=== PATIENT | male | born 1960 | race Caucasian/White ===

== ENCOUNTER → 2017-07-09 07:10 | Outpatient (CLI) | payer BC, SELFPAY ==
[2017-07-09 08:18] LABS: AST(SGOT) 16 U/L (15-37); Alanine Aminotransfer ALT/SGPT 27 U/L (16-61); Albumin, Serum 3.3 g/dL (3.2-5.0); Alkaline Phosphatase 65 U/L (45-117); Bilirubin, Direct 0.14 mg/dL (0.00-0.30); Cholesterol 120 mg/dL (200); Globulin 3.7 g/dL (2.2-4.2); High Density Lipoprotein 49 mg/dL; Triglycerides 85 mg/dL; Very Low Density Lipoprotein 17 mg/dL (5-40)
== END ==
PROVIDERS: Family Provider Internal Medicine; PCP Internal Medicine; Visit Provider Internal Medicine Cardiovascular Disease
DX: E78.5 Hyperlipidemia, unspecified (principal); Z79.899 Other long term (current) drug therapy
CPT/HCPCS: 36415; 80061; 80076

== ENCOUNTER → 2018-07-10 08:50 | Outpatient (CLI) | payer BC, SELFPAY ==
[2018-07-10 09:51] LABS: AST(SGOT) 24 U/L (15-37); Alanine Aminotransfer ALT/SGPT 38 U/L (16-61); Albumin, Serum 3.3 g/dL (3.2-5.0); Alkaline Phosphatase 68 U/L (45-117); Bilirubin, Direct 0.11 mg/dL (0.00-0.30); Cholesterol 132 mg/dL (200); Globulin 3.6 g/dL (2.2-4.2); High Density Lipoprotein 52 mg/dL; Protein, Total 6.9 g/dL (6.4-8.2); Triglycerides 82 mg/dL; Very Low Density Lipoprotein 16 mg/dL (5-40)
== END ==
PROVIDERS: Family Provider Internal Medicine; PCP Internal Medicine; Referring Provider Internal Medicine Cardiovascular Disease; Visit Provider Internal Medicine Cardiovascular Disease
DX: E78.5 Hyperlipidemia, unspecified (principal); Z79.899 Other long term (current) drug therapy
CPT/HCPCS: 36415; 80061; 80076

== ENCOUNTER → 2018-11-03 11:44 | Outpatient (CLI) | payer SELFPAY, BC ==
[2018-07-24 15:57] VITALS: BMI 23.8
--- NOTE | 2018-11-03 17:33 | STRESSREP_ITS ---
Stress Test Report Exercise stress test. 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 Medications Plavix ramipril metoprolol aspirin atorvastatin. Stress protocol: Resting EKG demonstrates sinus bradycardia with a rate of 46 bpm. Resting blood pressures 118/70 mmHg. The patient exercised according to regular Dawit protoco l for total duration of 11 minutes and 18 seconds completing 2 minutes and 18 seconds to stage IV of the Dawit protocol the maximum heart rate attained was 142 bpm which was 86% of maximum predicted heart rate. The maximum workload was 13.4 metabolic equivalents. Patient maintained sinus rhythm throughout the recording. At rest there were no ST or T wave changes noted suggest ischemia peak exercise upsloping ST changes were noted with no meet the criteria for ischemia. The resting blood pressures 118/70 mmHg with a peak blood pressure of 162/80 mmHg. No clinical angina was noted. No arrhythmias were noted. Conclusion: Exercise stress test with no EKG criteria for ischemia at high workload. Excellent functional capacity. No arrhythmias noted.
== END ==
PROVIDERS: Family Provider Internal Medicine; PCP Internal Medicine; Referring Provider Internal Medicine Cardiovascular Disease; Visit Provider Internal Medicine Cardiovascular Disease
DX: I25.10 Atherosclerotic heart disease of native coronary artery without angina pectoris (principal); R00.2 Palpitations; I10 Essential (primary) hypertension; E78.5 Hyperlipidemia, unspecified; Z95.5 Presence of coronary angioplasty implant and graft; Z98.890 Other specified postprocedural states
CPT/HCPCS: 93017

== ENCOUNTER → 2019-05-07 07:38 | Outpatient (CLI) | payer BC, SELFPAY ==
[2018-07-24 15:57] VITALS: BMI 23.8
[2019-05-07 07:56] LABS: Absolute Lymphocyte Count 1.66 X10^3/uL (0.83-4.51); Absolute Neutrophil Count 5.6 X10^3/uL (2.0-7.7); Basophil# 0.04 X10^3/uL; Basophil% 0.5 % (0-1); Eosinophil# 0.21 X10^3/uL; Eosinophils% 2.6 % (0-5); Hematocrit 48.5 % (40-54); Hemoglobin 16.1 g/dL (13.0-16.5); Lymphocyte # 1.66 X10^3/ul (4.0); Lymphocyte % 20.2 % (19-41); Mean Corp Hgb Conc 33.2 g/dL (32-36); Mean Corpuscular Hgb 31.9 pg (27.0-32.0); Mean Corpuscular Volume 96.2 fL (80-94); Mean Platelet Vol. 9.8 fl (6.2-12.0); Monocyte# 0.65 X10^3/uL; Monocyte% 7.9 % (0-10); NRBC Flagged by Analyzer 0 % (0-5); Neutrophil # 5.63 X10^3/uL (2.7-7.7); Neutrophil % 68.3 % (47-70); Platelet Count 240 K/mm3 (150-450); RBC Distribution Width CV 13.1 % (11.6-14.6); RBC Distribution Width SD 46.3 fl (35.1-43.9); Red Blood Count 5.04 M/mm3 (4.6-6.2); White Blood Count 8.2 K/mm3 (4.4-11.0)
[2019-05-07 08:19] LABS: Microalbumin,Random Urine 6.8 mg/L (NO RANGE EST.); Microalbumin:Creatinine Ratio 4.7 mg/g CRE (<30 mg/g CRE)
[2019-05-07 08:31] LABS: ALB/GLOB Ratio 0.9 RATIO (0.9-2.4); AST(SGOT) 29 U/L (15-37); Alanine Aminotransfer ALT/SGPT 54 U/L (16-61); Albumin, Serum 3.3 g/dL (3.2-5.0); Alkaline Phosphatase 73 U/L (45-117); Anion Gap 4 (5-15); BUN 14 mg/dL (7-18); Bilirubin, Direct 0.11 mg/dL (0.00-0.30); Calcium,Total 8.1 mg/dL (8.5-10.1); Chloride 106 mmol/L (98-107); Cholesterol 152 mg/dL (200); Creatinine, Serum 0.88 mg/dL (0.70-1.30); EST Glomerular Filtration Rate 95 mL/min (>60); Est Glom Filt Rate - Afr Amer 115 mL/min (>60); Globulin 3.7 g/dL (2.2-4.2); Glucose 97 mg/dL (74-106); High Density Lipoprotein 50 mg/dL; PSA,Total - Annual Screen 9.36 ng/mL (0.00-4.00); Potassium 4.2 mmol/L (3.5-5.1); Sodium Level 140 mmol/L (136-145); Thyroid Stim Hormone (TSH) 2.86 uIU/mL (0.358-3.74); Triglycerides 140 mg/dL; Very Low Density Lipoprotein 28 mg/dL (5-40)
[2019-05-08 12:07] LABS: CHOLESTEROL TOTAL 156 mg/dL (100-199); HDL-C 45 mg/dL (>39); HDL-P TOTAL 33.7 umol/L (>=30.5); SMALL LDL-P 637 nmol/L (<=527); TRIGLYCERIDES 132 mg/dL (0-149)
[2019-05-08 13:33] LABS: INSULIN RESISTANCE SCORE 64 (<=45); LDL SIZE 20.3 nm (>20.5); LDL-C 85 mg/dL (0-99); LDL-P 966 nmol/L (<1000)
== END ==
PROVIDERS: Internal Medicine Cardiovascular Disease; Family Provider Internal Medicine; PCP Internal Medicine; Referring Provider Internal Medicine; Visit Provider Internal Medicine
DX: I25.10 Atherosclerotic heart disease of native coronary artery without angina pectoris (principal); Z12.5 Encounter for screening for malignant neoplasm of prostate; E78.5 Hyperlipidemia, unspecified
CPT/HCPCS: 36415; 80053; 80061; 82043; 82248; 82570; 83704; 84153; 84443; 85025; G0103

== ENCOUNTER → 2020-07-07 07:48 | Outpatient (CLI) | payer BC, SELFPAY ==
[2019-07-30 08:59] VITALS: BMI 24.0
[2020-07-07 09:01] LABS: AST(SGOT) 23 U/L (15-37); Alanine Aminotransfer ALT/SGPT 36 U/L (16-61); Albumin, Serum 3.3 g/dL (3.2-5.0); Alkaline Phosphatase 79 U/L (45-117); Bilirubin, Direct 0.19 mg/dL (0.00-0.30); Cholesterol 136 mg/dL (200); Globulin 3.8 g/dL (2.2-4.2); High Density Lipoprotein 56 mg/dL; Protein, Total 7.1 g/dL (6.4-8.2); Triglycerides 104 mg/dL; Very Low Density Lipoprotein 21 mg/dL (5-40)
== END ==
PROVIDERS: PCP Internal Medicine; Referring Provider Internal Medicine Cardiovascular Disease; Visit Provider Internal Medicine Cardiovascular Disease
DX: E78.5 Hyperlipidemia, unspecified (principal); I25.10 Atherosclerotic heart disease of native coronary artery without angina pectoris
CPT/HCPCS: 36415; 80061; 80076

== ENCOUNTER 2020-07-29 20:15 | Outpatient (RCR) | payer BC, SELFPAY ==
[2019-07-30 08:59] VITALS: BMI 24.0
[2020-07-28 16:04] VITALS: BMI 23.8
[2020-07-29] MEDS: COVID-19 VACC, MRNA(PFIZER)/PF 30 MCG/0.3 ML SYRINGE IM (09:48)
[2020-08-19] MEDS: COVID-19 VACC, MRNA(PFIZER)/PF 30 MCG/0.3 ML SYRINGE IM (09:25)
== END 2020-07-29 23:59 ==
LOC: IMMUN 20:15
PROVIDERS: PCP Internal Medicine; Visit Provider Family Medicine
DX: Z23 Encounter for immunization (principal)
CPT/HCPCS: 0001A; 0002A; 91300

== ENCOUNTER → 2021-04-27 | Outpatient (CLI) | payer BC, SELFPAY ==
--- NOTE | 2021-04-27 | IMM_PTH ---
PATIENT: DIMPLE BAIG LOC: [facility] U#:[id number] AGE/SX: 60/M ROOM: RE04/27/[address]: Dr. Sushil Monroy MD : 1960 BED: DIS: 04/27/2021 SPEC #: [id number] RECD: 05/01/21 14:35 STATUS: [facility] REShant #: [id number] NIDHI: 04/27/21 00:[address]: Sushil Monroy DEPT: IMMUNOHISTOCHEMISTRY RECD BY: Amelia Suero ENTERED: 05/01/21 14:36 SP TYPE: IMMUNO OTHR DR: Dr. Shelby Arce DO Tissues: C - PROSTATE RIGHT F - PROSTATE LEFT Procedures: 34BE12 (add) P40 (add) 34BE12 (initial) PHYSICIAN & INSTITUTION [place] [id number] SPECIMEN INFORMATION: Tissue Source: C - Right prostate, base, core biopsy, F - Left prostate, base, core biopsy Clinical Info: Elevated PSA Specimen Number: [id number] C & F CPT code: 01856, 95381 x3 METHODOLOGY: Deparaffinized sections of prefer/formalin-fixed tissue or PAP/DQ stained slides are incubated with monoclonal/polyclonal antibodies/oligonucleotide probes. Localization is made via biotin free immunoperoxidase method. Appropriate controls are performed and reacted as expected. Results on target cell population are indicated in the following table: RESULTS: ANTIBODY / CLONE RESULT Block C 34BE12 (34BE12) negative P40 (BC28) negative Block F 34BE12 (34BE12) negative P40 (BC28) negative These tests were developed and their performance characteristics determined by [facility]. They may not have been cleared or approved by the U.S. Food and Drug Administration. The FDA has determined that such clearance or approval is not necessary. The above immunohistochemical/dualISH markers are ordered and reviewed by the Pathologist. INTERPRETATION: C. Right prostate, base, core biopsy: Adenocarcinoma. F. Left prostate, base, core biopsy: Adenocarcinoma. AM:aroldo 05/02/2021
--- NOTE | 2021-04-27 | PROSBIL_PTH ---
PATIENT: DIMPLE BAIG LOC: [facility] U#:[id number] AGE/SX: 60/M ROOM: RE04/27/[address]: Dr. Sushil Monroy MD : 1960 BED: DIS: 04/27/2021 SPEC #: [id number] RECD: 04/27/21 16:36 STATUS: [facility]TER #: [id number] NIDHI: 04/27/21 00:[address]: Sushil Monroy DEPT: SURGICAL PATHOLOGY RECD BY: Noe Motley ENTERED: 04/28/21 09:49 SP TYPE: PROST BX CHANDRA DR: Dr. Shelby Arce DO Tissues: A - PROSTATE RIGHT B - PROSTATE RIGHT C - PROSTATE RIGHT D - PROSTATE LEFT E - PROSTATE LEFT F - PROSTATE LEFT Procedures: PROSTATE BX HEADER OPERATION: Prostate biopsy PRE-OP DIAGNOSIS: Elevated PSA TISSUE SUBMITTED: A - Right apex, B - Right mid, C - Right base, D - Left apex, E - Left mid, F - Left base MICROSCOPIC DIAGNOSIS A. Right prostate, apex, core biopsy: Benign prostatic tissue. B. Right prostate, mid, core biopsy: Minimal chronic inflammation. C. Right prostate, base, core biopsy: Adenocarcinoma. New [place] grade: 6 (3+3) Cores involved: 1 out of 2 cores Tissue involved: 5% Greatest tumor length: 1 millimeters See comment. D. Left prostate, apex, core biopsy: Adenocarcinoma. New [place] grade: 7 (3+4) Cores involved: 1 out of 1 core Tissue involved: 90% Greatest tumor length: 10 millimeters E. Left prostate, mid, core biopsy: Adenocarcinoma. New [place] grade: 7 (3+4) Cores involved: 1 out of 1 core Tissue involved: 100% Greatest tumor length: 8 millimeters F. Left prostate, base, core biopsy: Adenocarcinoma. Evan grade: 7 (3+4) Cores involved: 2 out of 2 cores Tissue involved: 50% Greatest tumor length: 9 millimeters Focal perineural invasion. See comment. AM:aroldo 05/01/2021 COMMENT C & F. Immunohistochemistry ([id number]) supports the above diagnosis. MICROSCOPIC DESCRIPTION Slides are reviewed. GROSS DESCRIPTION A - Received is one container designated prostate, right apex. The specimen consists of one elongated fragment of light abreu-white soft tissue measuring 1.5 cm in length and 0.1 cm in diameter. The specimen is totally submitted in one cassette. B - Received is one container designated prostate, right mid. The specimen consists of one elongated fragment of light abreu-white soft tissue measuring 1 cm in length and 0.1 cm in diameter. The specimen is totally submitted in one cassette. C - Received is one container designated prostate, right base. The specimen consists of two elongated fragments of light abreu-white soft tissue each measuring 1 cm in length and 0.1 cm in diameter. The specimen is totally submitted in one cassette. D - Received is one container designated prostate, left apex. The specimen consists of one elongated fragment of light abreu-white soft tissue measuring 1 cm in length and 0.1 cm in diameter. The specimen is totally submitted in one cassette. E - Received is one container designated prostate, left mid. The specimen consists of one elongated fragment of light abreu-white soft tissue measuring 1 cm in length and 0.1 cm in diameter. The specimen is totally submitted in one cassette. F - Received is one container designated prostate, left base. The specimen consists of two elongated fragments of light abreu-white soft tissue each measuring 1.5 cm in length and 0.1 cm in diameter. The specimen is totally submitted in one cassette. / AM:aroldo 04/28/21 TC:0 [facility]: [id number] x6
== END | disposition home or self-care (01) ==
LOC: LABSPEC 16:57
PROVIDERS: PCP Internal Medicine; Visit Provider Urology
DX: R97.20 Elevated prostate specific antigen [PSA] (principal)
CPT/HCPCS: 88305; 88341; 88342; G0416

== ENCOUNTER 2021-05-30 16:08 | Outpatient (CLI) | payer BC, SELFPAY ==
--- NOTE | 2021-05-30 16:46 | MRI_ITS ---
STUDY: MR PELVIS WITH AND WITHOUT CONTRAST (PROSTATE) REASON FOR EXAM: Male, 60 years old. Elevated PSA TECHNIQUE: Standardized multiparametric prostate MRI with T1, T2, DWI/ADC sequences were obtained in 3 orthogonal planes, and dynamic contrast enhancement sequences. 15 ml of dOTAREM contrast material was administered intravenously for the contrast portion of the examination. COMPARISON: None. FINDINGS: The prostate volume measures 20 mm3. The contours of the prostate gland are smooth. There is not mass effect on the bladder base. The transition zone is heterogenous. PI-RADS DWI score 3 - Focal mildly hypointense on ADC and isointense/mildly hyperintense on high b-value DWI. PI-RADS T2W score 2 - A mostly encapsulated nodule OR a homogeneous circumscribed nodule without encapsulation (atypical nodule) or a homogeneous mildly hypointense area between nodules.. Contrast enhancement no early or contemporaneous enhancement; or diffuse multifocal enhancement NOT corresponding to a focal finding on T2W and/or DWI or focal ehancement responding to a lesion demonstrating features of BPH onT2WI (including features of extruded BPH in the PZ). The peripheral zone is heterogenous. PI-RADS DWI score 2 - Linear/wedge shaped hypointense on ADC and/or linear/wedge shaped hyperintense on high b-value DWI. PI-RADS T2W score 2 - Linear, wedge-shaped, or diffuse mild hypointensity, usually with indistinct margin. Contrast enhancement no early or contemporaneous enhancement; or diffuse multifocal enhancement NOT corresponding to a focal finding on T2W and/or DWI or focal enhancement responding to a lesion demonstrating features of BPH onT2WI (including features of extruded BPH in the PZ). The seminal vesicles demonstrate multiple simple appearing cysts.. No mass lesion or invasion depicted. The rectoprostatic angles are normal. Urinary bladder is normal without wall thickening. The vascular structures of the are normal. The visualized hollow viscus structures are normal. Mildly enlarged lymph nodes in the bilateral inguinal regions measuring up to 1.0 x 1.5 cm on the right and 1.0 x 2.0 cm on the left. Heterogeneous signal intensity of the pelvic bone marrow likely represents fatty marrow conversion without nato edema or destructive osseous process. MRI/Pelvis W/WO Contrast IMPRESSION: 1. PIRADS v2.1 2019 -- 2 - Low (clinically significant cancer is unlikely). 2. Mild bilateral inguinal adenopathy. Electronically Signed: Capo Henderson MD (Brooks) at 8:59 EST , Service support ,
[2021-05-30 16:55] LABS: CREATININE FINGERSTICK 0.9 mg/dL (0.70-1.30); EGFR FINGERSTICK > 60.0000 mL/min (>60)
== END 2021-05-30 23:59 | disposition short-term general hospital (02) ==
PROVIDERS: PCP Internal Medicine; Visit Provider Urology
DX: C61 Malignant neoplasm of prostate (principal)
CPT/HCPCS: 72197; A9575

== ENCOUNTER 2021-06-02 08:58 | Outpatient (CLI) | payer BC, SELFPAY ==
--- NOTE | 2021-06-02 09:01 | NM_ITS ---
CLINICAL: 60-year-old male with history of carcinoma of the prostate. WHOLE BODY 99m Tc MDP RADIONUCLIDE BONE SCINTIGRAPHY COMPARISON: MRI of the pelvis report 05/30/2021 FINDINGS: Following the intravenous administration of 26.0 mCi of 99m Tc MDP, whole body bone images reveal: 1. Increased radiopharmaceutical concentration is defined in the mid cervical spine posteriorly on the right, lower cervical spine posteriorly on the left, fifth lumbar vertebra posteriorly on the left, acromioclavicular and sternoclavicular compartments of both shoulders, the left wrist, right forefoot. 2. The remaining skeletal structures are scintigraphically unremarkable with normal-appearing renal images and urinary bladder activity identified. Calcification is encountered in the bilateral costochondral junctions. Asymmetric increased tracer uptake is noted in the right proximal tibial metaphysis-lateral tibial plateau most consistent with periostitis. NM/Bone Scan Whole Body IMPRESSION: 1. The increase in radiopharmaceutical concentration defined in the cervical and lumbar spine, bilateral shoulders, left wrist and right forefoot is most consistent with degenerative arthritis. 2. There is no definitive typical scintigraphic evidence of diffuse axial skeletal metastatic disease on the current examination. Electronically Signed: Dc Fleming DO at 10:35 EST Tel , Service support ,
== END 2021-06-02 23:59 | disposition short-term general hospital (02) ==
LOC: NM 09:00
PROVIDERS: PCP Internal Medicine; Referring Provider Urology; Visit Provider Urology
DX: C61 Malignant neoplasm of prostate (principal)
CPT/HCPCS: 78306; A9503

== ENCOUNTER 2021-06-23 05:24 | Day surgery (SDC) | payer BC, SELFPAY ==
[2021-06-20 08:00] LABS: Hematocrit 43.7 % (40-54); Hemoglobin 14.9 g/dL (13.0-16.5); Mean Corp Hgb Conc 34.1 g/dL (32-36); Mean Corpuscular Hgb 32.2 pg (27.0-32.0); Mean Corpuscular Volume 94.4 fL (80-94); Mean Platelet Vol. 9.8 fl (6.2-12.0); Platelet Count 253 K/mm3 (150-450); RBC Distribution Width CV 12.7 % (11.6-14.6); RBC Distribution Width SD 43.8 fl (35.1-43.9); Red Blood Count 4.63 M/mm3 (4.6-6.2); White Blood Count 5.8 K/mm3 (4.4-11.0)
--- NOTE | 2021-06-20 08:10 | EKG12_ITS ---
Test Reason : PREOP Blood Pressure : / mmHG Vent. Rate : 051 BPM Atrial Rate : 051 BPM P-R Int : 190 ms QRS Dur : 074 ms QT Int : 408 ms P-R-T Axes : 039 035 034 degrees QTc Int : 376 ms Sinus bradycardia Otherwise normal ECG Confirmed by SATINDER JIMENEZ, MIRNA ([id number]), business editor PRANAY ESCOBAR ([id number]) on 06/21/2021 9:38:46 AM Referred By: Sushil Monroy Confirmed By:MIRNA RAJAN MD
[2021-06-20 08:29] LABS: Anion Gap 5 (5-15); BUN 14 mg/dL (7-18); BUN/Creat Ratio 16.2 RATIO (10-20); Calcium,Total 8.5 mg/dL (8.5-10.1); Chloride 106 mmol/L (98-107); Creatinine, Serum 0.86 mg/dL (0.70-1.30); EST Glomerular Filtration Rate 96 mL/min (>60); Est Glom Filt Rate - Afr Amer 117 mL/min (>60); Glucose 108 mg/dL (74-106); Potassium 4.5 mmol/L (3.5-5.1); Sodium Level 140 mmol/L (136-145)
[2021-06-20 08:37] LABS: AST(SGOT) 21 U/L (15-37); Alanine Aminotransfer ALT/SGPT 47 U/L (16-61); Albumin, Serum 3.1 g/dL (3.2-5.0); Alkaline Phosphatase 76 U/L (45-117); Bilirubin, Direct 0.16 mg/dL (0.00-0.30); Cholesterol 130 mg/dL (200); High Density Lipoprotein 49 mg/dL; Protein, Total 7.1 g/dL (6.4-8.2); Triglycerides 116 mg/dL; Very Low Density Lipoprotein 23 mg/dL (5-40)
[2021-06-23] VITALS (11 sets, daily range): BP systolic 116–159; BP diastolic 58–84; PULSE 57–76; RESP 16–18; TEMP 36.1–36.9; O2SAT 95–100; BMI 24.0
--- NOTE | 2021-06-23 07:30 | PROST_PTH ---
PATIENT: DIMPLE BAIG LOC: [facility] [place] U#:[id number] AGE/SX: 60/M ROOM: RE06/23/[address]: Dr. Sushil Monroy MD : 1960 BED: DIS: 06/24/2021 SPEC #: [id number] RECD: 06/23/21 13:09 STATUS: [facility] #: [id number] NIDHI: 06/23/21 07:[address]: Sushil Monroy DEPT: SURGICAL PATHOLOGY RECD BY: Sridevi Ordonez ENTERED: 06/23/21 13:28 SP TYPE: PROSTATE OTHR DR: MD Dr. Randolph Huang MD Dr. Kathleen Fearon, DO Tissues: A - Adipose tissue B - Lymph node of pelvis, NOS C - Lymph node of pelvis, NOS D - Prostate, NOS Procedures: Surgery Specimen Level IV Surgery Specimen Level V Surgery Specimen Level HEADER OPERATION: Lap robotic prostatectomy with nerve sparing, nerve monitoring PRE-OP DIAGNOSIS: History of intermediate risk prostate cancer TISSUE SUBMITTED: A ? Fat over prostate, B ? Left pelvic lymph node, C ? Right pelvic lymph node, D - Prostate MICROSCOPIC DIAGNOSIS A. Fat over prostate, biopsy: Mature adipose tissue. No evidence of malignancy. B. Left pelvic lymph nodes, regional lymphadenectomy: Four out of four lymph nodes negative for carcinoma. C. Right pelvic lymph nodes, regional lymphadenectomy: One out of one lymph node negative for carcinoma. D. Prostate, radical prostatectomy: Adenocarcinoma. See synoptic report below. AM:aroldo 06/27/2021 COMMENT PROSTATE CANCER (RADICAL) SUMMARY: Procedure: Radical Prostatectomy Prostate Size: Weight: 34 gm Size: 4 x 3.5 x 3 cm Histologic Type: Adenocarcinoma Histologic Grade: 7 Percent of Pattern 4: 20% Percent of Pattern 5: 0 Intraductal Carcinoma: Not identified Tumor Quantitation: 2.2 x 2 x 1 cm (from glass slides) Extraprostatic Extension: Not identified Urinary Bladder Neck Invasion: Not identified Seminal Vesicle Invasion: Not identified Lymphvascular Invasion: Not identified Perineural Invasion: Present, frequent Margins: Free of carcinoma Regional Lymph Nodes: Number of lymph nodes involved by carcinoma: 0 Total number of lymph nodes examined: 5 See specimens A & B Treatment Effect: Unknown Additional Pathologic Findings: High-grade prostatic intraepithelial neoplasia and chronic inflammation. PATHOLOGIC STAGE: T2 N0 Mx The above summary is in compliance with [employer] (CAP) Cancer Protocols Checklist and [place] Joint Committee on Cancer (AJCC), Staging Manual, 8th Ed. Reference is made to the patient's previous prostate biopsies ([id number]) in which prostatic adenocarcinoma 7 (3+4) was identified. Case has been reviewed in consultation with Dr. Rich who concurs with the above diagnosis. IDC:[id number] MICROSCOPIC DESCRIPTION Slides are reviewed. GROSS DESCRIPTION A - Received in fixative is one container labeled with the patient's name and designated fat over prostate. The specimen consists of a piece of adipose tissue measuring 2 x 1.5 x 0.2 cm. The entire specimen is submitted in one cassette. / : 06/23/2021 B - Received in fixative is one container labeled with the patient's name and designated left pelvic lymph node. The specimen consists of a piece of adipose tissue containing nodules measuring 4 x 2 x 1 cm. Four nodules consistent with lymph nodes are identified measuring 0.5 to 2 cm in greatest dimension. The entire specimen is submitted in three cassettes as follows: 1 - three lymph nodes, 2 - one bisected lymph node, 3 - rest of the specimen. / : 06/23/2021 C - Received in fixative is one container labeled with the patient's name and designated right pelvic lymph node. The specimen consists of a piece of adipose tissue containing nodules consistent with lymph nodes measuring 6 x 1.5 x 0.8 cm. One nodule consistent with lymph node is identified measuring 3 cm in greatest dimension. The entire specimen is submitted in three cassettes as follows: 1 & 2 - one bisected lymph node, 3 - rest of the specimen. / : 06/23/2021 D - Received in fixative is one container labeled with the patient's name and designated prostate. The specimen consists of a radical prostatectomy specimen consisting of prostate with bilateral seminal vesicles weighing 34 gm. The prostate measures 4 cm transversely, 3 cm anterior-posteriorly and 3.5 cm craniocaudally. The right seminal vesicle measures 2.5 x 1.5 x 0.5 cm and right vas deferens measures 3 cm in length and up to 0.5 cm in diameter. The left seminal vesicle measures 2.5 x 1 x 0.5 cm and the left vas deferens measures 2.5 cm in length and 0.5 cm in diameter. The prostate is inked as follows: posterior surface prostate - black, anterior surface prostate - yellow, right lateral surface - blue, left lateral surface - green. The bilateral seminal vesicles and vas deferens are inked as follows: posterior surface bilateral seminal vesicle and vas deferens - black, anterior surface right seminal vesicle and vas deferens - blue and anterior left seminal vesicle and vas deferens - green. Sections do not reveal any obvious mass lesion. [employer] sections are submitted in 20 cassettes as follows: 1 - right seminal vesicle and vas deferens, 2 - left seminal vesicle and vas deferens, 3 - apical margin, enface, 4 & 5 ? basal mucosal/bladder margin prostate, enface, 6-10 - apical portion of prostate, 11-14 - middle portion of prostate, 15-20 - basal portion of prostate. / NO:aroldo 06/26/2021 TC:0 CPT: 14790, 18557 x2, 48529
[2021-06-23] MEDS: Cefazolin 2 GM in 0.9% Normal Saline 100 ML IV (07:34)
[2021-06-23] MEDS: Lactated Ringers 1,000 ML 150 ML IV ×3 (07:40→21:57)
--- NOTE | 2021-06-23 07:43 | HP.PCM_ITS ---
HPI - General HPI Narrative DIMPLE BAIG, is a 60 M who presents for radical prostatectomy history of intermediate risk prostate cancer plan to proceed with nerve sparing and bilateral pelvic lymph node dissection we will do monitoring of the EMG sphincter and pelvic nerves. [facility] Medical History (Updated 06/23/21 @ 07:[address] Sushil Monroy MD) Atherosclerotic heart disease of [place] coronary artery without angina pectoris Cancer Chest pain Essential (primary) hypertension History of heart attack History of stress test Hyperlipidemia Hypertension Palpitations Prostate disease Wears glasses Home Medications atorvastatin 80 mg tablet 80 mg PO QDAY #90 tab 10/11/20 [Rx Last Taken 06/22/21] metoprolol tartrate 25 mg tablet 25 mg PO BID #180 tab 10/11/20 [Rx Last Taken 06/22/21] ramipril 1.25 mg capsule 1.25 mg PO QDAY #90 cap 10/11/20 [Rx Last Taken 06/22/21] ciprofloxacin HCl [Cipro] 500 mg PO BID #20 tab 06/23/21 [Rx Last Taken Unknown] docusate sodium [Colace] 100 mg PO BID #20 cap 06/23/21 [Rx Last Taken Unknown] oxycodone-acetaminophen 1 tab PO Q6H PRN 7 Days #14 tab 06/23/21 [Rx Last Taken Unknown] Allergy/AdvReac Type Severity Reaction Status Date / Time No Known Allergies Allergy Verified 06/23/21 06:05 Family History Father Mitral valve regurgitation Congestive heart failure Surgical History (Updated 06/14/21 @ 09:00 by Cathi Wheeler) History of coronary artery stent placement (10/2006) History of dental surgery History of left heart catheterization (05/21/07) History of right inguinal hernia repair History of vasectomy Social History (Updated 07/28/20 @ 16:[address] Tyrone Hi MD) Smoking Status: Former smoker pack-years: 20 Vital Signs Vital Signs Vital Signs: 06/23/21 06:09 Temperature 98.3 F Temperature Source Temporal Pulse Rate 57 L Respiratory Rate 18 Blood Pressure 116/75 Blood Pressure Mean 88 Blood Pressure Source Monitor Blood Pressure Position Semi-Fowlers Blood Pressure Location Right Arm Pulse Ox 96 Oxygen Delivery Method Room Air Weight Weight: 78 kg Body Mass Index (BMI) 24.0 Results Lab / Micro Data Result Diagrams: 06/20/21 07:46 06/20/21 07:46
--- NOTE | 2021-06-23 07:44 | PCM.DC ---
Discharge Instructions Diet Discharge Diet: Light diet - advance as tolerated and Soft diet Activity Discharge Activity: May Not Drive (while taking narcotic pain medications.) May shower in (days): 1 Lifting Restrictions: No lifting >10 lbs for 6 weeks Dressing / Incision Call your doctor if you observe: Fever of 101 or Higher Cleanse incision/area with: Soap & Water Catheter: Jordan to leg bag and Jordan to large bag Drain: Freedom Follow Up Care Please Follow Up With: Sushil Monroy MD When: Call [phone] for an appointment Test Results: Test results from this visit will be discussed in further detail at your follow-up appointment, if applicable. Discharge Plan Admission Primary Reason for Your Visit: Radical Prostatectomy Attending Provider: Sushil Monroy Primary Care Provider: Shelby Arce Consulting Providers: Tyrone Hi ; Randolph Gonzalez Instructions Patient Instructions: Radical Prostatectomy Dc Discharge Orders/Prescriptions Prescriptions: New ciprofloxacin HCl [Cipro] 500 mg tablet 500 mg PO BID Qty: 20 RF: 0 oxycodone-acetaminophen 5-325 mg tablet 1 tab PO Q6H PRN (Reason: pain) 7 Days Qty: 14 RF: 0 docusate sodium [Colace] 100 mg capsule 100 mg PO BID Qty: 20 RF: 0 Continued metoprolol tartrate 25 mg tablet 25 mg PO BID Qty: 180 RF: 3 ramipril [Altace] 1.25 mg capsule 1.25 mg PO QDAY Qty: 90 RF: 3 atorvastatin 80 mg tablet 80 mg PO QDAY Qty: 90 RF: 3 Discontinued aspirin [Adult Low Dose Aspirin] 81 mg tablet,delayed release (DR/EC) 81 mg PO .q day RF: 0 clopidogrel [Plavix] 75 mg tablet 75 mg PO QDAY Qty: 90 RF: 3 Other Ambulatory Orders: 12 Lead EKG (Routine) Timeframe: [id number] Location: None Selected Ordered By: Dr. Randolph Gonzalez Referrals / Follow Up: Sushil Monroy MD [STAFF PHYSICIAN] - Shelby Arce DO [Primary Care Provider] - Disposition Disposition (needs filled in before D/C Order can be placed): Home, Self Care
[2021-06-23] MEDS: Bupivacaine 0.25% 30 ML Vial (11:48)
--- NOTE | 2021-06-23 11:51 | PCM.OPRPT ---
Report of Operation Date of Procedure: 06/23/21 Pre-Operative Diagnosis: Prostate cancer, BPH with urinary frequency Surgery/Procedure Performed:: Laparoscopic robotic assisted radical prostatectomy, bilateral pelvic lymph node dissection, EMG monitoring of the sphincter and pelvic nerves. Description of Surgical Findings:: Patient presented to the hospital for treatment of his prostate cancer with radical prostatectomy. In the preoperative setting we discussed the options of management for his prostate cancer including active surveillance, radiation treatments, radioactive seeds, and radical robotic prostatectomy. We discussed the side effects of surgery including the potential to lose erections. We discussed the potential to have bladder control problems with stress incontinence which can be temporary or permanent. We discussed the risk of the surgery including the risk of general anesthetic, risk of bleeding, risk of infection, and risk of formation of hernia either incisional hernia or inguinal hernia. After long discussion with the patient the preoperative setting and also reviewed this in the preop area patient signed the consent form and we proceeded with a radical prostatectomy. Patient was taken back to the operating room he was identified, time out procedure was performed and he was placed supine on the table he underwent general anesthesia with intubation. The abdomen was shaved prepped and draped in usual sterile fashion as well as the penis and testicles. A 16 Icelandic catheter was placed into the bladder with clear return of urine. I then made an incision in the umbilicus and dissected down to the fascia advance a Veress needle into the peritoneal cavity and insufflated the peritoneal cavity with CO2 gas. I then placed a 12 mm trocar above the umbilicus. I then visualized the placement of the rest of the trochars, I placed a right arm robotic trocar, and air seal trocar, a suction port 5 mm trocar. And on the left side I placed 2 robotic arms. Once all the trochars were in placed the patient was put in steep Trendelenburg. And the robot was docked the arms were docked and then I placed the 0 degree camera through the robotic arm and also used a 30 degree camera during certain parts of the case. I used scissors in the right arm, prograsp in the third arm, and a bipolar in the second arm. Initial dissection was to free the sigmoid colon off the lateral wall this was done by meticulously dissecting off the peritoneum and the sigmoid colon off the left lateral wall. This then allowed the prograsp to retract the sigmoid colon out of the pelvis. I then went below the bladder and identified the vas deferens incised the peritoneum over the vas deferens and traced the vas deferens below the bladder to the prostate and identified the right and left vasa deferens. Below behind the vas deferens then the seminal vesicles were identified. I then dissected the seminal vesicle free using pinpoint electrocautery and then we identified the other seminal vesicle and then dissected this using pinpoint electrocautery I then elevated the vas deferens and several vesicles off the prostate and was able to sweep the Denonvilliers' fascia off the prostate posteriorly all the way up to the apex of the prostate. Working laterally I made sure I went as lateral as possible to sweep the Denonilliers' fascia off the posterior aspect of the prostate and worked my way back, I then transected the vas deferens and the left and right side the seminal vesicles were then dissected free. And then I pulled out of the pelvis. At this point the bladder was dropped creating the space of Retzius with the bladder on traction with the fourth arm. Using electrocautery I dissected in the anterior peritoneal fascia and then created the space of Retzius dissecting towards the prostate. The pelvic lymph node dissection was then performed both on the left and the right pelvic lymph nodes the nodes that were taken on the right side extended from the right iliac artery lateral pelvic sidewall up to the junction of the artery and the lymph nodes and down to the obturator nerve and then also below the roller die cutting machine operator nerve all the lymph nodes were removed during to remove those lymph nodes we used clips and electrocautery to control small blood vessels and also the control lymphatic. I then went to the left side and again did an extensive lymph node dissection starting of the left iliac artery extending the left iliac vein on the lateral sidewall down to the obturator nerve and the left side beyond the roller die cutting machine operator nerve down further behind it cleaning out all the lymphatic tissue all this tissue was sent off as a specimen we use clips and electrocautery during the dissection. At the end we cleaned out all the lymphatic tissue on the right pelvic wall and no lymphatic tissue in the left pelvic wall. The prostate was then cleaned of the fat over the prostate and the fourth arm was used to retract the bladder and place traction. I then identified the endopelvic fascia that was overlying the prostate on the right side I incised endopelvic fascia and wwept the levator muscles off the prostate all the way to the apex on the right side, I then worked my way anterior to the prostate then transected to the puboprostatic ligament and the underlying dorsal vein complex was not injured. I then went to the other side and identified the endopelvic fascia in the left side incised in a fashion the left side and swept the levator muscles off the prostate on the left side all the way up to the apex the puboprostatic ligament on the left side was then dissected and transected I then freed up the fascia overlying the dorsal vein complex. I then used the prograsp to encircled the dorsal vein complex with the prograsp and then switched over to the right and left needle front loader residential driver and suture ligated the dorsal vein complex above the prograsp. The prograsp was then placed back in the bladder and put back on traction I then identified the junction between the bladder and the prostate and dissected down between the bladder and the prostate untilI came across the catheter we then dissected posteriorly to the bladder and prostate to free the prostate and the bladder off each other and the muscles between the bladder and the prostate was then cauterized to free up the bladder. I then placed the EMG electrodes into the abdomen where the kit provided from the pro-Pep intranerve monitoring team, after the electrodes were placed I placed the first electrode on the right side and the right levator muscles on the second electrode the left side the left levator muscles we then used the action potential to map out the nerves on the pelvic floor running laterally on both the left and right side after these were mapped out and I continued with the dissection. I then went on top of the prostate and identified the endopelvic fascia on top of the prostate this was incised all the way to the apex and then we swept the endopelvic fascia off the prostate laterally and then identified the plane between endopelvic fascia and the prosthetic pseudocapsule and swept the fascia laterally until reaching the course of the neurovascular bundles and then released the neurovascular bundles off the prostate laterally all the way back in a retrograde fashion back to the junction of the pedicles then the prostate was placed on traction with the fourth arm pulling the prostate laterally identified the pedicle to the prostate between the seminal vesicles and the and the neurovascular bundle and this was taken using sequential small hemolocks. After the pedicle was taken the I then dissected underneath the prostate sweeping the neurovascular bundle off the prostate we able to follow the nice smooth plane between the neurovascular bundle and the pseudocapsule all the way to the apex once this was identified we swept this up all the way up to the apex and there was perfect nerve sparing on the right side. Then went to the left side the prostate identified the endopelvic fascia over the left side of the prostate I incised the endopelvic fascia all the way to the apex and then swept this off laterally I then released the neurovascular bundles on the left side of the prostate sweeping him off the prostate laterally I then elevated the prostate up up with the prostate and traction identified the pedicle to the prostate on the left side and then the pedicles taken with sequential Hem-o-nighat clips I then was able to dissected the neurovascular bundle off the left posterior aspect the prostate this was a perfect dissection all the way up on the left side following the pseudocapsule all the way up the left side until we reached the apex of the prostate. After the both the neurovascular bundles has been swept off the posterior to the prostate I then went above and transected the dorsal vein complex there was minimal to no bleeding but then dissected down to the urethra and circumfencial dissected around the urethra I then switched the right and left arm with the needle drivers and I suture-ligated the dorsal vein complex again just to ensure that there was no bleeding from the dorsal vein complex. I then transected through the urethra with scissors and the prostate was then freed and released off the prostate bed and put an Endo Catch bag. At this point after the prostate had been removed I then went back the electrodes were still in place and we checked again the electrostimulation the right and left side and we confirmed that the EMG electrodes were still functioning the still action potential in both the left side confirming the sparing of the both pelvic nerves in the left and right side. Then at this point the bladder neck was reconstructed and then an anastomosis was performed between the prostate and the bladder with a 3 oh V-Loc stitch in a running fashion starting from the bladder neck at the 6 o'clock position working to the 12 o'clock position with continuous stitches to complete a perfect anastomosis between the bladder and the prostate. I then placed a new catheter into the bladder, an 18 Icelandic walker river tip catheter flushed the bladder and there was no leakage from the anastomosis I put 10 cc in the balloon and pulled it up pulled back gently. I then ensured that there was no bleeding from the dorsal vein complex no bleeding from the neurovascular bundles FloSeal was placed as necessary once hemostasis was ensured and adequate then I placed the bladder back in position in the pelvis the prostate was exchanged to the camera port I closed the air seal port with a 10 12 Jaren Hoffmann stitch. And the extracted the prostate through the umbilicus. The robot was undocked all the ports were removed under direct visualization then closed the extraction site with 0 Vicryl with a CT1 needle once the extraction site was closed. I then closed all the incision with subcuticular stitches with 4-0 Monocryl and then bandages were placed on the incisions catheter was flushed to make sure it was draining well there was no clots and it was crystal clear patient's anesthetic was reversed he was extubated and taken back to the PACU in stable condition all the needles and sponges and instruments were accounted for. Blood loss was minimal and the drain was a 18 Icelandic Jordan catheter. No other surgical drain was left. I was present during the entire case. Surgeon: jose Type of Anesthesia: General Estimated Blood Loss (mL): 150cc Admit VTE Documentation VTE Present on Admission: No VTE Mechan Device Prophylaxis: SCD's VTE Pharm Prophylaxis ordered?: No
[2021-06-23] MEDS: Ketorolac 15 MG/ML Vial IV ×2 (12:51→17:46)
[2021-06-23] MEDS: Acetaminophen 500 MG Tablet PO (20:32)
[2021-06-23] MEDS: Atorvastatin Calcium 80 MG Tablet PO (21:57)
[2021-06-23] MEDS: Metoprolol Tartrate 25 MG Tablet PO (21:57)
[2021-06-24] MEDS: Ketorolac 15 MG/ML Vial IV ×2 (00:46→06:19)
[2021-06-24 03:17] VITALS: BP 100/51; PULSE 74; RESP 16; TEMP 37.2; O2SAT 94
[2021-06-24] MEDS: Lactated Ringers 1,000 ML 150 ML IV (04:44)
[2021-06-24] MEDS: 0.9% Saline Lock 10 ML Syringe IV (06:19)
--- NOTE | 2021-06-24 08:09 | PCM.PN.BLA ---
Progress Note Status post radical prostatectomy patient doing well Jordan catheter in place draining clear yellow urine no pain after tolerates breakfast he can go home with a Jordan catheter to leg bag.
[2021-06-24 08:27] VITALS: BP 132/72; PULSE 73; RESP 18; TEMP 37.2; O2SAT 93
== END 2021-06-24 10:20 | disposition home or self-care (01) ==
LOC: SDC 05:24 → AC 05:25 → MS3 08:35
PROVIDERS: Anesthesiology; Internal Medicine Cardiovascular Disease; PCP Internal Medicine; Referring Provider Urology; Visit Provider Urology
PROC: 0VT04ZZ Resection of Prostate, Percutaneous Endoscopic Approach (ICD-10-PCS; CPT 55866; principal; 2021-06-23 07:10)
DX: C61 Malignant neoplasm of prostate (principal); I10 Essential (primary) hypertension; Z87.891 Personal history of nicotine dependence; E78.5 Hyperlipidemia, unspecified; I25.10 Atherosclerotic heart disease of native coronary artery without angina pectoris; I25.2 Old myocardial infarction; Z79.899 Other long term (current) drug therapy; Z95.5 Presence of coronary angioplasty implant and graft; Z79.02 Long term (current) use of antithrombotics/antiplatelets; Z79.82 Long term (current) use of aspirin; N40.1 Benign prostatic hyperplasia with lower urinary tract symptoms; R35.0 Frequency of micturition
CPT/HCPCS: 55866; 51785; 38760; 00865; 36415; 80048; 80061; 80076; 85027; 88304; 88305; 88307; 88309; 93005; J7120; A4216; J2405

== ENCOUNTER 2021-07-04 19:42 | Emergency (ER) | payer BC, SELFPAY ==
[2021-07-04 19:43] VITALS: BP 145/98; PULSE 77; RESP 20; TEMP 36.8; O2SAT 97; BMI 24.0
--- NOTE | 2021-07-04 21:21 | CT_ITS ---
STUDY: CTA CHEST REASON FOR EXAM: Male, 60 years old. High pretest probability for pulmonary embolus. Pain in the right shoulder blade area. Recent prostatectomy for prostate cancer. RADIATION DOSAGE (If Supplied By Facility): CTDIvol = ( 13.90 ) mGy, DLP = ( 457.95 ) mGycm TECHNIQUE: The examination was performed with the intravenous administration of IV 100mL Isovue-370. Post-processing of the angiographic images was performed, with multiplanar reformation and 3D reconstruction. Individualized dose optimization techniques were used for this CT. COMPARISON: None. FINDINGS: Normal enhancement of the main pulmonary artery and right and left pulmonary arteries. Normal enhancement of the bilateral peripheral pulmonary arteries. There is no demonstrated pulmonary embolism. Normal thoracic aorta and visualized great vessels. There is no demonstrated aortic dissection. Normal heart and pericardium. There is the stent in the left coronary artery. Normal mediastinum. Normal hilar regions. Normal visualized trachea and bronchi. The lungs are well expanded. There is infiltrate versus atelectatic changes at the right lung base. Minimal atelectatic changes are seen at the left lung base. Normal pleura. Normal chest wall structures. Normal osseous structures. Normal visualized upper abdomen. CT/CTA Chest W/WO Contrast IMPRESSION: 1. No evidence of pulmonary embolus. 2. No aortic dissection or aneurysm. 3. Bibasilar atelectatic changes. The possibility of minimal right basilar infiltrate cannot be completely ruled out. Electronically Signed: Randolph Gray DO at 23:27 EST ,
--- NOTE | 2021-07-04 21:23 | EX.ED.UPPERE ---
HPI History of Present Illness Chief Complaint: Upper Extremity Injury Detail of Chief Complaint: Patient has right scapular and right flank pleuritic chest pain with dyspne Informant: patient and spouse/S.O. Onset/Context/Timing Onset: Today Context: Sudden Onset Timing: Continuous Quality of Pain: Sharp Location: Right scapula and flank Current Severity: Mild Maximum Severity: Moderate Worsened by: Breathing Relieved by: Nothing Associated Symptoms Associated Symptoms: Positive for - (Dyspnea and dyspnea on exertion); Negative for Parasthesia, Weakness and Loss of Funtion Narrative Narrative: Patient is a 60-year-old male who had a significant rise in his PSA and underwent biopsy and prostate surgery on June 23 and diagnosed with prostate cancer. He has an indwelling Jordan. Today he developed abrupt onset of right flank/scapular pain that is pleuritic with dyspnea and dyspnea on exertion. He complains of intermittent cramping pain right calf. He denies swelling or discoloration of his calf. He has no history of VTE. He denies fever, chills night sweats. He denies upper respiratory symptoms. He denies GI symptoms. He states his urine is not bloody. Prior similar symptoms: No Recent Illness/Hospitalization: Yes PFSH PFS Medical History Atherosclerotic heart disease of [place] coronary artery without angina pectoris Cancer Chest pain Essential (primary) hypertension History of heart attack History of stress test Hyperlipidemia Hypertension Palpitations Prostate disease Wears glasses Home Medications atorvastatin 80 mg tablet 80 mg PO QDAY #90 tab 10/11/20 [Rx Last Taken 06/22/21] metoprolol tartrate 25 mg tablet 25 mg PO BID #180 tab 10/11/20 [Rx Last Taken 06/22/21] ramipril 1.25 mg capsule 1.25 mg PO QDAY #90 cap 10/11/20 [Rx Last Taken 06/22/21] clopidogrel 75 mg PO DAILY 07/04/21 [History Last Taken Unknown] doxycycline monohydrate 100 mg PO BID #14 capsule 07/04/21 [Rx Last Taken Unknown] Allergy/AdvReac Type Severity Reaction Status Date / Time No Known Allergies Allergy Verified 06/23/21 06:05 Family History Father Mitral valve regurgitation Congestive heart failure Surgical History History of coronary artery stent placement (10/2006) History of dental surgery History of left heart catheterization (05/21/07) History of right inguinal hernia repair History of vasectomy Hx of prostatectomy Social History (Updated 07/04/21 @ 21:[address] Javon Franco MD) household members: spouse Smoking Status: Former smoker pack-years: 20 substance use type: does not use ROS ROS ED Constitutional Constitutional ED: Denies chills, fever(s), subjective, sweats or weight loss Eyes Eyes: Denies blurry vision, change in vision or diplopia ENT ENT ED: Denies ear pain, rhinorrhea or sore throat Cardiovascular Cardiovascular: Denies chest pain, orthopnea, palpitations, paroxysmal nocturnal dyspnea or racing heartbeat Respiratory/Chest Respiratory/Chest: Reports dyspnea and dyspnea on exertion; Denies cough, orthopnea, paroxysmal nocturnal dyspnea or sputum Gastrointestinal Gastrointestinal: Denies abdominal pain, constipation, diarrhea, nausea or vomiting Genitourinary Genitourinary ED: Reports other Details: Patient has indwelling Jordan since surgery ; Denies dysuria, hematuria or urinary frequency Musculoskeletal Musculoskeletal: Reports back pain; Denies myalgias or neck pain Integumentary Denies abscess, Abrasions or rash Neurologic Neurologic: Denies headache(s), paresthesias or weakness Endocrine Endocrinology: Denies polydipsia, polyphagia or polyuria Hematologic/Lymphatic Hematologic/Lymphatic: Denies easy bleeding or easy bruising EXAM Physical Exam Const Vital Signs: 07/04/21 19:43 Temperature 98.2 F Temperature Source Temporal Pulse Rate 77 Respiratory Rate 20 H Blood Pressure 145/98 H Blood Pressure Mean 113 Pulse Ox 97 Oxygen Delivery Method Room Air Positive well nourished and well developed General Appearance ED: well developed and NAD; Negative for cyanotic or diaphoretic HEENT Reports moist mucous membranes HEENT Narrative: Ears normal. Nares patent. Posterior pharynx out erythema or exudate. normocephalic and atraumatic Eyes PERRL and EOMs intact bilaterally Neck full ROM and supple General: Negative for tenderness Chest Wall inspection of chest normal and palpation of chest normal Resp normal respiratory effort and clear to auscultation bilaterally Effort and Inspection: Negative for pain with movement Cardio regular rate, regular rhythm, S1 normal heart sound, S2 normal heart sound and no murmurs GI non-distended and no masses Auscultation: normoactive bowel sounds Palpation: soft, tender and other Other Details: Expected operative tenderness over port sites Back/Spine no CVA tenderness Cervical Spine: Negative for cervical spine tenderness Thoracic Spine / Upper Back: Negative for thoracic spinal tenderness Extremity normal to inspection and full ROM Extremity Narrative: There is no asymmetry, swelling, discoloration, leg vein distention, palpable cords or tenderness along the distribution of the deep venous system. General Extremety ED: Yes edema General Extremity: edema Neuro oriented x3 and CN's II-XII intact bilaterally Sensorium / Orientation: alert Psych mental status grossly normal Skin Skin Narrative: Surgical/port sites intact without evidence of infection Lesions: no lesions Rashes: no rashes Trauma: no lacerations or abrasions MDM MDM MDM Narrative Medical decision making narrative: With history of recent surgery, diagnosis of cancer and abrupt onset of dyspnea with pleuritic chest pain need to rule out pulmonary embolus. Appropriate blood work was obtained and CTA of the chest was obtained to rule out pulmonary embolus. Per my interpretation of the CAT scan patient has an infiltrate right lower lobe. There is also atelectasis noted on the left. This is the area where he is complaining of pleuritic pain on the right. We will treat with doxycycline for respiratory pathogens. Lab Data Attestation: I reviewed the patient's lab results. Rhythm Strip Rhythm Strip: Sinus Rhythm Rate: 76 Ectopy: None Discharge Plan Triage Chief Complaint: Upper Extremity Injury ED Provider: Javon Franco Dx/Rx/DC Orders Clinical Impression: Community acquired pneumonia of right lower lobe of lung, Pleurisy Instructions: ED Pneumonia (Adult) Prescriptions: New doxycycline monohydrate 100 MG capsule 100 mg PO BID Qty: 14 RF: 0 No Action clopidogrel 75 mg tablet 75 mg PO DAILY RF: 0 metoprolol tartrate 25 mg tablet 25 mg PO BID Qty: 180 RF: 3 ramipril [Altace] 1.25 mg capsule 1.25 mg PO QDAY Qty: 90 RF: 3 atorvastatin 80 mg tablet 80 mg PO QDAY Qty: 90 RF: 3 Primary Care Provider: Shelby Arce Referrals: Shelby Arce DO [Primary Care Provider] - 3-5 Days if not improving Disposition Disposition: Home, Self Care
[2021-07-04 22:01] LABS: Absolute Lymphocyte Count 1.47 X10^3/uL (0.83-4.51); Absolute Neutrophil Count 3.7 X10^3/uL (2.0-7.7); Basophil# 0.03 X10^3/uL; Basophil% 0.5 % (0-1); Eosinophil# 0.15 X10^3/uL; Eosinophils% 2.6 % (0-5); Hematocrit 37.6 % (40-54); Hemoglobin 13.3 g/dL (13.0-16.5); Lymphocyte # 1.47 X10^3/ul (0.83-4.51); Lymphocyte % 25.2 % (19-41); Mean Corp Hgb Conc 35.4 g/dL (32-36); Mean Corpuscular Hgb 32.6 pg (27.0-32.0); Mean Corpuscular Volume 92.2 fL (80-94); Mean Platelet Vol. 9.9 fl (6.2-12.0); Monocyte# 0.42 X10^3/uL; Monocyte% 7.2 % (0-10); NRBC Flagged by Analyzer 0 % (0-5); Neutrophil # 3.73 X10^3/uL (2.7-7.7); Platelet Count 147 K/mm3 (150-450); RBC Distribution Width CV 12.3 % (11.6-14.6); RBC Distribution Width SD 41.7 fl (35.1-43.9); Red Blood Count 4.08 M/mm3 (4.6-6.2); White Blood Count 5.8 K/mm3 (4.4-11.0)
[2021-07-04 22:09] VITALS: BP 167/82; PULSE 63; RESP 17; O2SAT 98
[2021-07-04 22:20] LABS: BNP,B-Type NATRIURETIC PEPTIDE 40.4 pg/mL (0-100)
[2021-07-04 22:22] LABS: Anion Gap 6 (5-15); BUN 25 mg/dL (7-18); BUN/Creat Ratio 18.7 RATIO (10-20); Chloride 104 mmol/L (98-107); Creatinine, Serum 1.34 mg/dL (0.70-1.30); EST Glomerular Filtration Rate 58 mL/min (>60); Est Glom Filt Rate - Afr Amer 70 mL/min (>60); Glucose 105 mg/dL (74-106); Potassium 3.9 mmol/L (3.5-5.1); Sodium Level 138 mmol/L (136-145); Troponin-I HS 11 pg/mL (3.0-78.0)
[2021-07-04 23:47] VITALS: PULSE 66; RESP 16; O2SAT 99
[2021-07-04] MEDS: Doxycycline 100 MG CAPSULE PO (23:56)
== END 2021-07-05 00:48 | disposition home or self-care (01) ==
PROVIDERS: Emergency Provider Emergency Medicine; PCP Internal Medicine; Visit Provider Emergency Medicine
DX: J18.9 Pneumonia, unspecified organism (principal); R09.1 Pleurisy; Z87.891 Personal history of nicotine dependence; I10 Essential (primary) hypertension; E78.5 Hyperlipidemia, unspecified; J98.11 Atelectasis; I25.10 Atherosclerotic heart disease of native coronary artery without angina pectoris
CPT/HCPCS: 71275; 80048; 83880; 84484; 85025; 99284; Q9967; A4216

== ENCOUNTER 2021-07-21 14:48 | Outpatient (CLI) | payer BC, SELFPAY ==
--- NOTE | 2021-07-21 15:01 | VDLE_ITS ---
Reason For Study: RLE calf pain RIGHT LEFT GSV is normal. GSV is normal. CFV is partially compressible with CFV is compressible, spontaneous, phasic, hyperechoic echoes noted in lumen of vessel. competent, and demonstrates normal FV, T/P Trunk, Pop V, PTV & PERV are NON- augmentation. COMPRESSIBLE with hyperechoic echoes noted FV is compressible, spontaneous, phasic, in lumen of vessel. competent and demonstrates normal PFV is normal. augmentation. Procedure POP V is compressible, spontaneous, phasic, This is a venous duplex using B-mode, color competent and demonstrates normal flow and spectral Doppler. augmentation. Exam performed in department. T/P Trunk is compressible. A preliminary report was called and/or faxed PTV is compressible. to Dr. Arce @ 3:50 pm. Awaiting return LT PerV is compressible. call. Unable to reach Dr. Arce. Took PT to ED. VL/Venous Duplex US - Gordon Extrem Interpretation Summary There is no evidence of left lower extremity deep vein thrombosis. Deep venous thrombosis right common femoral, femoral, tibioperoneal trunk, popliteal, posterior tibial and p eroneal veins with hyperechoic thrombus suspicious for a degree of chronicity to some of this dise ase. Patent, compressible bilateral great saphenous veins Ordering Physician: Shelby Arce Referring Physician: Shelby Arce Performed By: Margareth Francis, DEEP, RVT
== END 2021-07-21 23:59 | disposition home or self-care (01) ==
LOC: CVS 14:49
PROVIDERS: PCP Internal Medicine; Visit Provider Internal Medicine
DX: M79.661 Pain in right lower leg (principal)
CPT/HCPCS: 93970

== ENCOUNTER 2021-07-21 16:32 | Emergency (ER) | payer BC, SELFPAY ==
[2021-07-21 16:33] VITALS: BP 129/74; PULSE 65; PULSE 67; RESP 16; TEMP 36.3; O2SAT 99; BMI 23.6
== END 2021-07-21 17:10 | disposition left against medical advice (07) ==
LOC: ED 17:14
PROVIDERS: PCP Internal Medicine
DX: S80.929A Unspecified superficial injury of unspecified lower leg, initial encounter (principal)

== ENCOUNTER → 2021-09-08 | Outpatient (CLI) | payer BC, SELFPAY ==
[2021-09-08 11:15] LABS: PSA,Total- Diagnostic < 0.01 ng/mL (0.0-4.0)
== END | disposition home or self-care (01) ==
LOC: LAB 09:29
PROVIDERS: PCP Internal Medicine; Referring Provider Registered Nurse; Visit Provider Registered Nurse
DX: C61 Malignant neoplasm of prostate (principal)
CPT/HCPCS: 36415; 84153

== ENCOUNTER → 2021-09-12 | Outpatient (CLI) | payer BC, SELFPAY ==
--- NOTE | 2021-09-12 08:00 | ECHOD_ITS ---
Reason For Study: CAD/ASHD Procedure This was a 2D Doppler, Color Flow transthoracic echocardiogram. Exam performed in department. Left Ventricle Normal LV size. Left ventricular systolic function is normal. The estimated ejection fraction is 60 %. Stage 2 diastolic dysfunction. No regional wall motion abnormalities noted. Right Ventricle Normal RV size. Normal systolic function. Atria The left atrium is mildly enlarged. Normal right atrium. Mitral Valve Normal mitral valve. Tricuspid Valve Normal tricuspid valve. Mild tricuspid valve insufficiency. Pulmonary artery systolic pressure is 25 mmHg. Aortic Valve Normal aortic valve. Trisinus/trileaflet aortic valve. Pulmonic Valve Normal pulmonic valve. Great Vessels Normal aortic root. The pulmonary artery is normal size. Normal inferior vena cava. Pericardium/Pleural No pericardial effusion. MMode/2D Measurements & Calculations LVIDd: 4.7 cm IVSd: 1.3 cm LA dimension: 4.0 cm LVIDs: 2.6 cm LVPWd: 1.0 cm FS: 45.5 % LAV(MOD-bp): 74.6 ml LA A4 area: 23.3 cm2 RA A4 area: 18.0 cm2 LAV(MOD-bp) Indexed: 38.0 ml/m2 LAV(MOD-sp2): 71.2 ml LAV(MOD-sp4): 77.9 ml Time Measurements MV dec time: 0.18 sec Doppler Measurements & Calculations MV E max foreign: 75.1 cm/sec Lat Peak E' Foreign: 8.1 cm/sec Med Peak E' Foreign: 7.3 cm/sec MV A max foreign: 58.9 cm/sec E/E' lat: 9.2 E/E' med: 10.3 MV E/A: 1.3 MV V2 max: 77.6 cm/sec MV P1/2t max foreign: 78.2 cm/sec Ao V2 max: 100.8 cm/sec MV max P.4 mmHg MV P1/2t: 59.0 msec Ao max P.1 mmHg MV V2 mean: 36.0 cm/sec MV dec slope: 388.2 cm/sec2 MV mean P.64 mmHg MVA(P1/2t): 3.7 cm2 MV V2 VTI: 24.9 cm LV V1 max: 101.9 cm/sec PA V2 max: 98.2 cm/sec TR max foreign: 231.2 cm/sec LV V1 max P.2 mmHg TR max P.4 mmHg ECHO/Echo Complete Interpretation Summary Normal LV size. Left ventricular systolic function is normal. The estimated ejection fraction is 60 %. Stage 2 diastolic dysfunction. The left atrium is mildly enlarged. Ordering Physician: Tyrone Hi Referring Physician: Shelby Arce M.D. Performed By: Donny Tee RCS
--- NOTE | 2021-09-12 18:33 | STRESSREP ---
Stress Test Report Exercise myocardial perfusion stress test. 61-year-old male with a history of coronary artery disease. Stress protocol: Resting KG demonstrates sinus bradycardia with a rate of 56 bpm. Resting blood pressure is 128/82 mmHg. The patient exercised according to the regular [facility] protocol for a total duration of 10 minutes. Patient completed 1 minute into stage IV of the [facility] protocol. The maximum heart rate attained was 157 bpm which was 97% of max impact at heart rate the maximum workload was 13.4 metabolic equivalents. At rest there were no ST or T wave changes noted to suggest ischemia and at peak exercise upsloping ST changes were noted with did not meet the criteria for ischemia. No clinical angina was noted. The test was terminated due to target heart rate being achieved. The maximum blood pressure was 166/72 mmHg. Myocardial perfusion protocol. 11.1 mCi of technetium 99m sestamibi was injected at rest. The patient exercised according to regular [facility] protocol for total duration of 10 minutes. At peak exercise 36.0 mCi of technetium 99m sestamibi was injected stress images were obtained stress and rest images were reconstructed and compared in the short axis vertical long and horizontal long axis. Gated images were also obtained to Perfusion SPECT analysis: Review of the stress images demonstrate normal uptake of tracer noted in all areas of the myocardium. The resting images similarly demonstrate normal uptake of tracer noted in all areas of the myocardium. No areas of reversibility are noted to suggest ischemia no previous infarct is noted. Gated SPECT analysis: The gated ejection fraction is 65%. Conclusion: Normal exercise myocardial perfusion stress test at a high workload. Preserved ejection fraction.
== END | disposition home or self-care (01) ==
LOC: CVS 07:59
PROVIDERS: PCP Internal Medicine; Referring Provider Internal Medicine Cardiovascular Disease; Visit Provider Internal Medicine Cardiovascular Disease
DX: I25.10 Atherosclerotic heart disease of native coronary artery without angina pectoris (principal); Z95.5 Presence of coronary angioplasty implant and graft
CPT/HCPCS: 78452; 93017; 93306; A9500; A4216

== ENCOUNTER → 2021-12-22 | Outpatient (CLI) | payer BC, SELFPAY ==
[2021-12-22 09:05] LABS: AST(SGOT) 26 U/L (15-37); Alanine Aminotransfer ALT/SGPT 49 U/L (16-61); Albumin, Serum 3.3 g/dL (3.2-5.0); Alkaline Phosphatase 74 U/L (45-117); Bilirubin, Direct 0.16 mg/dL (0.00-0.30); Cholesterol 144 mg/dL (200); Globulin 3.9 g/dL (2.2-4.2); High Density Lipoprotein 52 mg/dL; PSA,Total- Diagnostic < 0.01 ng/mL (0.0-4.0); Protein, Total 7.2 g/dL (6.4-8.2); Triglycerides 121 mg/dL; Very Low Density Lipoprotein 24 mg/dL (5-40)
--- NOTE | 2021-12-22 09:47 | VDLE_ITS ---
Reason For Study: DVT RIGHT LEFT GSV is normal. GSV is normal. CFV is compressible, spontaneous, phasic, CFV is compressible, spontaneous, phasic, competent and demonstrates normal competent, and demonstrates normal augmentation. augmentation. FV is noncompressible with very minimal FV is compressible, spontaneous, phasic, venous flow noted. competent and demonstrates normal POP V is compressible, spontaneous, phasic, augmentation. competent and demonstrates normal POP V is compressible, spontaneous, phasic, augmentation. competent and demonstrates normal T/P Trunk is compressible. augmentation. PTV is compressible. T/P Trunk is compressible. RT PerV is compressible. PTV is compressible. Procedure LT PerV is compressible. This is a venous duplex using B-mode, color flow and spectral Doppler. Exam performed in department. Compared to 07/21/2021. A preliminary report was called and/or faxed to [facility]. VL/Venous Duplex US - [facility] Extrem Interpretation Summary Deep vein thrombosis right femoral vein No evidence for acute deep vein thrombosis left lower extremity Patent and compressible bilateral great saphenous veins. Less disease present from the previous examination of July 21, 2021 Ordering Physician: Shelby Arce Referring Physician: Shelby Arce Performed By: Mary Durand RVT
== END | disposition home or self-care (01) ==
LOC: CVS 09:46
PROVIDERS: Internal Medicine Cardiovascular Disease; PCP Internal Medicine; Referring Provider Internal Medicine; Visit Provider Internal Medicine
DX: I82.411 Acute embolism and thrombosis of right femoral vein (principal); C61 Malignant neoplasm of prostate; E78.00 Pure hypercholesterolemia, unspecified
CPT/HCPCS: 36415; 80061; 80076; 84153; 93970

== ENCOUNTER → 2022-04-16 | Outpatient (CLI) | payer BC, SELFPAY ==
--- NOTE | 2022-04-16 09:39 | VDLE_ITS ---
Reason For Study: DVT RIGHT LEFT GSV is normal. GSV is normal. CFV is compressible, spontaneous, phasic, CFV is compressible, spontaneous, phasic, competent and demonstrates normal competent, and demonstrates normal augmentation. augmentation. FV is partially compressible and non dilated FV is compressible, spontaneous, phasic, with bright intraluminal echoes noted, competent and demonstrates normal minimal venous flow. augmentation. POP V is compressible, spontaneous, phasic, POP V is compressible, spontaneous, phasic, competent and demonstrates normal competent and demonstrates normal augmentation. augmentation. T/P Trunk is compressible. T/P Trunk is compressible. PTV is compressible. PTV is compressible. RT PerV is compressible. LT PerV is compressible. Procedure This is a venous duplex using B-mode, color flow and spectral Doppler. Exam performed in department. Compared to 12/22/2021. A preliminary report was called and/or faxed to [facility]. VL/Venous Duplex US - [facility] Extrem Interpretation Summary Deep venous thrombosis right femoral vein suggesting chronic disease. No evidence for acute deep vein thrombosis left lower extremity Patent and compressible bilateral great saphenous veins Minimal change from the previous examination of December 22, 2021 Ordering Physician: Shelby Arce Referring Physician: Shelby Arce Performed By: Mary Durand RVT
== END | disposition home or self-care (01) ==
LOC: CVS 09:32
PROVIDERS: PCP Internal Medicine; Referring Provider Internal Medicine; Visit Provider Internal Medicine
DX: I82.409 Acute embolism and thrombosis of unspecified deep veins of unspecified lower extremity (principal)
CPT/HCPCS: 93970

== ENCOUNTER → 2022-05-17 | Outpatient (CLI) | payer BC, SELFPAY ==
[2022-05-17 10:43] LABS: PSA,Total - Annual Screen < 0.01 ng/mL (0.00-4.00)
== END | disposition home or self-care (01) ==
LOC: LAB 09:20
PROVIDERS: PCP Internal Medicine; Referring Provider Urology; Visit Provider Urology
DX: C61 Malignant neoplasm of prostate (principal)
CPT/HCPCS: 36415; 84153; G0103

== ENCOUNTER → 2022-08-28 | Outpatient (CLI) | payer BC, SELFPAY ==
[2022-08-28 08:16] LABS: AST(SGOT) 25 U/L (15-37); Alanine Aminotransfer ALT/SGPT 44 U/L (16-61); Albumin, Serum 3.4 g/dL (3.2-5.0); Alkaline Phosphatase 69 U/L (45-117); Bilirubin, Direct 0.13 mg/dL (0.00-0.30); Cholesterol 138 mg/dL (200); Globulin 3.8 g/dL (2.2-4.2); High Density Lipoprotein 45 mg/dL; Protein, Total 7.2 g/dL (6.4-8.2); Triglycerides 95 mg/dL; Very Low Density Lipoprotein 19 mg/dL (5-40)
== END | disposition home or self-care (01) ==
LOC: LAB 07:08
PROVIDERS: PCP Internal Medicine; Referring Provider Internal Medicine Cardiovascular Disease; Visit Provider Internal Medicine Cardiovascular Disease
DX: I25.10 Atherosclerotic heart disease of native coronary artery without angina pectoris (principal); E78.00 Pure hypercholesterolemia, unspecified
CPT/HCPCS: 36415; 80061; 80076

== ENCOUNTER → 2022-11-19 | Outpatient (CLI) | payer BC, SELFPAY ==
[2022-11-19 11:11] LABS: PSA,Total- Diagnostic < 0.01 ng/mL (0.0-4.0)
== END | disposition home or self-care (01) ==
LOC: LAB 08:35
PROVIDERS: PCP Internal Medicine; Referring Provider Urology; Visit Provider Urology
DX: C61 Malignant neoplasm of prostate (principal)
CPT/HCPCS: 36415; 84153

== ENCOUNTER → 2023-05-23 | Outpatient (CLI) | payer BC, SELFPAY ==
--- OUTSIDE RECORDS SUMMARY | 2023-05-23 08:44 | XMS RPT_ITS | CCD ---
Author Name Unknown Address [address] [place] [address] Organization [facility] Care Team Providers Care Afternoon Nanny Name Role Phone Jessica Melendrez RN Unavailable Unavailable Jessica Melendrez RN Unavailable Unavailable Shelby Arce Unavailable Lencho Betancur Unavailable Omari Powell Unavailable Bishnu Maria Unavailable Unavailable Hilaria Guadarrama Unavailable Unavailable Unavailable Shelby Arce DO Unavailable Yaw Castaneda MD Unavailable Dr. Lencho Betancur Unavailable Omari Powell MD Unavailable Saray CONSUMER RELATIONS COMPLAINT CLERK, Juanis Unavailable Unavailable Inna Rider MA Unavailable Unavailable Unavailable Unavailable Slarb CONSUMER RELATIONS COMPLAINT CLERK, Steffany Unavailable Unavailable Shelby Arce DO Unavailable Wilbarger PATCH SANDER, Kayela Unavailable Unavailable Gravius PATCH SANDER, Aparna Unavailable Unavailable Unavailable Unavailable Juan Anthony Unavailable Manmarlo VERA, Maty Unavailable Unavailable Medications Completed/Discontinued Medications Medication Drug Class(es) Dates Sig (Normalized) Sig (Original) amoxicillin 500 mg / clavulanate 125 mg oral tablet (20 sources) Penicillin-class Antibacterial Start: 07-18-2020 End: 07-28-2020 take 1 tablet by mouth twice daily Augmentin 500-125 MG Oral Tablet 1 (one) Tablet bid for 10 days Quantity: 20 {Tablet} Refills: 0 Ordered: 18-Jul-2020 Hilaria Guadarrama Start : 18-Jul-2020 End : 28-Jul-2020 Inactive apixaban 5 mg oral tablet (14 sources) Factor Xa Inhibitor Start: 02-05-2022 take 1 tablet by mouth twice daily Eliquis 5 MG Oral Tablet 1 (one) Tablet bid for 90 days Quantity: 180 {Tablet} Refills: 4 Ordered: 05-Feb-2022 Yazmin DEWITT Shelbyeri Arce DO Shelby Start : 05-Feb-2022 Active Problems Active Problems Problem Classification Problem Date Documented Date Episodic/Chronic Cancer of prostate (20 sources) Malignant tumor of prostate; Translations: [Prostate cancer] 07-06-2021 Chronic Coronary atherosclerosis and other heart disease (20 sources) Atherosclerotic heart disease of [place] coronary artery without angina pectoris; Translations: [Acute ischemic heart disease] Onset: 09-12-2010 Resolved: 07-08-2015 07-08-2015 Chronic Past or Other Problems Problem Classification Problem Date Documented Da te Episodic/Chronic Cardiac dysrhythmias (2 sources) Palpitations; Translations: [Palpitations] Onset: 09-12-2010 09-12-2010 Episodic Coronary atherosclerosis and other heart disease (2 sources) Coronary angioplasty status; Translations: [Coronary angioplasty status] Onset: 09-12-2010 09-12-2010 Episodic Nonspecific chest pain (2 sources) Precordial pain; Translations: [Precordial pain] Onset: 09-12-2010 09-12-2010 Episodic Other aftercare (2 sources) Other terminal make up operator (current) drug therapy; Translations: [Other terminal make up operator (current) drug therapy] Onset: 09-12-2010 09-12-2010 Episodic Other circulatory disease (2 sources) History of myocardial infarction; Translations: [Old myocardial infarction] Onset: 09-12-2010 09-12-2010 Episodic Unclassified (15 sources) Patient encounter status; Translations: [Annual physical exam] 07-18-2020 Unclassified (13 sources) Synovial herniation pit of right femoral neck Unclassified (20 sources) Unclassified (20 sources) Encounter for screening for malignant neoplasm of colon (Renamed from Special screening for malignant neoplasms, colon); Translations: [Screening status] 07-18-2020 Results Test Name Value Interpretation Reference Range Facil ity Vital Signs Date Time Vital Sign Value Performing Clinician Faci lity 04-02-2022 09:02-0500 Body temperature 98.9 [degF] Shelby Yazmin DO Work Phone: [facility] Work Phone: Encounters Encounter Date Encounter Type Care Provider Facility Start: 04-16-2022 End: 04-16-2022 Phone Encounter Shelby Yamzin DO Work Phone: [facility] Start: 03-29-2022 End: 04-02-2022 Office outpatient visit 10 minutes Shelby Yazmin DO Work Phone: [facility] Start: 03-29-2022 Review Shelby Cortezo n DO Work Phone: [facility] Start: 03-29-2022 End: 03-29-2022 Lab Order Shelby Yazmin DO Work Phone: [facility] Start: 12-25-2021 End: 12-25-2021 Phone Encounter Shelby Yazmin DO Work Phone: [facility] Start: 11-15-2021 End: 11-15-2021 Annotation/Addendum Shelby Yazmin DO Work Phone: [facility] Start: 11-14-2021 End: 11-15-2021 Office outpatient visit 5 minutes Shelby Yazmin DO Work Phone: [facility] Start: 11-06-2021 End: 11-06-2021 Lab Order Shelby Yazmin DO Work Phone: [facility] Start: 07-24-2021 End: 07-24-2021 Annotation/Addendum Shelby Yazmin DO Work Phone: [facility] Start: 07-21-2021 End: 07-21-2021 Office outpatient visit 15 minutes Shelby Yazmin DO Work Phone: [facility] Start: 07-06-2021 End: 07-06-2021 Office outpatient visit 15 minutes Shelby Yazmin DO Work Phone: [facility] Start: 07-06-2021 Review Shelby Gasca n DO Work Phone: [facility] Start: 03-24-2021 End: 03-24-2021 Annotation/Addendum Shelby Arce DO Work Phone: [facility] Start: 03-22-2021 End: 03-22-2021 Patient encounter status Shelby Yazmin DO Work Phone: [facility] Work Phone: Start: 03-22-2021 End: 03-22-2021 Periodic preventive med est patient 40-64yrs Shelby Cortezon DO Work Phone: [facility] Start: 07-18-2020 End: 07-18-2020 Office outpatient visit 10 minutes Shelby Arce [facility] Start: 04-17-2019 End: 04-17-2019 Patient encounter status Shelby Yazmin DO Work Phone: [facility] Start: 04-17-2019 End: 04-17-2019 Periodic preventive med est patient 40-64yrs Shelby Arce [facility] Start: 01-12-2016 End: 01-12-2016 Patient encounter procedure Shelby Arce DO Work Phone: [facility] Start: 01-12-2016 End: 01-12-2016 Periodic preventive med est patient 40-64yrs Shelby Arce [facility] Start: 03-25-2015 End: 03-25-2015 Office outpatient visit 15 minutes Shelby Arce [facility] Patient encounter procedure Juanis So LPN [facility] Work Phone: Patient encounter status Shelby Yazmin DO Work Phone: [facility]; [facility] Work Phone: Patient encounter status Shelby Yazmin DO Work Phone: [facility]; [facility] Work Phone: Patient encounter status Shelby Yazmin DO Work Phone: [facility]; [facility] Work Phone: Procedures Date Procedure Procedure Detail Performing Clinician Start: 09-06-2022 End: 09-06-2022 Cardiology Visit Report Procedure Note: See Note; NOTES: [facility] [address] [place] [address] OFFICE VISIT Date of Service: 09/06/22 MR#: [id number] Acct: [id number] Name: DIMPLE LOPEZ Rep #: [id number] : 1960 Provider: Dr. Tyrone Hi MD Age/Sex: 62/M Location: [facility] Status: Signed HPI HPI History of Present Illness Details: DIMPLE LOPEZ, is a 62 M who presents to the office today for a follow-up visit. He is a gentleman with a history of coronary disease status post angioplasty and stenting of the circumflex artery remotely in 2006. He has been doing remarkably well. He was diagnosed with prostate carcinoma and underwent a prostatectomy in June 2021. Postoperatively unfortunately he did develop a right lower extremity deep vein thrombosis and has been started on Eliquis. This has since been discontinued. He denies any chest pain or shortness of breath or paroxysmal nocturnal dyspnea or pedal edema no neck arm or jaw discomfort suggest angina. He has been compliant with all his medications he tells me that his blood pressures have been in the good range it is however noted to be elevated today. His physical exam is unremarkable. Intake Vital Signs 08/01/21 16:10 04/24/22 15:03 09/06/22 08:41 09/06/22 09:23 Height 5 ft 11 in 5 ft 11 in 5 ft 11 in Weight: 188 lb BP 128/77 H Blood Pressure Location Lt brachial Position Sitting Respiration 16 Pulse 58 L Pulse Source Monitor Intake Visit Reasons: 1 Y FU Crochet Beader Required: No Accompanied by: None Is patient in pain?: No Allergies No Known Allergies Allergy (Verified 09/06/22 09:22) Medications apixaban 5 mg tablet 5 mg PO BID 08/01/21 [History Confirmed 09/06/22] aspirin 81 mg tablet,delayed release (Adult Aspirin Regimen) 81 mg PO DAILY 08/02/21 [History Confirmed 09/06/22] atorvastatin 80 mg tablet 80 mg PO QDAY #90 tabs 10/04/21 [Rx Confirmed 09/06/22] clopidogrel 75 mg tablet 75 mg PO DAILY #90 tabs 10/04/21 [Rx Confirmed 09/06/22] metoprolol tartrate 25 mg tablet 25 mg PO BID #180 tabs 10/04/21 [Rx Confirmed 09/06/22] PFSH Medical History Atherosclerotic heart disease of [place] coronary artery without angina pectoris Cancer Chest pain Deep vein thrombophlebitis of right leg (07/21/21) Essential (primary) hypertension History of heart attack History of stress test Hyperlipidemia Hypertension Palpitations Prostate disease Wears glasses Surgical History History of coronary artery stent placement (10/2006) History of dental surgery History of left heart catheterization (05/21/07) History of right inguinal hernia repair History of vasectomy Hx of prostatectomy (06/23/21) Family History Father Mitral valve regurgitation Congestive heart failure Social History household members: spouse Smoking Status: Former smoker pack-years: 20 substance use type: does not use ROS Const Const: Negative for fatigue, weakness, headache(s), frequent falls, difficulty sleeping or excessive sweating Eyes Eyes: Negative for loss of peripheral vision, transient loss of vision, blurry vision, double vision or tunnel vision ENT ENT: Negative for headache(s), dizziness, Nosebleed/epistaxis or balance problems Cardio Chest Pain: No Palpitations: No Edema: None Muscle aches with walking: None Resp Respiratory: Negative for SOB with activity, SOB at rest, SOB orthopnea SOB lying down, Cough or paroxysmal nocturnal dyspnea GI GI: Negative nausea, vomiting or heartburn : Negative for hematuria Musc Musc: Negative for muscle aches/ myalgia, muscle weakness, joint pain or balance problems Skin Skin: Negative non-healing lesions, rash or unusual bruising Neuro Neuro: Negative for dizziness, lightheadedness, near syncope, syncope, orthostatic symptoms, frequent falls, headache(s), weakness, confusion, memory loss, blurry vision, double vision, vertigo or lack of coordination Eusebio Hematologic/Lymphatic: Negative for easy bleeding or easy bruising Endo Endo: Negative for fatigue, excessive sweating, flushing or increased thirst/drinking Psych Psych: Negative for anxiety or depression Allergy Allergy/Immunology: Negative for hives and Negative for rash Cardiology Exam Const Appearance: cooperative, healthy appearing, no acute distress, well developed and well groomed Nutritional Appearance: average body habitus and well nourished Orientation: alert, awake and oriented x3 Head Head: normal to inspection, normocephalic and atraumatic Ears: hearing grossly normal bilaterally and external ears normal Nose: external nose normal, nares normal, nasal mucous membranes and turbinates normal, septum normal and no nasal discharge Face and Sinus: face symmetric Mouth: oral mucosae normal, tongue normal, oropharynx normal and moist mucous membranes Teeth and gingiva: dentition normal Throat: posterior oropharynx normal, tonsils normal and uvula midline Eyes General: appearance normal, both eyes and all related structures Eyelids: eyelids normal Conjunctivae: conjunctivae normal Pupils: PERRL, normal by confrontation and accommodation normal EOM: EOM intact bilaterally Neck Neck: normal visual inspection, trachea midline and no JVD JVD: +5 Carotids: normal carotid upstroke and bounding pulses Chest Chest inspection: normal inspection of the chest, symmetric chest movement and normal respiratory effort Auscultation: Bilateral: Clear to Auscultation Cardio Palpation: normal PMI Rate: regular rate Rhythm: regular rhythm Heart sounds: S1 normal, S2 normal and normal, physiologic split S2; Negative rub, gallop or murmur GI GI: normal to inspection, soft, no hepatosplenomegaly and bowel sounds present Neuro General: patient alert, patient awake, patient oriented x3, gait normal, moves all extremities and no focal sensory deficit Skin Skin: no rashes or lesions noted Extremities Pulses: Normal: Right Femoral Pulse, Left Femoral Pulse, Right Dorsalis Pedis Pulse, Left Dorsalis Pedis Pulse, Right Posterior Tibial Pulse, Left Posterior Tibial Pulse, Right Radial Pulse and Left Radial Pulse Lower Extremity Edema: None: Bilateral Musculoskel Musculoskeletal: No joint tenderness Psych Psychological: normal affect Supplemental Info Supplemental Information Echocardiogram 09/12/2021 Interpretation Summary Normal LV size. Left ventricular systolic function is normal. The estimated ejection fraction is 60 %. Stage 2 diastolic dysfunction. The left atrium is mildly enlarged. ??? Stress test 09/12/2021 Conclusion: Normal exercise myocardial perfusion stress test at a high workload. Preserved ejection fraction. Venous Doppler study 04/16/2022 Interpretation Summary Deep venous thrombosis right femoral vein suggesting chronic disease. No evidence for acute deep vein thrombosis left lower extremity Patent and compressible bilateral great saphenous veins Minimal change from the previous examination of December 22, 2021 Chest CTA 07/04/2021 IMPRESSION: 1.??? No evidence of pulmonary embolus. 2.??? No aortic dissection or aneurysm. 3.??? Bibasilar atelectatic changes.??? The possibility of minimal right basilar infiltrate cannot be completely ruled out. ? Labs: LDL Cholesterol 74 mg/dL (0-130) HDL Cholesterol 45 mg/dL (40-) Cholesterol 138 mg/dL (200) Triglycerides 95 mg/dL (-199) Diagnostics: Echocardiogram Stress Test Stress Test Nuclear Medicine Venous Doppler Study Pulmonary: No Data to Display Past Visits: No Data to Display Assessment and Plan Assessment and Plan (1) History of coronary artery stent placement: Status: Resolved Comment: PCI-ANSHU-LCx 10/2006 Plan: He does have a history of coronary artery disease status post previous angioplasty and stenting. The plan is for him to continue the current medical therapy with aspirin he did undergo a stress test in September 2021 with no evidence of ischemia at a high workload. He does not need to be on the clopidogrel any longer. (2) Essential (primary) hypertension: Status: Chronic Plan: His blood pressure is under excellent control at this time and I would not recommend that we make any changes. (3) Hyperlipidemia: Status: Chronic Qualifiers: Hyperlipidemia type: pure hypercholesterolemia Qualified Code(s): E78.00 - Pure hypercholesterolemia, unspecified; E78.0 - Pure hypercholesterolemia Plan: He does have a history of hyperlipidemia. His most recent lipid profile demonstrated total cholesterol 144, HDL of 52 LDL of 68 Thank you for allowing me to participate in the care of your patient. Please don't hesitate to call if any issues arise. Plan Details Follow Up: 1 Year (r) Coding Level of Care Code Off vis,est,level 3 Diagnoses History of coronary artery stent placement Z95.5 Essential (primary) hypertension I10 Hyperlipidemia E78.00; E78.0 Hyperlipidemia type: pure hypercholesterolemia Coding Level of Care Code Off vis,est,level 3 Diagnoses History of coronary artery stent placement Z95.5 Essential (primary) hypertension I10 Hyperlipidemia E78.00; E78.0 Hyperlipidemia type: pure hypercholesterolemia 09/06/22 0947 <Electronically signed by Tyrone Hi MD> Date Tyrone Hi MD Cosigner Signature: Date (if applicable) CC: Dr. Shelby Arce, DO Shelby Arce DO Work Phone: Start: 04-24-2022 End: 04-24-2022 Oncology Visit Report Procedure Note: See Note; NOTES: [facility] [address] [address] OFFICE VISIT Date of Service: 04/24/22 1455 MR#: [id number] Acct: [id number] Name: DIMPLE LOPEZ Rep #: [id number] : 1960 From: Juan Anthony MD Age/Sex: 61/M Location: [facility] [place] [facility] Status: Signed HPI Subjective Date of Service 04/24/22 Chief Complaint Referred for management of DVT. History of Present Illness 61-year-old man is referred for further management of DVT. He was diagnosed with right leg DVT in July 2021 after prostate surgery in June 2021. He was started on Eliquis and venous Doppler done on 04/16/2022 showed partially compressible femoral vein with minimal venous flow suggestive of chronic disease. He wants to know when he can stop Eliquis. [facility] Medical History Atherosclerotic heart disease of [place] coronary artery without angina pectoris Cancer Chest pain Deep vein thrombophlebitis of right leg (07/21/21) Essential (primary) hypertension History of heart attack History of stress test Hyperlipidemia Hypertension Palpitations Prostate disease Wears glasses Surgical History History of coronary artery stent placement (10/2006) History of dental surgery History of left heart catheterization (05/21/07) History of right inguinal hernia repair History of vasectomy Hx of prostatectomy (06/23/21) Family History Father Mitral valve regurgitation Congestive heart failure Social History household members: spouse Smoking Status: Former smoker pack-years: 20 substance use type: does not use ROS Constitutional Constitutional: Reports systems reviewed and no addt'l complaints, except as documented Eyes Eyes: Reports systems reviewed and no addt'l complaints, except as documented ENT HEENT: Reports systems reviewed and no addt'l complaints, except as documented Cardiovascular Cardiovascular: Reports systems reviewed and no addt'l complaints, except as documented Respiratory/Chest Respiratory/Chest: Reports systems reviewed and no addt'l complaints, except as documented Gastrointestinal Gastrointestinal: Reports systems reviewed and no addt'l complaints, except as documented Genitourinary Genitourinary: Reports systems reviewed and no addt'l complaints, except as documented Musculoskeletal Musculoskeletal: Reports systems reviewed and no addt'l complaints, except as documented Integumentary Integumentary: Reports systems reviewed and no addt'l complaints, except as documented Neurologic Neurologic: Reports systems reviewed and no addt'l complaints, except as documented Psychiatric Psychiatric: Reports systems reviewed and no addt'l complaints, except as documented Endocrine Endocrinology: Reports systems reviewed and no addt'l complaints, except as documented Hematologic/Lymphatic Hematologic/Lymphatic: Reports systems reviewed and no addt'l complaints, except as documented Allergic/Immunologic Allergic/Immunologic: Reports systems reviewed and no addt'l complaints, except as documented Intake Vital Signs 04/24/22 14:55 04/24/22 15:03 Height 5 ft 11 in 5 ft 11 in Weight: 84.595 kg BMI 25.9 BP 155/80 H Blood Pressure Location Rt brachial Position Sitting Respiration 16 Pulse 63 Pulse Source Monitor Temp 98.3 F Temperature Source Temporal Artery Pulse Oximetry (%) 98 Oxygen Delivery Method room air Intake Crochet Beader Required: No Accompanied by: Self Is patient in pain?: No Allergies No Known Allergies Allergy (Verified 12/13/22 14:59) Medications apixaban 5 mg tablet 5 mg PO BID 08/01/21 [History Confirmed 04/19/22] ramipril 2.5 mg capsule 2.5 mg PO QDAY #90 caps 08/01/21 [Rx Confirmed 04/19/22] aspirin 81 mg tablet,delayed release (Adult Aspirin Regimen) 81 mg PO DAILY 08/02/21 [History Confirmed 04/19/22] atorvastatin 80 mg tablet 80 mg PO QDAY #90 tabs 10/04/21 [Rx Confirmed 04/19/22] clopidogrel 75 mg tablet 75 mg PO DAILY #90 tabs 10/04/21 [Rx Confirmed 04/19/22] metoprolol tartrate 25 mg tablet 25 mg PO BID #180 tabs 10/04/21 [Rx Confirmed 04/19/22] Central Venous Access Central Venous Access: No Exam Physical Exam Const alert, oriented x3 and no apparent distress HEENT normocephalic and external nose normal Eyes PERRL and no scleral icterus Neck full ROM and supple Lymph Lymphatic: no lymphadenopathy noted Chest inspection of chest normal Resp normal respiratory effort, no use of accessory muscles and clear to auscultation bilaterally Cardio regular rate, regular rhythm, S1 normal heart sound, S2 normal heart sound and no murmurs GI normal to inspection, nondistended, normoactive bowel sounds no CVA tenderness Back/Spine no CVA tenderness and thoracic and lumbar spine normal to inspection Skin no rashes or lesions noted Neuro oriented x3, CN's II-XII intact bilaterally and moves all extremities Psych mental status grossly normal Coding Level of Care Code Off vis,new,level 3 Exam Problem Focused Diagnoses DVT of deep femoral vein I82.411 Laterality: right Assessment and Plan Assessment and Plan (1) 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 Doppler on 04/16/2022 showed partial compressibility of R FV suggestive of chronic DVT. He wants to know if he can stop the Eliquis. Plan: To check D-dimers, if it is normal he can stop Eliquis otherwise he will need to continue Eliquis till D-dimers are normal. RTC 3 months Orders: Orders Partial Thromboplast Time Today I80.201 - Phlebitis and thrombophlebitis of unspecified deep vessels of right lower extremity, Z79.01 - remote computer terminal operator (current) use of anticoagulants D-Dimer Quantitative (DVT/PE) Today I80.201 - Phlebitis and thrombophlebitis of unspecified deep vessels of right lower extremity, Z79.01 - remote computer terminal operator (current) use of anticoagulants Prothrombin Time w/INR Today I80.201 - Phlebitis and thrombophlebitis of unspecified deep vessels of right lower extremity, Z79.01 - remote computer terminal operator (current) use of anticoagulants CBC W/Diff, Automated Today I80.201 - Phlebitis and thrombophlebitis of unspecified deep vessels of right lower extremity, Z79.01 - prison (current) use of anticoagulants Plan Details Follow Up: 3 Months 04/24/22 6991 <Electronically signed by Juan Anthony MD> Date Juan Anthony MD Cosigner Signature: Date (if applicable) CC: DO Shelby Saez DO Work Phone: Start: 04-16-2022 End: 04-16-2022 Venous Duplex US - Gordon Extrem Procedure Note: See Note; NOTES: [facility] [address] [place] [address] Venous Duplex US - Gordon Extrem 04/16/22 0949 MR#: [id number] Acct: [id number] Name: DIMPLE LOPEZ Rep #: [id number] : 1960 61 From: Kris Leblanc MD Attending Dr: Dr. Shelby Arce DO Status: R EG CLI Ordering Dr: Shelby Arce DO Date: 04/16/22 Location: [facility] Sex: M C Admitted: Reason For Study: DVT RIGHT LEFT GSV is normal. GSV is normal. CFV is compressible, spontaneous, phasic, CFV is compressible, spontaneous, phasic, competent and demonstrates normal competent, and demonstrates normal augmentation. augmentation. FV is partially compressible and non dilated FV is compressible, spontaneous, phasic, with bright intraluminal echoes noted, competent and demonstrates normal minimal venous flow. augmentation. POP V is compressible, spontaneous, phasic, POP V is compressible, spontaneous, phasic, competent and demonstrates normal competent and demonstrates normal augmentation. augmentation. T/P Trunk is compressible. T/P Trunk is compressible. PTV is compressible. PTV is compressible. RT PerV is compressible. LT PerV is compressible. Procedure This is a venous duplex using B-mode, color flow and spectral Doppler. Exam performed in department. Compared to 12/22/2021. A preliminary report was called and/or faxed to [facility]. VL/Venous Duplex US - [facility] Extrem Interpretation Summary Deep venous thrombosis right femoral vein suggesting chronic disease. No evidence for acute deep vein thrombosis left lower extremity Patent and compressible bilateral great saphenous veins Minimal change from the previous examination of December 22, 2021 Ordering Physician: Shelby Arce Referring Physician: Shelby Arce Performed By: Mary Durand RVT 04/16/221131 Date Kris Leblanc MD CC: Dr. Shelby Arce DO Date Dictated: 04/16/22 0949 Date Transcribed: 04/16/221131 Link Fabric Machine Operator: Clarke Arce DO Work Phone: Start: 12-22-2021 End: 08-12-2022 Venous Duplex US - Gordon Extrem Comments: See Note; NOTES: [facility] [address] [place] [address] Venous Duplex US - Gordon Extrem 12/22/21 0956 MR#: [id number] Acct: [id number] Name: DIMPLE LOPEZ Rep #: [id number] : 1960 61 From: Kris Leblanc MD Attending Dr: Dr. Shelby Arce, Status: R EG I Ordering Dr: Shelby Arce DO Date: 12/22/21 Location: [facility] Sex: M C Admitted: Reason For Study: DVT RIGHT LEFT GSV is normal. GSV is normal. CFV is compressible, spontaneous, phasic, CFV is compressible, spontaneous, phasic, competent and demonstrates normal competent, and demonstrates normal augmentation. augmentation. FV is noncompressible with very minimal FV is compressible, spontaneous, phasic, venous flow noted. competent and demonstrates normal POP V is compressible, spontaneous, phasic, augmentation. competent and demonstrates normal POP V is compressible, spontaneous, phasic, augmentation. competent and demonstrates normal T/P Trunk is compressible. augmentation. PTV is compressible. T/P Trunk is compressible. RT PerV is compressible. PTV is compressible. Procedure LT PerV is compressible. This is a venous duplex using B-mode, color flow and spectral Doppler. Exam performed in department. Compared to 07/21/2021. A preliminary report was called and/or faxed to [facility]. VL/Venous Duplex US - Gordon Extrem Interpretation Summary Deep vein thrombosis right femoral vein No evidence for acute deep vein thrombosis left lower extremity Patent and compressible bilateral great saphenous veins. Less disease present from the previous examination of July 21, 2021 _ Ordering Physician: Shelby Arce Referring Physician: Shelby Arce Performed By: Mary Durand RVT 12/22/21 1320 Date Kris Leblanc MD CC: Dr. Shelby Arce, Date Dictated: 12/22/21955 Date Transcribed: 12/22/21 132 Link Fabric Machine Operator: Clarke Arce DO Work Phone: Start: 10-31-2021 End: 10-31-2021 Urgent Care Visit Report Comments: See Note; NOTES: [facility] [address] [place] [address] OFFICE VISIT Date of Service: 10/31/21 MR#: [id number] Acct: [id number] Name: DIMPLE LOPEZ Rep #: [id number] : 1960 Provider: APRIL Salmon Age/Sex: 61/M Location: [facility] Status: Signed Intake Vital Signs 10/31/21 14:54 10/31/21 15:18 Height 5 ft 11 in 5 ft 11 in Weight: 175 lb BMI 24.4 BP 128/66 H Blood Pressure Location Lt brachial Position Sitting Respiration 16 Pulse 83 Pulse Source Monitor Temp 99.1 F Temp Source Temporal Pulse Oximetry (%) 97 Oxygen Delivery Method room air Intake Visit Reasons: PCR COVID TEST/FEVER/BODY ACHES Allergies No Known Allergies Allergy (Verified 10/31/21 15:09) Medications apixaban 5 mg tablet 5 mg PO BID 08/01/21 [History Confirmed 10/31/21] ramipril 2.5 mg capsule 2.5 mg PO QDAY #90 caps 08/01/21 [Rx Confirmed 10/31/21] aspirin 81 mg tablet,delayed release (Adult Aspirin Regimen) 81 mg PO DAILY 08/02/21 [History Confirmed 10/31/21] atorvastatin 80 mg tablet 80 mg PO QDAY #90 tabs 10/04/21 [Rx Confirmed 10/31/21] clopidogrel 75 mg tablet 75 mg PO DAILY #90 tabs 10/04/21 [Rx Confirmed 10/31/21] metoprolol tartrate 25 mg tablet 25 mg PO BID #180 tabs 10/04/21 [Rx Confirmed 10/31/21] [facility] Medical History Atherosclerotic heart disease of [place] coronary artery without angina pectoris Cancer Chest pain Deep vein thrombophlebitis of right leg (07/21/21) Essential (primary) hypertension History of heart attack History of stress test Hyperlipidemia Hypertension Palpitations Prostate disease Wears glasses Surgical History History of coronary artery stent placement (10/2006) History of dental surgery History of left heart catheterization (05/21/07) History of right inguinal hernia repair History of vasectomy Hx of prostatectomy (06/23/21) Family History Father Mitral valve regurgitation Congestive heart failure Social History household members: spouse Smoking Status: Former smoker pack-years: 20 substance use type: does not use HPI HPI Details: DIMPLE LOPEZ, is a 61 M who presents to the office today for complaint of body aches and low- grade fever . Patient reports a T-max of 100???F which did come down with Tylenol. He states that he has had body aches and nasal congestion for the past 2 to 3 days. He states being concerned for COVID and is requesting a COVID test at this time. He does state that his body aches improved last night and this morning however have not completely resolved. No nausea, vomiting or diarrhea. No cough, shortness of breath or difficulty breathing. No loss of taste or smell. No other associated symptoms or alleviating/aggravating factors. ROS Const Constitutional: No other (6 system ROS completed with pertinent findings in the HPI otherwise normal.) Exam Const General: cooperative and well developed [facility] Head: normal to inspection and atraumatic Ears: hearing grossly normal bilaterally Nose: nasal discharge clear Face and sinus: normal facial exam Mouth: oral mucosae normal Throat: abnormal tonsil bilaterally hypertrophy 1+ Resp Effort Inspection: normal respiratory effort and no audible wheezes Auscultation: Bilateral: Clear to Auscultation Cardio Palpation: normal PMI Rate: regular rate Rhythm: regular rhythm Neuro General: patient alert and CN's II-XI intact bilaterally Psych Appearance: grossly normal Mental Status: mental status grossly normal Results POC YUMIKO Covid FluAB PCR POC Yumiko Covid PCR Not Detected Last Edit by Sally Gutiérrez RN on 10/31/21 15:36 POC YUMIKO FLU NOT DETECTED FLU A B Last Edit by Sally Gutiérrez RN on 10/31/21 15:36 Coding Level of Care Code Off vis,new,level 3 Diagnoses Acute upper respiratory infection J06.9 Encounter for screening for other viral diseases Z11.59 Assessment and Plan Assessment and Plan (1) Acute upper respiratory infection: Status: Acute (2) Encounter for screening for other viral diseases: Status: Acute Plan: Patient tested negative for COVID in the office today. Encouraged to get plenty of rest, drink lots of clear liquids, and use Tylenol or Ibuprofen (unless contraindicated) for fever and comfort. Patient also educated on other symptomatic management techniques. To be seen in 7-10 days if no improvement; sooner if worsening of symptoms. Patient verbalized understanding and agreement with all the above. Orders: Orders POC Yumiko Covid FLUAB PCR Today 10/31/21 1604 <Electronically signed by Tony CHEN> Date Tony CHEN Cosigner Signature: Date (if applicable) CC: Shelby Arce DO Work Phone: Start: 09-12-2021 End: 09-12-2021 Stress Report Comments: See Note; NOTES: [facility] [address] [place] [address] MR#: [id number] Acct: [id number] Name: DIMPLE LOPEZ Rep #: [id number] : 1960 61 From: Tyrone Hi MD Primary Care: Dr. Shelby Arce DO Status: REG CLI Referring Dr: Tyrone Hi MD Sex: M C Stress Test Report Exercise myocardial perfusion stress test. 61-year-old male with a history of coronary artery disease. Stress protocol: Resting KG demonstrates sinus bradycardia with a rate of 56 bpm. Resting blood pressure is 128/82 mmHg. The patient exercised according to the regular [facility] protocol for a total duration of 10 minutes. Patient completed 1 minute into stage IV of the [facility] protocol. The maximum heart rate attained was 157 bpm which was 97% of max impact at heart rate the maximum workload was 13.4 metabolic equivalents. At rest there were no ST or T wave changes noted to suggest ischemia and at peak exercise upsloping ST changes were noted with did not meet the criteria for ischemia. No clinical angina was noted. The test was terminated due to target heart rate being achieved. The maximum blood pressure was 166/72 mmHg. Myocardial perfusion protocol. 11.1 mCi of technetium 99m sestamibi was injected at rest. The patient exercised according to regular [facility] protocol for total duration of 10 minutes. At peak exercise 36.0 mCi of technetium 99m sestamibi was injected stress images were obtained stress and rest images were reconstructed and compared in the short axis vertical long and horizontal long axis. Gated images were also obtained to Perfusion SPECT analysis: Review of the stress images demonstrate normal uptake of tracer noted in all areas of the myocardium. The resting images similarly demonstrate normal uptake of tracer noted in all areas of the myocardium. No areas of reversibility are noted to suggest ischemia no previous infarct is noted. Gated SPECT analysis: The gated ejection fraction is 65%. Conclusion: Normal exercise myocardial perfusion stress test at a high workload. Preserved ejection fraction. 09/12/211838 <Electronically signed by Tyrone Hi MD> Date Tyrone Hi MD CC: Dr. Tyrone Hi MD; Dr. Shelby Arce DO Date Dictated: 09/12/211832 Date Transcribed: 09/12/211832 Link Fabric Machine Operator: [place] Signed Shelby Arce DO Work Phone: Start: 09-12-2021 End: 09-12-2021 Echo Complete Comments: See Note; NOTES: [facility] [address] [place] [address] Echo Complete 09/12/21811 MR#: [id number] Acct: [id number] Name: DIMPLE LOPEZ Rep #: [id number] : 1960 61 From: Tyrone Hi MD Attending Dr: Dr. Tyrone Hi MD Status: REG Reed DILLON Ordering Dr: Tyrone Hi MD Date: 09/12/21 Location: [facility] Sex: M C Admitted: Reason For Study: CAD/ASHD Procedure This was a 2D Doppler, Color Flow transthoracic echocardiogram. Exam performed in department. Left Ventricle Normal LV size. Left ventricular systolic function is normal. The estimated ejection fraction is 60 %. Stage 2 diastolic dysfunction. No regional wall motion abnormalities noted. Right Ventricle Normal RV size. Normal systolic function. Atria The left atrium is mildly enlarged. Normal right atrium. Mitral Valve Normal mitral valve. Tricuspid Valve Normal tricuspid valve. Mild tricuspid valve insufficiency. Pulmonary artery systolic pressure is 25 mmHg. Aortic Valve Normal aortic valve. Trisinus/trileaflet aortic valve. Pulmonic Valve Normal pulmonic valve. Great Vessels Normal aortic root. The pulmonary artery is normal size. Normal inferior vena cava. Pericardium/Pleural No pericardial effusion. MMode/2D Measurements Calculations LVIDd: 4.7 cm IVSd: 1.3 cm LA dimension: 4.0 cm LVIDs: 2.6 cm LVPWd: 1.0 cm FS: 45.5 % LAV(MOD-bp): 74.6 ml LA A4 area: 23.3 cm2 RA A4 area: 18.0 cm2 LAV(MOD-bp) Indexed: 38.0 ml/m2 LAV(MOD-sp2): 71.2 ml LAV(MOD-sp4): 77.9 ml Time Measurements MV dec time: 0.18 sec Doppler Measurements Calculations MV E max foreign: 75.1 cm/sec Lat Peak E' Foreign: 8.1 cm/sec Med Peak E' Foreign: 7.3 cm/sec MV A max foreign: 58.9 cm/sec E/E' lat: 9.2 E/E' med: 10.3 MV E/A: 1.3 MV V2 max: 77.6 cm/sec MV P1/2t max foreign: 78.2 cm/sec Ao V2 max: 100.8 cm/sec MV max P.4 mmHg MV P1/2t: 59.0 msec Ao max P.1 mmHg MV V2 mean: 36.0 cm/sec MV dec slope: 388.2 cm/sec2 MV mean P.64 mmHg MVA(P1/2t): 3.7 cm2 MV V2 VTI: 24.9 cm LV V1 max: 101.9 cm/sec PA V2 max: 98.2 cm/sec TR max foreign: 231.2 cm/sec LV V1 max P.2 mmHg TR max P.4 mmHg ECHO/Echo Complete Interpretation Summary Normal LV size. Left ventricular systolic function is normal. The estimated ejection fraction is 60 %. Stage 2 diastolic dysfunction. The left atrium is mildly enlarged. _ Ordering Physician: Tyrone Hi Referring Physician: Shelby Arce M.D. Performed By: Donny Tee RCS 09/12/21951 Date Tyrone Hi MD CC: Dr. Tyrone Hi MD; Dr. Shelby Arce DO Date Dictated: 09/12/21811 Date Transcribed: 09/12/21951 Link Fabric Machine Operator: Signed Shelby Arce DO Work Phone: Start: 08-01-2021 End: 09-01-2021 Cardiology Visit Report Comments: See Note; NOTES: [facility] [address] [place], [place] [address] OFFICE VISIT Date of Service: 08/01/21 MR#: [id number] Acct: [id number] Name: DIMPLE LOPEZ Rep #: [id number] : 1960 Provider: Dr. Tyrone Hi MD Age/Sex: 60/M Location: [facility] Status: Signed [facility] History of Present Illness Details: DIMPLE LOPEZ, is a 60 M who presents to the office today for a follow-up visit. He is a gentleman with a history of coronary disease status post angioplasty and stenting of the circumflex artery remotely in 2006. He has been doing remarkably well. He was diagnosed with prostate carcinoma and underwent a prostatectomy in June 2021. Postoperatively unfortunately he did develop a right lower extremity deep vein thrombosis and has been started on Eliquis. He denies any chest pain or shortness of breath or paroxysmal nocturnal dyspnea or pedal edema no neck arm or jaw discomfort suggest angina. He has been compliant with all his medications he tells me that his blood pressures have been in the good range it is however noted to be elevated today. His physical exam is unremarkable. Intake Vital Signs 08/01/21 16:10 08/01/21 16:21 Height 5 ft 11 in Weight: 168 lb BMI 23.4 BP 156/73 H 157/75 H Respiration 16 Pulse 52 L Pulse Oximetry (%) 100 Intake Visit Reasons: 1 Y FU Allergies No Known Allergies Allergy (Verified 06/23/21 06:05) Medications atorvastatin 80 mg tablet 80 mg PO QDAY #90 tab 10/11/20 [Rx Confirmed 08/01/21] metoprolol tartrate 25 mg tablet 25 mg PO BID #180 tab 10/11/20 [Rx Confirmed 08/01/21] clopidogrel 75 mg PO DAILY 07/04/21 [History Confirmed 08/01/21] apixaban 5 mg tablet 5 mg PO BID tab 08/01/21 [History Confirmed 08/01/21] ramipril 2.5 mg capsule 2.5 mg PO QDAY #90 cap 08/01/21 [Rx Confirmed 08/01/21] [facility] Medical History Atherosclerotic heart disease of [place] coronary artery without angina pectoris Cancer Chest pain Deep vein thrombophlebitis of right leg (07/21/21) Essential (primary) hypertension History of heart attack History of stress test Hyperlipidemia Hypertension Palpitations Prostate disease Wears glasses Surgical History History of coronary artery stent placement (10/2006) History of dental surgery History of left heart catheterization (05/21/07) History of right inguinal hernia repair History of vasectomy Hx of prostatectomy (06/23/21) Family History Father Mitral valve regurgitation Congestive heart failure Social History household members: spouse Smoking Status: Former smoker pack-years: 20 substance use type: does not use ROS Const Const: Negative for fatigue, weakness, headache(s), frequent falls, difficulty sleeping or excessive sweating Eyes Eyes: Negative for loss of peripheral vision, transient loss of vision, blurry vision, double vision or tunnel vision ENT ENT: Negative for headache(s), dizziness, Nosebleed/epistaxis or balance problems Cardio Chest Pain: No Palpitations: No Edema: None Muscle aches with walking: None Resp Respiratory: Negative for SOB with activity, SOB at rest, SOB orthopnea SOB lying down, Cough or paroxysmal nocturnal dyspnea GI GI: Negative nausea, vomiting, heartburn or black,tarry stools : Negative for hematuria Musc Musc: Negative for muscle aches/ myalgia, muscle weakness, joint pain or balance problems Skin Skin: Negative non-healing lesions, rash or unusual bruising Neuro Neuro: Negative for dizziness, lightheadedness, near syncope, syncope, orthostatic symptoms, frequent falls, headache(s), weakness, blurry vision, double vision or lack of coordination Eusebio Hematologic/Lymphatic: Negative for easy bleeding or easy bruising Endo Endo: Negative for fatigue, excessive sweating or increased thirst/drinking Psych Psych: Negative for anxiety or depression Allergy Allergy/Immunology: Negative for hives and Negative for rash Cardiology Exam Const Appearance: cooperative, healthy appearing, no acute distress, well developed and well groomed Nutritional Appearance: average body habitus and well nourished Orientation: alert, awake and oriented x3 Head Head: normal to inspection, normocephalic and atraumatic Ears: hearing grossly normal bilaterally and external ears normal Nose: external nose normal, nares normal, nasal mucous membranes and turbinates normal, septum normal and no nasal discharge Face and Sinus: face symmetric Mouth: oral mucosae normal, tongue normal, oropharynx normal and moist mucous membranes Teeth and gingiva: dentition normal Throat: posterior oropharynx normal, tonsils normal and uvula midline Eyes General: appearance normal, both eyes and all related structures Eyelids: eyelids normal Conjunctivae: conjunctivae normal Pupils: PERRL, normal by confrontation and accommodation normal EOM: EOM intact bilaterally Neck Neck: normal visual inspection, trachea midline and no JVD JVD: +5 Carotids: normal carotid upstroke and bounding pulses Chest Chest inspection: normal inspection of the chest, symmetric chest movement and normal respiratory effort Auscultation: Bilateral: Clear to Auscultation Cardio Palpation: normal PMI Rate: regular rate Rhythm: regular rhythm Heart sounds: S1 normal, S2 normal and normal, physiologic split S2; Negative rub, gallop or murmur GI GI: normal to inspection, soft, no hepatosplenomegaly and bowel sounds present Neuro General: patient alert, patient awake, patient oriented x3, gait normal, moves all extremities and no focal sensory deficit Skin Skin: no rashes or lesions noted Extremities Pulses: Normal: Right Femoral Pulse, Left Femoral Pulse, Right Dorsalis Pedis Pulse, Left Dorsalis Pedis Pulse, Right Posterior Tibial Pulse, Left Posterior Tibial Pulse, Right Radial Pulse and Left Radial Pulse Lower Extremity Edema: None: Bilateral Musculoskel Musculoskeletal: No joint tenderness Psych Psychological: normal affect Supplemental Info Supplemental Information Labs: LDL Cholesterol 58 mg/dL (0-130) HDL Cholesterol 49 mg/dL (40-) Triglycerides 116 mg/dL (-199) VLDL Cholesterol 23 mg/dL (5-40) Diagnostics: Electrocardiogram Venous Doppler Study Pulmonary: No Data to Display Assessment and Plan Assessment and Plan (1) History of coronary artery stent placement: Status: Resolved Comment: PCI-ANSHU-LCx 10/2006 Orders: Orders: Echo Complete Today Nuclear Stress Test - Treadmil Today Plan - Dr. Tyrone Hi MD: He does have a history of coronary artery disease status post angioplasty and stenting. He continues to do well however it has been over 3 years since his last stress test and may be prudent to reevaluate the above with myocardial perfusion stress test depending on the findings further recommendations will be made. In the meantime he will continue with his current medical therapy. 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 (2) Essential (primary) hypertension: Status: Chronic Plan - Dr. Tyrone Hi MD: His blood pressure appears to be fair and I would recommend that we increase his ramipril to 2.5 mg once a day. He will continue to monitor this. (3) Hyperlipidemia: Status: Chronic Qualifiers: Hyperlipidemia type: pure hypercholesterolemia Qualified Code(s): E78.00 - Pure hypercholesterolemia, unspecified; E78.0 - Pure hypercholesterolemia Plan - Dr. Tyrone Hi MD: He does have a history of hyperlipidemia with his most recent lipid profile demonstrating a total cholesterol 130, LDL 58 and HDL of 49. No other changes will be made. Plan Details Other Medications: Changed: From: ramipril (Altace) 1.25 mg PO QDAY 90 caps 3RF To: ramipril 2.5 mg PO QDAY 90 caps 3RF Additional Comments: Portions of this documentation were copied and pasted from previous office visit notes to provide a cohesive continuity of the history. The note has been reviewed, edited, and updated, as necessary. 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) Coding Level of Care Code Off vis,est,level 3 Diagnoses History of coronary artery stent placement Z95.5 Essential (primary) hypertension I10 Hyperlipidemia E78.00; E78.0 Hyperlipidemia type: pure hypercholesterolemia Coding Level of Care Code Off vis,est,level 3 Diagnoses History of coronary artery stent placement Z95.5 Essential (primary) hypertension I10 Hyperlipidemia E78.00; E78.0 Hyperlipidemia type: pure hypercholesterolemia 08/01/21 1636 <Electronically signed by Tyrone Hi MD> Date Tyrone Hi MD Cosigner Signature: Date (if applicable) CC: DO Shelby Saez DO Work Phone: Start: 07-21-2021 End: 07-21-2021 Venous Duplex US - Gordon Extrem Comments: See Note; NOTES: [facility] [address] [place] [address] Venous Duplex US - Gordon Extrem 07/21/21 1512 MR#: [id number] Acct: [id number] Name: DIMPLE LOPEZ Rep #: [id number] : 1960 60 From: Kris Leblanc MD Attending Dr: Dr. Shelby Arce DO Status: R EG CLI Ordering Dr: Shelby Arce DO Date: 07/21/21 Location: [facility] Sex: M C Admitted: Reason For Study: RLE calf pain RIGHT LEFT GSV is normal. GSV is normal. CFV is partially compressible with CFV is compressible, spontaneous, phasic, hyperechoic echoes noted in lumen of vessel. competent, and demonstrates normal FV, T/P Trunk, Pop V, PTV PERV are NON- augmentation. COMPRESSIBLE with hyperechoic echoes noted FV is compressible, spontaneous, phasic, in lumen of vessel. competent and demonstrates normal PFV is normal. augmentation. Procedure POP V is compressible, spontaneous, phasic, This is a venous duplex using B-mode, color competent and demonstrates normal flow and spectral Doppler. augmentation. Exam performed in department. T/P Trunk is compressible. A preliminary report was called and/or faxed PTV is compressible. to Dr. Arce @ 3:50 pm. Awaiting return LT PerV is compressible. call. Unable to reach Dr. Arce. Took PT to ED. VL/Venous Duplex US - Gordon Extrem Interpretation Summary There is no evidence of left lower extremity deep vein thrombosis. Deep venous thrombosis right common femoral, femoral, tibioperoneal trunk, popliteal, posterior tibial and peroneal veins with hyperechoic thrombus suspicious for a degree of chronicity to some of this disease. Patent, compressible bilateral great saphenous veins _ Ordering Physician: Shelby Arce Referring Physician: Shelby Arce Performed By: Margareth Francis, RDCS, RVT 07/21/21 7199 Date Kris Leblanc MD CC: Dr. Shelby Arce DO Date Dictated: 07/21/21 1512 Date Transcribed: 07/21/21 4666 Link Fabric Machine Operator: Signed Shelby Arce DO Work Phone: Start: 07-04-2021 End: 07-04-2021 Emergency Department Summary Comments: See Note; NOTES: [facility] [address] [place] [address] Emergency Department Summary 07/04/21 MR#: [id number] Acct: [id number] Name: DIMPLE LOPEZ Rep #: [id number] : 1960 60 From: Javon Franco MD PCP: Dr. Shelby Arce, DO Status:REG ER Location: ED HPI History of Present Illness Chief Complaint: Upper Extremity Injury Detail of Chief Complaint: Patient has right scapular and right flank pleuritic chest pain with dyspne Informant: patient and spouse/S.O. Onset/Context/Timing Onset: Today Context: Sudden Onset Timing: Continuous Quality of Pain: Sharp Location: Right scapula and flank Current Severity: Mild Maximum Severity: Moderate Worsened by: Breathing Relieved by: Nothing Associated Symptoms Associated Symptoms: Positive for - (Dyspnea and dyspnea on exertion); Negative for Parasthesia, Weakness and Loss of Funtion Narrative Narrative: Patient is a 60-year-old male who had a significant rise in his PSA and underwent biopsy and prostate surgery on June 23 and diagnosed with prostate cancer. He has an indwelling Jordan. Today he developed abrupt onset of right flank/scapular pain that is pleuritic with dyspnea and dyspnea on exertion. He complains of intermittent cramping pain right calf. He denies swelling or discoloration of his calf. He has no history of VTE. He denies fever, chills night sweats. He denies upper respiratory symptoms. He denies GI symptoms. He states his urine is not bloody. Prior similar symptoms: No Recent Illness/Hospitalization: Yes [facility] Medical History Atherosclerotic heart disease of cap[place] grande coronary artery without angina pectoris Cancer Chest pain Essential (primary) hypertension History of heart attack History of stress test Hyperlipidemia Hypertension Palpitations Prostate disease Wears glasses Home Medications atorvastatin 80 mg tablet 80 mg PO QDAY #90 tab 10/11/20 [Rx Last Taken 06/22/21] metoprolol tartrate 25 mg tablet 25 mg PO BID #180 tab 10/11/20 [Rx Last Taken 06/22/21] ramipril 1.25 mg capsule 1.25 mg PO QDAY #90 cap 10/11/20 [Rx Last Taken 06/22/21] clopidogrel 75 mg PO DAILY 07/04/21 [History Last Taken Unknown] doxycycline monohydrate 100 mg PO BID #14 capsule 07/04/21 [Rx Last Taken Unknown] Allergy/AdvReac Type Severity Reaction Status Date / Time No Known Allergies Allergy Verified 06/23/21 06:05 Family History Father Mitral valve regurgitation Congestive heart failure Surgical History History of coronary artery stent placement (10/2006) History of dental surgery History of left heart catheterization (05/21/07) History of right inguinal hernia repair History of vasectomy Hx of prostatectomy Social History (Updated 07/04/21 @ 21:[address] Javon Franco MD) household members: spouse Smoking Status: Former smoker pack-years: 20 substance use type: does not use ROS ROS ED Constitutional Constitutional ED: Denies chills, fever(s), subjective, sweats or weight loss Eyes Eyes: Denies blurry vision, change in vision or diplopia ENT ENT ED: Denies ear pain, rhinorrhea or sore throat Cardiovascular Cardiovascular: Denies chest pain, orthopnea, palpitations, paroxysmal nocturnal dyspnea or racing heartbeat Respiratory/Chest Respiratory/Chest: Reports dyspnea and dyspnea on exertion; Denies cough, orthopnea, paroxysmal nocturnal dyspnea or sputum Gastrointestinal Gastrointestinal: Denies abdominal pain, constipation, diarrhea, nausea or vomiting Genitourinary Genitourinary ED: Reports other Details: Patient has indwelling Jordan since surgery ; Denies dysuria, hematuria or urinary frequency Musculoskeletal Musculoskeletal: Reports back pain; Denies myalgias or neck pain Integumentary Denies abscess, Abrasions or rash Neurologic Neurologic: Denies headache(s), paresthesias or weakness Endocrine Endocrinology: Denies polydipsia, polyphagia or polyuria Hematologic/Lymphatic Hematologic/Lymphatic: Denies easy bleeding or easy bruising EXAM Physical Exam Const Vital Signs: 07/04/21 19:43 Temperature 98.2 F Temperature Source Temporal Pulse Rate 77 Respiratory Rate 20 H Blood Pressure 145/98 H Blood Pressure Mean 113 Pulse Ox 97 Oxygen Delivery Method Room Air Positive well nourished and well developed General Appearance ED: well developed and NAD; Negative for cyanotic or diaphoretic HEENT Reports moist mucous membranes HEENT Narrative: Ears normal. Nares patent. Posterior pharynx out erythema or exudate. normocephalic and atraumatic Eyes PERRL and EOMs intact bilaterally Neck full ROM and supple General: Negative for tenderness Chest Wall inspection of chest normal and palpation of chest normal Resp normal respiratory effort and clear to auscultation bilaterally Effort and Inspection: Negative for pain with movement Cardio regular rate, regular rhythm, S1 normal heart sound, S2 normal heart sound and no murmurs GI non-distended and no masses Auscultation: normoactive bowel sounds Palpation: soft, tender and other Other Details: Expected operative tenderness over port sites Back/Spine no CVA tenderness Cervical Spine: Negative for cervical spine tenderness Thoracic Spine / Upper Back: Negative for thoracic spinal tenderness Extremity normal to inspection and full ROM Extremity Narrative: There is no asymmetry, swelling, discoloration, leg vein distention, palpable cords or tenderness along the distribution of the deep venous system. General Extremety ED: Yes edema General Extremity: edema Neuro oriented x3 and CN's II-XII intact bilaterally Sensorium / Orientation: alert Psych mental status grossly normal Skin Skin Narrative: Surgical/port sites intact without evidence of infection Lesions: no lesions Rashes: no rashes Trauma: no lacerations or abrasions MDM MDM MDM Narrative Medical decision making narrative: With history of recent surgery, diagnosis of cancer and abrupt onset of dyspnea with pleuritic chest pain need to rule out pulmonary embolus. Appropriate blood work was obtained and CTA of the chest was obtained to rule out pulmonary embolus. Per my interpretation of the CAT scan patient has an infiltrate right lower lobe. There is also atelectasis noted on the left. This is the area where he is complaining of pleuritic pain on the right. We will treat with doxycycline for respiratory pathogens. Lab Data Attestation: I reviewed the patient's lab results. Rhythm Strip Rhythm Strip: Sinus Rhythm Rate: 76 Ectopy: None Discharge Plan Triage Chief Complaint: Upper Extremity Injury ED Provider: Javon Franco Dx/Rx/DC Orders Clinical Impression: Community acquired pneumonia of right lower lobe of lung, Pleurisy Instructions: ED Pneumonia (Adult) Prescriptions: New doxycycline monohydrate 100 MG capsule 100 mg PO BID Qty: 14 RF: 0 No Action clopidogrel 75 mg tablet 75 mg PO DAILY RF: 0 metoprolol tartrate 25 mg tablet 25 mg PO BID Qty: 180 RF: 3 ramipril [Altace] 1.25 mg capsule 1.25 mg PO QDAY Qty: 90 RF: 3 atorvastatin 80 mg tablet 80 mg PO QDAY Qty: 90 RF: 3 Primary Care Provider: Shelby Arce Referrals: Shelby Arce DO [Primary Care Provider] - 3-5 Days if not improving Disposition Disposition: Home, Self Care What to do if you have Problems For any increased pain, shortness of breath, bleeding, nausea or vomiting, chest pain, or any unexpected problems, contact your Primary Care Provider. Call [facility] ([phone]) or report to the closest Emergency Room. Call 911 if necessary. 07/04/21 2340 <Electronically signed by Javon Franco MD> Cosigner Signature (if applicable): CC: Dr. Shelby Arce DO Signed Shelby Arce DO Work Phone: Start: 07-04-2021 End: 07-04-2021 CTA Chest W/WO Contrast Comments: See Note; NOTES: [facility] Imaging Services [address] [place] [id number] CTA Chest W/WO Contrast MR#: [id number] Acct: [id number] Name: DIMPLE LOPEZ Rep #: [id number] : 1960 M 60 From: Randolph Gray DO PCP: Dr. Shelby Arce DO Status: REG ER Study: CTA Chest W/WO Contrast Date of Exam: 07/04/21 Exam# [id number] Ordering Dr: Javon Franco MD STUDY: CTA CHEST REASON FOR EXAM: Male, 60 years old. High pretest probability for pulmonary embolus. Pain in the right shoulder blade area. Recent prostatectomy for prostate cancer. RADIATION DOSAGE (If Supplied By Facility): CTDIvol = ( 13.90 ) mGy, DLP = ( 457.95 ) mGycm TECHNIQUE: The examination was performed with the intravenous administration of IV 100mL Isovue-370. Post-processing of the angiographic images was performed, with multiplanar reformation and 3D reconstruction. Individualized dose optimization techniques were used for this CT. COMPARISON: None. FINDINGS: Normal enhancement of the main pulmonary artery and right and left pulmonary arteries. Normal enhancement of the bilateral peripheral pulmonary arteries. There is no demonstrated pulmonary embolism. Normal thoracic aorta and visualized great vessels. There is no demonstrated aortic dissection. Normal heart and pericardium. There is the stent in the left coronary artery. Normal mediastinum. Normal hilar regions. Normal visualized trachea and bronchi. The lungs are well expanded. There is infiltrate versus atelectatic changes at the right lung base. Minimal atelectatic changes are seen at the left lung base. Normal pleura. Normal chest wall structures. Normal osseous structures. Normal visualized upper abdomen. CT/CTA Chest W/WO Contrast IMPRESSION: 1. No evidence of pulmonary embolus. 2. No aortic dissection or aneurysm. 3. Bibasilar atelectatic changes. The possibility of minimal right basilar infiltrate cannot be completely ruled out. Electronically Signed: Randolph Gray DO at 23:27 EST Reading Location ID and State: [address] [place] [address] Tel [phone], Service support , CC: Dr. Shelby Arce DO; Dr. Javon Franco MD Link Fabric Machine Operator: Signed Shelby Arce DO Work Phone: Start: 06-23-2021 End: 06-23-2021 Operative Report Comments: See Note; NOTES: [facility] Medical Records Department [address] [place] [address] Operative Report 06/23/21 1151 MR#: [id number] Acct: [id number] Name: DIMPLE LOPEZ Rep #: [id number] : 1960 60 From: Sushil Monroy MD PCP: Dr. Shelby Arce, DO [place]: [place] [id number] Report of Operation Date of Procedure: 06/23/21 Pre-Operative Diagnosis: Prostate cancer, BPH with urinary frequency Surgery/Procedure Performed:: Laparoscopic robotic assisted radical prostatectomy, bilateral pelvic lymph node dissection, EMG monitoring of the sphincter and pelvic nerves. Description of Surgical Findings:: Patient presented to the hospital for treatment of his prostate cancer with radical prostatectomy. In the preoperative setting we discussed the options of management for his prostate cancer including active surveillance, radiation treatments, radioactive seeds, and radical robotic prostatectomy. We discussed the side effects of surgery including the potential to lose erections. We discussed the potential to have bladder control problems with stress incontinence which can be temporary or permanent. We discussed the risk of the surgery including the risk of general anesthetic, risk of bleeding, risk of infection, and risk of formation of hernia either incisional hernia or inguinal hernia. After long discussion with the patient the preoperative setting and also reviewed this in the preop area patient signed the consent form and we proceeded with a radical prostatectomy. Patient was taken back to the operating room he was identified, time out procedure was performed and he was placed supine on the table he underwent general anesthesia with intubation. The abdomen was shaved prepped and draped in usual sterile fashion as well as the penis and testicles. A 16 Hong Konger catheter was placed into the bladder with clear return of urine. I then made an incision in the umbilicus and dissected down to the fascia advance a Veress needle into the peritoneal cavity and insufflated the peritoneal cavity with CO2 gas. I then placed a 12 mm trocar above the umbilicus. I then visualized the placement of the rest of the trochars, I placed a right arm robotic trocar, and air seal trocar, a suction port 5 mm trocar. And on the left side I placed 2 robotic arms. Once all the trochars were in placed the patient was put in steep Trendelenburg. And the robot was docked the arms were docked and then I placed the 0 degree camera through the robotic arm and also used a 30 degree camera during certain parts of the case. I used scissors in the right arm, prograsp in the third arm, and a bipolar in the second arm. Initial dissection was to free the sigmoid colon off the lateral wall this was done by meticulously dissecting off the peritoneum and the sigmoid colon off the left lateral wall. This then allowed the prograsp to retract the sigmoid colon out of the pelvis. I then went below the bladder and identified the vas deferens incised the peritoneum over the vas deferens and traced the vas deferens below the bladder to the prostate and identified the right and left vasa deferens. Below behind the vas deferens then the seminal vesicles were identified. I then dissected the seminal vesicle free using pinpoint electrocautery and then we identified the other seminal vesicle and then dissected this using pinpoint electrocautery I then elevated the vas deferens and several vesicles off the prostate and was able to sweep the Denonvilliers' fascia off the prostate posteriorly all the way up to the apex of the prostate. Working laterally I made sure I went as lateral as possible to sweep the Denonilliers' fascia off the posterior aspect of the prostate and worked my way back, I then transected the vas deferens and the left and right side the seminal vesicles were then dissected free. And then I pulled out of the pelvis. At this point the bladder was dropped creating the space of Retzius with the bladder on traction with the fourth arm. Using electrocautery I dissected in the anterior peritoneal fascia and then created the space of Retzius dissecting towards the prostate. The pelvic lymph node dissection was then performed both on the left and the right pelvic lymph nodes the nodes that were taken on the right side extended from the right iliac artery lateral pelvic sidewall up to the junction of the artery and the lymph nodes and down to the obturator nerve and then also below the keyboard operator nerve all the lymph nodes were removed during to remove those lymph nodes we used clips and electrocautery to control small blood vessels and also the control lymphatic. I then went to the left side and again did an extensive lymph node dissection starting of the left iliac artery extending the left iliac vein on the lateral sidewall down to the obturator nerve and the left side beyond the keyboard operator nerve down further behind it cleaning out all the lymphatic tissue all this tissue was sent off as a specimen we use clips and electrocautery during the dissection. At the end we cleaned out all the lymphatic tissue on the right pelvic wall and no lymphatic tissue in the left pelvic wall. The prostate was then cleaned of the fat over the prostate and the fourth arm was used to retract the bladder and place traction. I then identified the endopelvic fascia that was overlying the prostate on the right side I incised endopelvic fascia and wwept the levator muscles off the prostate all the way to the apex on the right side, I then worked my way anterior to the prostate then transected to the puboprostatic ligament and the underlying dorsal vein complex was not injured. I then went to the other side and identified the endopelvic fascia in the left side incised in a fashion the left side and swept the levator muscles off the prostate on the left side all the way up to the apex the puboprostatic ligament on the left side was then dissected and transected I then freed up the fascia overlying the dorsal vein complex. I then used the prograsp to encircled the dorsal vein complex with the prograsp and then switched over to the right and left needle cdl flatbed truck driver and suture ligated the dorsal vein complex above the prograsp. The prograsp was then placed back in the bladder and put back on traction I then identified the junction between the bladder and the prostate and dissected down between the bladder and the prostate untilI came across the catheter we then dissected posteriorly to the bladder and prostate to free the prostate and the bladder off each other and the muscles between the bladder and the prostate was then cauterized to free up the bladder. I then placed the EMG electrodes into the abdomen where the kit provided from the pro-Pep intranerve monitoring team, after the electrodes were placed I placed the first electrode on the right side and the right levator muscles on the second electrode the left side the left levator muscles we then used the action potential to map out the nerves on the pelvic floor running laterally on both the left and right side after these were mapped out and I continued with the dissection. I then went on top of the prostate and identified the endopelvic fascia on top of the prostate this was incised all the way to the apex and then we swept the endopelvic fascia off the prostate laterally and then identified the plane between endopelvic fascia and the prosthetic pseudocapsule and swept the fascia laterally until reaching the course of the neurovascular bundles and then released the neurovascular bundles off the prostate laterally all the way back in a retrograde fashion back to the junction of the pedicles then the prostate was placed on traction with the fourth arm pulling the prostate laterally identified the pedicle to the prostate between the seminal vesicles and the and the neurovascular bundle and this was taken using sequential small hemolocks. After the pedicle was taken the I then dissected underneath the prostate sweeping the neurovascular bundle off the prostate we able to follow the nice smooth plane between the neurovascular bundle and the pseudocapsule all the way to the apex once this was identified we swept this up all the way up to the apex and there was perfect nerve sparing on the right side. Then went to the left side the prostate identified the endopelvic fascia over the left side of the prostate I incised the endopelvic fascia all the way to the apex and then swept this off laterally I then released the neurovascular bundles on the left side of the prostate sweeping him off the prostate laterally I then elevated the prostate up up with the prostate and traction identified the pedicle to the prostate on the left side and then the pedicles taken with sequential Hem-o-nighat clips I then was able to dissected the neurovascular bundle off the left posterior aspect the prostate this was a perfect dissection all the way up on the left side following the pseudocapsule all the way up the left side until we reached the apex of the prostate. After the both the neurovascular bundles has been swept off the posterior to the prostate I then went above and transected the dorsal vein complex there was minimal to no bleeding but then dissected down to the urethra and circumfencial dissected around the urethra I then switched the right and left arm with the needle drivers and I suture-ligated the dorsal vein complex again just to ensure that there was no bleeding from the dorsal vein complex. I then transected through the urethra with scissors and the prostate was then freed and released off the prostate bed and put an Endo Catch bag. At this point after the prostate had been removed I then went back the electrodes were still in place and we checked again the electrostimulation the right and left side and we confirmed that the EMG electrodes were still functioning the still action potential in both the left side confirming the sparing of the both pelvic nerves in the left and right side. Then at this point the bladder neck was reconstructed and then an anastomosis was performed between the prostate and the bladder with a 3 oh V-Loc stitch in a running fashion starting from the bladder neck at the 6 o'clock position working to the 12 o'clock position with continuous stitches to complete a perfect anastomosis between the bladder and the prostate. I then placed a new catheter into the bladder, an 18 Hong Konger pilot station tip catheter flushed the bladder and there was no leakage from the anastomosis I put 10 cc in the balloon and pulled it up pulled back gently. I then ensured that there was no bleeding from the dorsal vein complex no bleeding from the neurovascular bundles FloSeal was placed as necessary once hemostasis was ensured and adequate then I placed the bladder back in position in the pelvis the prostate was exchanged to the camera port I closed the air seal port with a 10 12 Jaren Hoffmann stitch. And the extracted the prostate through the umbilicus. The robot was undocked all the ports were removed under direct visualization then closed the extraction site with 0 Vicryl with a CT1 needle once the extraction site was closed. I then closed all the incision with subcuticular stitches with 4-0 Monocryl and then bandages were placed on the incisions catheter was flushed to make sure it was draining well there was no clots and it was crystal clear patient's anesthetic was reversed he was extubated and taken back to the PACU in stable condition all the needles and sponges and instruments were accounted for. Blood loss was minimal and the drain was a 18 Hong Konger Jordan catheter. No other surgical drain was left. I was present during the entire case. Surgeon: jose Type of Anesthesia: General Estimated Blood Loss (mL): 150cc Admit VTE Documentation VTE Present on Admission: No VTE Mechan Device Prophylaxis: SCD's VTE Pharm Prophylaxis ordered?: No 06/23/21 1156 <Electronically signed by Sushil Monroy MD> Cosigner Signature (if applicable): CC: Dr. Tyrone Hi MD; Dr. Randolph Gonzalez MD; Dr. Sushil Monroy MD; Dr. Shelby Arce, DO Signed Shelby Arce DO Work Phone: Start: 06-23-2021 End: 06-23-2021 Discharge Instruction Comments: See Note; NOTES: [facility] Medical Records Department [address] [place] [address] Instructions for Home/Discharge Instructions 06/23/21 0744 MR#: [id number] Acct: [id number] Name: DIMPLE LOPEZ Rep #: [id number] : 1960 60 From: Sushil Monroy MD PCP: Dr. Shelby Arce, DO [place] [facility] [place] Instructions Diet Discharge Diet: Light diet - advance as tolerated and Soft diet Activity Discharge Activity: May Not Drive (while taking narcotic pain medications.) May shower in (days): 1 Lifting Restrictions: No lifting >10 lbs for 6 weeks Dressing / Incision Call your doctor if you observe: Fever of 101 or Higher Cleanse incision/area with: Soap Water Catheter: Jordan to leg bag and Jordan to large bag Drain: [place] Follow Up Care Please Follow Up With: Sushil Monroy MD When: Call [phone] for an appointment Test Results: Test results from this visit will be discussed in further detail at your follow-up appointment, if applicable. Discharge Plan Admission Primary Reason for Your Visit: Radical Prostatectomy Attending Provider: Sushil Monroy Primary Care Provider: Shelby Arce Consulting Providers: Tyrone Hi ; Randolph Gonzalez Instructions Patient Instructions: Radical Prostatectomy Dc Discharge Orders/Prescriptions Prescriptions: New ciprofloxacin HCl [Cipro] 500 mg tablet 500 mg PO BID Qty: 20 RF: 0 oxycodone-acetaminophen 5-325 mg tablet 1 tab PO Q6H PRN (Reason: pain) 7 Days Qty: 14 RF: 0 docusate sodium [Colace] 100 mg capsule 100 mg PO BID Qty: 20 RF: 0 Continued metoprolol tartrate 25 mg tablet 25 mg PO BID Qty: 180 RF: 3 ramipril [Altace] 1.25 mg capsule 1.25 mg PO QDAY Qty: 90 RF: 3 atorvastatin 80 mg tablet 80 mg PO QDAY Qty: 90 RF: 3 Discontinued aspirin [Adult Low Dose Aspirin] 81 mg tablet,delayed release (DR/EC) 81 mg PO .q day RF: 0 clopidogrel [Plavix] 75 mg tablet 75 mg PO QDAY Qty: 90 RF: 3 Other Ambulatory Orders: 12 Lead EKG (Routine) Timeframe: [id number] Location: None Selected Ordered By: Dr. Randolph Gonzalez Referrals / Follow Up: Sushil Monroy MD [STAFF PHYSICIAN] - Shelby Arce DO [Primary Care Provider] - Disposition Disposition (needs filled in before D/C Order can be placed): Home, Self Care 06/23/21 0745<Electronically signed by Sushil Monroy MD>Sushil Monroy MD CC: Dr. Tyrone Hi MD; Dr. Randolph Gonzalez MD; Dr. Shelby Arce, DO Signed Shelby Arce DO Work Phone: Start: 06-23-2021 End: 06-23-2021 History and Physical Exam Comments: See Note; NOTES: [facility] Medical Records Department [address] [place] [address] History Physical Exam 06/23/21 0743 MR#: [id number] Acct: [id number] Name: DIMPLE LOPEZ Rep #: [id number] : 1960 60 From: Sushil Monroy MD PCP: Dr. Shelby Arce, Status:[facility] Location: [place] [address] HPI - General HPI Narrative DIMPLE LOPEZ, is a 60 M who presents for radical prostatectomy history of intermediate risk prostate cancer plan to proceed with nerve sparing and bilateral pelvic lymph node dissection we will do monitoring of the EMG sphincter and pelvic nerves. [facility] Medical History (Updated 06/23/21 @ 07:[address] 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 Cancer Chest pain Essential (primary) hypertension History of heart attack History of stress test Hyperlipidemia Hypertension Palpitations Prostate disease Wears glasses Home Medications atorvastatin 80 mg tablet 80 mg PO QDAY #90 tab 10/11/20 [Rx Last Taken 06/22/21] metoprolol tartrate 25 mg tablet 25 mg PO BID #180 tab 10/11/20 [Rx Last Taken 06/22/21] ramipril 1.25 mg capsule 1.25 mg PO QDAY #90 cap 10/11/20 [Rx Last Taken 06/22/21] ciprofloxacin HCl [Cipro] 500 mg PO BID #20 tab 06/23/21 [Rx Last Taken Unknown] docusate sodium [Colace] 100 mg PO BID #20 cap 06/23/21 [Rx Last Taken Unknown] oxycodone-acetaminophen 1 tab PO Q6H PRN 7 Days #14 tab 06/23/21 [Rx Last Taken Unknown] Allergy/AdvReac Type Severity Reaction Status Date / Time No Known Allergies Allergy Verified 06/23/21 06:05 Family History Father Mitral valve regurgitation Congestive heart failure Surgical History (Updated 06/14/21 @ 09:00 by Cathi Wheeler) History of coronary artery stent placement (10/2006) History of dental surgery History of left heart catheterization (05/21/07) History of right inguinal hernia repair History of vasectomy Social History (Updated 07/28/20 @ 16:[address] Tyrone Hi MD) Smoking Status: Former smoker pack-years: 20 Vital Signs Vital Signs Vital Signs: 06/23/21 06:09 Temperature 98.3 F Temperature Source Temporal Pulse Rate 57 L Respiratory Rate 18 Blood Pressure 116/75 Blood Pressure Mean 88 Blood Pressure Source Monitor Blood Pressure Position Semi-Fowlers Blood Pressure Location Right Arm Pulse Ox 96 Oxygen Delivery Method Room Air Weight Weight: 78 kg Body Mass Index (BMI) 24.0 Results Lab / Micro Data Result Diagrams: 06/20/21 07:46 06/20/21 07:46 06/23/21 0744 <Electronically signed by Sushil Monroy MD> Cosigner Signature (if applicable): CC: Dr. Sushil Monroy MD; Dr. Shelby Arce DO Signed Shelby Arce DO Work Phone: Start: 06-20-2021 End: 06-21-2021 12 Lead EKG Comments: See Note; NOTES: [facility] [address] [place] [address] 12 Lead EKG 06/20/21 0815 MR#: [id number] Acct: [id number] Name: DIMPLE LOPEZ Rep #: [id number] : 1960 60 From: Christopher Rajan MD Attending Dr: Dr. Sushil Monroy MD Status: [place] [facility] [place]: Sushil Monroy MD Date: 06/20/21 [place]: [facility] [place] Sex: M C Admitted: Test Reason : PREOP Blood Pressure : / mmHG Vent. Rate : 051 BPM Atrial Rate : 051 BPM P-R Int : 190 ms QRS Dur : 074 ms QT Int : 408 ms P-R-T Axes : 039 035 034 degrees QTc Int : 376 ms Sinus bradycardia Otherwise normal ECG Confirmed by SATINDER JIMENEZ, CHRISTOPHER ([id number]), electronic news gathering editor PRANAY ESCOBAR ([id number]) on 06/21/2021 9:38:46 AM Referred By: Sushil Monroy Confirmed By:CHRISTOPHER RAJAN MD 06/21/21 0938 Date Christopher Rajan MD CC: Dr. Sushil Monroy MD; Dr. Shelby Arce, DO Signed Shelby Arce DO Work Phone: Start: 06-02-2021 End: 06-03-2021 Bone Scan Whole Body Comments: See Note; NOTES: [facility] Imaging Services [address] [place] [address] Bone Scan Whole Body MR#: [id number] Acct: [id number] Name: DIMPLE LOPEZ Rep #: [id number] : 1960 M 60 From: Dc Camacho PCP: Dr. Shelby Arce DO Status: REG CLI Study: Bone Scan Whole Body Date of Exam: 06/02/21 Exam# [id number] Ordering Dr: Sushil Monroy MD CLINICAL: 60-year-old male with history of carcinoma of the prostate. WHOLE BODY 99m Tc MDP RADIONUCLIDE BONE SCINTIGRAPHY COMPARISON: MRI of the pelvis report 05/30/2021 FINDINGS: Following the intravenous administration of 26.0 mCi of 99m Tc MDP, whole body bone images reveal: 1. Increased radiopharmaceutical concentration is defined in the mid cervical spine posteriorly on the right, lower cervical spine posteriorly on the left, fifth lumbar vertebra posteriorly on the left, acromioclavicular and sternoclavicular compartments of both shoulders, the left wrist, right forefoot. 2. The remaining skeletal structures are scintigraphically unremarkable with normal-appearing renal images and urinary bladder activity identified. Calcification is encountered in the bilateral costochondral junctions. Asymmetric increased tracer uptake is noted in the right proximal tibial metaphysis-lateral tibial plateau most consistent with periostitis. NM/Bone Scan Whole Body IMPRESSION: 1. The increase in radiopharmaceutical concentration defined in the cervical and lumbar spine, bilateral shoulders, left wrist and right forefoot is most consistent with degenerative arthritis. 2. There is no definitive typical scintigraphic evidence of diffuse axial skeletal metastatic disease on the current examination. Electronically Signed: Dc Fleming DO at 10:35 EST Tel , Service support , CC: Dr. Sushil Monroy MD; Dr. Shelby Arce DO Link Fabric Machine Operator: Signed Shelby Arce DO Work Phone: Start: 05-30-2021 End: 05-31-2021 Pelvis W/WO Contrast Comments: See Note; NOTES: [facility] Imaging Services [address] [place] [address] Pelvis W/WO Contrast MR#: [id number] Acct: [id number] Name: DIMPLE LOPEZ Rep #: [id number] : 1960 M 60 From: Capo Henderson MD PCP: Dr. Shelby Arce DO Status: REG CLI Study: Pelvis W/WO Contrast Date of Exam: 05/30/21 Exam# [id number] Ordering Dr: Sushil Monroy MD STUDY: MR PELVIS WITH AND WITHOUT CONTRAST (PROSTATE) REASON FOR EXAM: Male, 60 years old. Elevated PSA TECHNIQUE: Standardized multiparametric prostate MRI with T1, T2, DWI/ADC sequences were obtained in 3 orthogonal planes, and dynamic contrast enhancement sequences. 15 ml of dOTAREM contrast material was administered intravenously for the contrast portion of the examination. COMPARISON: None. FINDINGS: The prostate volume measures 20 mm3. The contours of the prostate gland are smooth. There is not mass effect on the bladder base. The transition zone is heterogenous. PI-RADS DWI score 3 - Focal mildly hypointense on ADC and isointense/mildly hyperintense on high b-value DWI. PI-RADS T2W score 2 - A mostly encapsulated nodule OR a homogeneous circumscribed nodule without encapsulation ( atypical nodule) or a homogeneous mildly hypointense area between nodules.. Contrast enhancement no early or contemporaneous enhancement; or diffuse multifocal enhancement NOT corresponding to a focal finding on T2W and/or DWI or focal ehancement responding to a lesion demonstrating features of BPH onT2WI (including features of extruded BPH in the PZ). The peripheral zone is heterogenous. PI-RADS DWI score 2 - Linear/wedge shaped hypointense on ADC and/or linear/wedge shaped hyperintense on high b-value DWI. PI-RADS T2W score 2 - Linear, wedge-shaped, or diffuse mild hypointensity, usually with indistinct margin. Contrast enhancement no early or contemporaneous enhancement; or diffuse multifocal enhancement NOT corresponding to a focal finding on T2W and/or DWI or focal enhancement responding to a lesion demonstrating features of BPH onT2WI (including features of extruded BPH in the PZ). The seminal vesicles demonstrate multiple simple appearing cysts.. No mass lesion or invasion depicted. The rectoprostatic angles are normal. Urinary bladder is normal without wall thickening. The vascular structures of the are normal. The visualized hollow viscus structures are normal. Mildly enlarged lymph nodes in the bilateral inguinal regions measuring up to 1.0 x 1.5 cm on the right and 1.0 x 2.0 cm on the left. Heterogeneous signal intensity of the pelvic bone marrow likely represents fatty marrow conversion without nato edema or destructive osseous process. MRI/Pelvis W/WO Contrast IMPRESSION: 1. PIRADS v2.1 2019 -- 2 - Low (clinically significant cancer is unlikely). 2. Mild bilateral inguinal adenopathy. Electronically Signed: Capo Henderson MD (Brooks) at 8:59 EST , Service support , CC: Dr. Sushil Monroy MD; Dr. Shelby Arce DO Link Fabric Machine Operator: Signed Shelby Arce DO Work Phone: Start: 07-28-2020 End: 07-28-2020 Cardiology Visit Report Comments: See Note; NOTES: [facility] [address] [place], [place] [address] OFFICE VISIT Date of Service: 07/28/20 MR#: [id number] Acct: [id number] Name: DIMPLE LOPEZ Rep #: [id number] : 1960 Provider: Dr. Tyrone Hi MD Age/Sex: 59/M Location: [facility] Status: Signed HPI HPI History of Present Illness Details: DIMPLE LOPEZ, is a 59 M who presents to the office today for a follow-up visit. He is a gentleman with a history of coronary disease status post angioplasty and stenting of the circumflex artery remotely in 2006. He is done well since then he denies any chest pain or shortness of breath or paroxysmal nocturnal dyspnea pedal edema he has had no neck arm or jaw discomfort suggest angina. 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 He did have a lot of stress testing 2015 where he exercised to 13.4 met equivalents without any chest pain. He had a repeat stress test in October 2018 where he exercised to a high metabolic workload without any chest pain. He continues to participate in most activities of daily living without any problems whatsoever. His physical exam today demonstrates clear lung camejo regular rate and rhythm and no pedal edema. Intake Vital Signs 07/28/20 Height 5 ft 11 in 07/28/20 Weight: 171 lb 07/28/20 BMI 23.8 07/28/20 BP 141/78 H 07/28/20 Respiration 16 07/28/20 Pulse 64 07/28/20 Pulse Oximetry (%) 98 Intake Visit Reasons: 1 Y FU Allergies No Known Allergies Allergy (Verified 07/30/19 08:59) Medications aspirin 81 mg tablet,delayed release 81 mg PO .q day tab 07/22/17 [History Confirmed 07/28/20] nitroglycerin 0.4 mg sublingual tablet 0.4 mg SUBLINGUAL Q5-15M PRN 07/22/17 [History Confirmed 07/28/20] atorvastatin 80 mg tablet 80 mg PO QDAY #90 tab 10/15/19 [Rx Confirmed 07/28/20] clopidogrel 75 mg tablet 75 mg PO QDAY #90 tab 10/15/19 [Rx Confirmed 07/28/20] metoprolol tartrate 25 mg tablet 25 mg PO BID #180 tab 10/15/19 [Rx Confirmed 07/28/20] ramipril 1.25 mg capsule 1.25 mg PO QDAY #90 cap 10/15/19 [Rx Confirmed 07/28/20] PFSH Medical History Palpitations (Chronic) Atherosclerotic heart disease of [place] coronary artery without angina pectoris (Chronic) Essential (primary) hypertension (Chronic) Hyperlipidemia (Chronic) Surgical History History of coronary artery stent placement (Resolved 10/2006) History of arthroplasty (Resolved) History of dental surgery (Resolved) History of left heart catheterization (Resolved 05/21/07) History of right inguinal hernia repair (Resolved) History of vasectomy (Resolved) Family History Father Mitral valve regurgitation Congestive heart failure Social History (Updated 07/28/20 @ 16:[address] Tyrone Hi MD) Smoking Status: Former smoker pack-years: 20 ROS Const Const: Negative for fatigue, weakness, headache(s), frequent falls, difficulty sleeping or excessive sweating Eyes Eyes: Negative for loss of peripheral vision, transient loss of vision, blurry vision, double vision or tunnel vision ENT ENT: Negative for headache(s), dizziness, Nosebleed/epistaxis or balance problems Cardio Chest Pain: No Palpitations: No Edema: None Muscle aches with walking: None Resp Respiratory: Negative for SOB with activity, SOB at rest, SOB orthopnea SOB lying down, Cough or paroxysmal nocturnal dyspnea GI GI: Negative nausea, vomiting, heartburn or black,tarry stools : Negative for hematuria Musc Musc: Negative for muscle aches/ myalgia, muscle weakness, joint pain or balance problems Skin Skin: Negative non-healing lesions, rash or unusual bruising Neuro Neuro: Negative for dizziness, lightheadedness, near syncope, syncope, orthostatic symptoms, frequent falls, headache(s), weakness, blurry vision, double vision or lack of coordination Eusebio Hematologic/Lymphatic: Negative for easy bleeding or easy bruising Endo Endo: Negative for fatigue, excessive sweating or increased thirst/drinking Psych Psych: Negative for anxiety or depression Allergy Allergy/Immunology: Negative for hives, Negative for rash Cardiology Exam Const Appearance: cooperative, healthy appearing, no acute distress, well developed and well groomed Nutritional Appearance: average body habitus and well nourished Orientation: alert, awake and oriented x3 Head Head: normal to inspection, normocephalic and atraumatic Ears: hearing grossly normal bilaterally and external ears normal Nose: external nose normal, nares normal, nasal mucous membranes and turbinates normal, septum normal, no nasal discharge Face and Sinus: face symmetric Mouth: oral mucosae normal, tongue normal, oropharynx normal and moist mucous membranes Teeth and gingiva: dentition normal Throat: posterior oropharynx normal, tonsils normal and uvula midline Eyes General: appearance normal, both eyes and all related structures Eyelids: eyelids normal Conjunctivae: conjunctivae normal Pupils: PERRL, normal by confrontation and accommodation normal EOM: EOM intact bilaterally Neck Neck: normal visual inspection, trachea midline and no JVD JVD: +5 Carotids: normal carotid upstroke and bounding pulses Chest Chest inspection: normal inspection of the chest, symmetric chest movement and normal respiratory effort Auscultation: Bilateral: Clear to Auscultation Cardio Palpation: normal PMI Rate: regular rate Rhythm: regular rhythm Heart sounds: S1 normal, S2 normal and normal, physiologic split S2; negative rub, gallop or murmur GI GI: normal to inspection, soft, no hepatosplenomegaly and bowel sounds present Neuro General: alert, awake, oriented x3, gait normal, moves all extremities and no focal sensory deficit Skin Skin: no rashes or lesions noted Extremities Pulses: Normal: Right Femoral Pulse, Left Femoral Pulse, Right Dorsalis Pedis Pulse, Left Dorsalis Pedis Pulse, Right Posterior Tibial Pulse, Left Posterior Tibial Pulse, Right Radial Pulse, Left Radial Pulse Lower Extremity Edema: None: Bilateral Musculoskel Musculoskeletal: No joint tenderness Psych Psychological: normal affect Assessment Plan 1. History of coronary artery stent placement Z95.5 PCI-ANSHU-LCx 10/2006 Plan He is status post previous angioplasty and stenting of the circumflex artery. He continues to do well his last stress test less than 2 years ago was excellent and at this time I do not think that he needs a repeat. He should be able to participate in any activities that he wants to. No restrictions are noted. 2. Essential (primary) hypertension I10 Plan His blood pressure is excellent at this particular time and I would not recommend that we make any changes. 3. Pure hypercholesterolemia E78.00 Plan He does have a history of hyperlipidemia. His most recent lipid profile demonstrating a total cholesterol 136, LDL of 59 and HDL of 6. No changes will be made with respect to the above. Thank you once again for allowing me to participate in his care. 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) Coding Level of Care Code Off vis,est,level 3 Diagnoses History of coronary artery stent placement Z95.5 Essential (primary) hypertension I10 Pure hypercholesterolemia E78.00 ?Hyperlipidemia type: pure hypercholesterolemia Coding Level of Care Code Off vis,est,level 3 Diagnoses History of coronary artery stent placement Z95.5 Essential (primary) hypertension I10 Pure hypercholesterolemia E78.00 ?Hyperlipidemia type: pure hypercholesterolemia Supplemental Info Supplemental Information Labs LDL Cholesterol 59 mg/dL (0-130) 07/07/20 HDL Cholesterol 56 mg/dL (40-) 07/07/20 Triglycerides 104 mg/dL (-199) 07/07/20 VLDL Cholesterol 21 mg/dL (5-40) 07/07/20 Diagnostics Stress Test Nuclear Medicine 01/20/16 Stress Test 11/03/18 07/28/20 1621 <Electronically signed by Tyrone Hi MD> Date Tyrone Hi MD Cosigner Signature: Date (if applicable) CC: Dr. Shelby Arce, DO Shelby Arce DO Work Phone: Start: 07-30-2019 End: 07-30-2019 Cardiology Visit Report Comments: See Note; NOTES: [facility] [address] [place] [address] OFFICE VISIT Date of Service: 07/30/19 MR#: [id number] Acct: [id number] Name: DIMPLE LOPEZ Rep #: [id number] : 1960 Provider: Tyrone Hi MD Age/Sex: 58/M Location: [facility] [place] Status: Signed HPI HPI History of Present Illness Details: DIMPLE LOPEZ, is a 58 M who presents to the office today for a follow-up visit. He is a gentleman with a history of coronary disease status post angioplasty and stenting of the circumflex artery remotely in 2006. He is done well since then he denies any chest pain or shortness of breath or paroxysmal nocturnal dyspnea pedal edema he has had no neck arm or jaw discomfort suggest angina. 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 He did have a lot of stress testing 2015 where he exercised to 13.4 met equivalents without any chest pain. He had a repeat stress test in October 2018 where he exercised to a high metabolic workload without any chest pain. His physical exam today demonstrates clear lung camejo regular rate and rhythm and no pedal edema. Intake Vital Signs07/30/19 Height 5 ft 11 in 07/30/19 Weight: 172 lb 07/30/19 BMI 24.0 07/30/19 BP 148/75 H 07/30/19 Blood Pressure Location Lt brachial 07/30/19 Position Sitting 07/30/19 Respiration 18 07/30/19 Pulse 63 07/30/19 Pulse Source Monitor Intake Visit Reasons: 1 Y FU Crochet Beader Required: No Accompanied by: None Is patient in pain?: No Allergies No Known Allergies Allergy (Verified 07/30/19 08:59) Medications aspirin 81 mg tablet,delayed release 81 mg PO .q day tab 07/22/17 [History Confirmed 07/30/19] nitroglycerin 0.4 mg sublingual tablet 0.4 mg SUBLINGUAL Q5-15M PRN 07/22/17 [History Confirmed 07/30/19] atorvastatin 80 mg tablet 80 mg PO QDAY #90 tab 10/20/18 [Rx Confirmed 07/30/19] clopidogrel 75 mg tablet 75 mg PO QDAY #90 tab 10/20/18 [Rx Confirmed 07/30/19] metoprolol tartrate 25 mg tablet 25 mg PO BID #180 tab 10/20/18 [Rx Confirmed 07/30/19] ramipril 1.25 mg capsule 1.25 mg PO QDAY #90 cap 10/20/18 [Rx Confirmed 07/30/19] PFS Social History (Updated 07/30/19 @ 09:[address] Tyrone Hi MD) Smoking Status: Former smoker pack-years: 20 ROS Const Const: Negative for fatigue, weakness, headache(s), frequent falls, night sweats, daytime sleepiness or excessive sweating Eyes Eyes: Negative for blind spots, loss of peripheral vision, transient loss of vision, blurry vision or double vision ENT ENT: Negative for headache(s), dizziness, Nosebleed/epistaxis, balance problems, lip swelling or tongue swelling Cardio Chest Pain: No Palpitations: No Edema: None Muscle aches with walking: None Resp Respiratory: Negative for SOB with activity, SOB at rest, SOB orthopnea\SOB lying down, Cough or paroxysmal nocturnal dyspnea GI GI: Negative nausea, vomiting, heartburn, bright, red blood in stools or black,tarry stools : Negative for hematuria Musc Musc: Negative for muscle aches/ myalgia, muscle weakness, joint pain or balance problems Skin Skin: Negative non-healing lesions, rash or unusual bruising Neuro Neuro: Negative for dizziness, lightheadedness, orthostatic symptoms, frequent falls, headache(s), weakness, blurry vision, double vision or lack of coordination Eusebio Hematologic/Lymphatic: Negative for easy bleeding or easy bruising Endo Endo: Negative for fatigue, cold intolerance, heat intolerance, excessive sweating, increased thirst/drinking or hair loss Psych Psych: Negative for anxiety or depression Allergy Allergy/Immunology: Negative for throat swelling, Negative for tongue swelling, Negative for hives, Negative for rash, Negative for lip swelling Cardiology Exam Const Appearance: cooperative, healthy appearing, no acute distress, well developed and well groomed Nutritional Appearance: average body habitus and well nourished Orientation: alert, awake and oriented x3 Head Head: normal to inspection, normocephalic and atraumatic Ears: hearing grossly normal bilaterally and external ears normal Nose: external nose normal, nares normal, nasal mucous membranes and turbinates normal, septum normal, no nasal discharge Face and Sinus: face symmetric Mouth: oral mucosae normal, tongue normal, oropharynx normal and moist mucous membranes Teeth and gingiva: dentition normal Throat: posterior oropharynx normal, tonsils normal and uvula midline Eyes General: appearance normal, both eyes and all related structures Eyelids: eyelids normal Conjunctivae: conjunctivae normal Pupils: PERRL, normal by confrontation and accommodation normal EOM: EOM intact bilaterally Neck Neck: normal visual inspection, trachea midline and no JVD JVD: +5 Carotids: normal carotid upstroke and bounding pulses Chest Chest inspection: normal inspection of the chest, symmetric chest movement and normal respiratory effort Auscultation: Bilateral: Clear to Auscultation Cardio Palpation: normal PMI Rate: regular rate Rhythm: regular rhythm Heart sounds: S1 normal, S2 normal and normal, physiologic split S2; negative rub, gallop or murmur GI GI: normal to inspection, soft, no hepatosplenomegaly and bowel sounds present Neuro General: alert, awake, oriented x3, gait normal, moves all extremities and no focal sensory deficit Skin Skin: no rashes or lesions noted Extremities Pulses: Normal: Right Femoral Pulse, Left Femoral Pulse, Right Dorsalis Pedis Pulse, Left Dorsalis Pedis Pulse, Right Posterior Tibial Pulse, Left Posterior Tibial Pulse, Right Radial Pulse, Left Radial Pulse Lower Extremity Edema: None: Bilateral Musculoskel Musculoskeletal: No joint tenderness Psych Psychological: normal affect Assessment AND Plan 1. Atherosclerotic heart disease of [place] coronary artery without angina pectoris I25.10 PTCA with ANSHU to mid CFX and AV groove of CFX 10/2006 Plan He does have a history of atherosclerotic cardiovascular disease status post previous remote stenting of the circumflex artery. He continues to do remarkably well at this time I do not think there is a reason to repeat any testing. He should continue with his current therapy. 2. Pure hypercholesterolemia E78.00 Plan His most recent lipid profile from April 2019 demonstrates a total cholesterol 152, LDL of 85 and HDL of 45. No other changes will be made. 3. Essential hypertension I10 Plan His blood pressure is under good control on the current medical therapy and I would not recommend we make any changes. Thank you for allowing me to participate in his care. 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) Coding Level of Care Code Off vis,est,level 3 Diagnoses Atherosclerotic heart disease of [place] coronary artery without angina pectoris I25.10 Pure hypercholesterolemia E78.00 Hyperlipidemia type: pure hypercholesterolemia Essential hypertension I10 Hypertension type: essential hypertension Coding Level of Care Code Off vis,est,level 3 Diagnoses Atherosclerotic heart disease of [place] coronary artery without angina pectoris I25.10 Pure hypercholesterolemia E78.00 Hyperlipidemia type: pure hypercholesterolemia Essential hypertension I10 Hypertension type: essential hypertension Supplemental Info Supplemental Information Labs LDL Cholesterol 85 mg/dL (0-99) 05/07/19 HDL Cholesterol 45 mg/dL (>39) 05/07/19 Triglycerides 140 mg/dL (-199) 05/07/19 VLDL Cholesterol 28 mg/dL (5-40) 05/07/19 Diagnostics Stress Test Nuclear Medicine 01/20/16 Stress Test 11/03/18 07/30/19 0914 <Electronically signed by Tyrone Hi MD> Date Tyrone Hi MD Cosigner Signature: Date (if applicable) CC: Shelby Andrew Start: 11-03-2018 End: 11-03-2018 Stress Report Comments: See Note; NOTES: [facility] [address] [place] [address] MR#: [id number] Acct: [id number] Name: DIMPLE LOPEZ Rep #: [id number] : 1960 58 From: Tyrone Hi MD Primary Care: Shelby Arce DO Status: REG I Referring Dr: Tyrone Hi MD Sex: M C Stress Test Report Exercise stress test. 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 Medications Plavix ramipril metoprolol aspirin atorvastatin. Stress protocol: Resting EKG demonstrates sinus bradycardia with a rate of 46 bpm. Resting blood pressures 118/70 mmHg. The patient exercised according to regular Dawit protocol for total duration of 11 minutes and 18 seconds completing 2 minutes and 18 seconds to stage IV of the Dawit protocol the maximum heart rate attained was 142 bpm which was 86% of maximum predicted heart rate. The maximum workload was 13.4 metabolic equivalents. Patient maintained sinus rhythm throughout the recording. At rest there were no ST or T wave changes noted suggest ischemia peak exercise upsloping ST changes were noted with no meet the criteria for ischemia. The resting blood pressures 118/70 mmHg with a peak blood pressure of 162/80 mmHg. No clinical angina was noted. No arrhythmias were noted. Conclusion: Exercise stress test with no EKG criteria for ischemia at high workload. Excellent functional capacity. No arrhythmias noted. 11/03/185 <Electronically signed by Tyrone Hi MD> Date Tyrone Hi MD CC: Tyrone Hi MD; Shelby Yazmin DO Date Dictated: 11/03/181732 Date Transcribed: 11/03/181732 Link Fabric Machine Operator: [place] Signed Shelby Arce Start: 07-24-2018 End: 07-24-2018 Cardiology Visit Report Comments: See Note; NOTES: [facility] [address] [place] [address] OFFICE VISIT Date of Service: 07/24/18 MR#: [id number] Acct: [id number] Name: DIMPLE LOPEZ Rep #: [id number] : 1960 Provider: Tyrone Hi MD Age/Sex: 57/M Location: [facility] Status: Signed HPI HPI Chief Complaint: Follow up Details: DIMPLE LOPEZ, is a 57 M who presents to the office today for a follow-up visit. He is a gentleman with a history of coronary disease status post angioplasty and stenting of the circumflex artery remotely in 2006. He is done well since then he denies any chest pain or shortness of breath or paroxysmal nocturnal dyspnea pedal edema he has had no neck arm or jaw discomfort suggest angina. 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 He did have a lot of stress testing 2015 where he exercised to 13.4 met equivalents without any chest pain. His physical exam today demonstrates clear lung camejo regular rate and rhythm and no pedal edema. Intake Vital Signs03/14/19 Height 5 ft 11 in 07/24/18 Weight: 171 lb 07/24/18 Body Mass Index (BMI) 23.8 07/24/18 Blood Pressure 123/77 H 07/24/18 Blood Pressure Location Lt brachial Intake Visit Reasons: 1 Y FU Crochet Beader Required: No Accompanied by: none Is patient in pain?: No Allergies No Known Allergies Allergy (Verified 07/24/18 15:57) Medications aspirin 81 mg tablet,delayed release 81 mg PO .q day tab 07/22/17 [History Confirmed 07/24/18] nitroglycerin 0.4 mg sublingual tablet 0.4 mg SUBLINGUAL Q5-15M PRN 07/22/17 [History Confirmed 07/24/18] atorvastatin 80 mg tablet 80 mg PO QDAY #90 tab 10/25/17 [Rx Confirmed 07/24/18] clopidogrel 75 mg tablet 75 mg PO QDAY #90 tab 10/25/17 [Rx Confirmed 07/24/18] metoprolol tartrate 25 mg tablet 25 mg PO BID #180 tab 10/25/17 [Rx Confirmed 07/24/18] ramipril 1.25 mg capsule 1.25 mg PO QDAY #90 cap 10/25/17 [Rx Confirmed 07/24/18] PFSH Medical History Palpitations (Chronic) Hypertension (Chronic) Hyperlipidemia (Chronic) Atherosclerotic heart disease of [place] coronary artery without angina pectoris (Chronic) Surgical History Stented coronary artery (Chronic) History of left heart catheterization (Chronic) History of arthroplasty (Chronic) History of dental surgery (Chronic) History of right inguinal hernia repair (Chronic) History of vasectomy (Chronic) Family History Father Mitral valve regurgitation Congestive heart failure Social History Smoking Status: Former smoker pack-years: 20 ROS Const Const: Negative for fatigue, weakness, headache(s), frequent falls, night sweats, daytime sleepiness or excessive sweating Eyes Eyes: Negative for blind spots, loss of peripheral vision, transient loss of vision, blurry vision or double vision ENT ENT: Negative for headache(s), dizziness, Nosebleed/epistaxis, balance problems, lip swelling or tongue swelling Cardio Chest Pain: No Palpitations: No Edema: None Muscle aches with walking: None Resp Respiratory: Negative for SOB with activity, SOB at rest, SOB orthopnea\SOB lying down, Cough or paroxysmal nocturnal dyspnea GI GI: Negative nausea, vomiting, heartburn, bright, red blood in stools or black,tarry stools : Negative for hematuria Musc Musc: Negative for muscle aches/ myalgia, muscle weakness, joint pain or balance problems Skin Skin: Negative non-healing lesions, rash or unusual bruising Neuro Neuro: Negative for dizziness, lightheadedness, orthostatic symptoms, frequent falls, headache(s), weakness, blurry vision, double vision or lack of coordination Eusebio Hematologic/Lymphatic: Negative for easy bleeding or easy bruising Endo Endo: Negative for fatigue, cold intolerance, heat intolerance, excessive sweating, increased thirst/drinking or hair loss Psych Psych: Negative for anxiety or depression Allergy Allergy/Immunology: Negative for throat swelling, Negative for tongue swelling, Negative for hives, Negative for rash, Negative for lip swelling Cardiology Exam Const Appearance: cooperative, healthy appearing, no acute distress, well developed and well groomed Nutritional Appearance: average body habitus and well nourished Orientation: alert, awake and oriented x3 Head Head: normal to inspection, normocephalic and atraumatic Ears: hearing grossly normal bilaterally and external ears normal Nose: external nose normal, nares normal, nasal mucous membranes and turbinates normal, septum normal, no nasal discharge Face and Sinus: face symmetric Mouth: oral mucosae normal, tongue normal, oropharynx normal and moist mucous membranes Teeth and gingiva: dentition normal Throat: posterior oropharynx normal, tonsils normal and uvula midline Eyes General: appearance normal, both eyes and all related structures Eyelids: eyelids normal Conjunctivae: conjunctivae normal Pupils: PERRL, normal by confrontation and accommodation normal EOM: EOM intact bilaterally Neck Neck: normal visual inspection, trachea midline and no JVD JVD: +5 Carotids: normal carotid upstroke and bounding pulses Chest Chest inspection: normal inspection of the chest, symmetric chest movement and normal respiratory effort Auscultation: Bilateral: Clear to Auscultation Cardio Palpation: normal PMI Rate: regular rate Rhythm: regular rhythm Heart sounds: S1 normal, S2 normal and normal, physiologic split S2; negative rub, gallop or murmur GI GI: normal to inspection, soft, no hepatosplenomegaly and bowel sounds present Neuro General: alert, awake, oriented x3, gait normal, moves all extremities and no focal sensory deficit Skin Skin: no rashes or lesions noted Extremities Pulses: Normal: Right Femoral Pulse, Left Femoral Pulse, Right Dorsalis Pedis Pulse, Left Dorsalis Pedis Pulse, Right Posterior Tibial Pulse, Left Posterior Tibial Pulse, Right Radial Pulse, Left Radial Pulse Lower Extremity Edema: None: Bilateral Musculoskel Musculoskeletal: No joint tenderness Psych Psychological: normal affect Assessment AND Plan 1. 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 Routine signs stress test can then be performed. He will call us to let us know when this is due. In the meantime should continue on his current medical therapy. 2. Essential hypertension I10 Plan He does have a history of essential hypertension which is well controlled on the current medications. I would not recommend we make any changes. 3. Pure hypercholesterolemia E78.00 Plan He does have a history of hyperlipidemia his most recent lipid profile was excellent with a total cholesterol 132, LDL 64 HDL 52. He will remain on his high intensity statin. No other changes will be made. Overall he is remarkably well. Thank you for allowing me to participate in the care of your patient. 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) Coding Level of Care Code Off vis,est,level 3 Diagnoses Stented coronary artery Z95.5 Essential hypertension I10 Hypertension type: essential hypertension Pure hypercholesterolemia E78.00 Hyperlipidemia type: pure hypercholesterolemia Coding Level of Care Code Off vis,est,level 3 Diagnoses Stented coronary artery Z95.5 Essential hypertension I10 Hypertension type: essential hypertension Pure hypercholesterolemia E78.00 Hyperlipidemia type: pure hypercholesterolemia Supplemental Info Supplemental Information Labs LDL Cholesterol 64 mg/dL (0-130) 07/10/18 HDL Cholesterol 52 mg/dL (40-) 07/10/18 Triglycerides 82 mg/dL (-199) 07/10/18 VLDL Cholesterol 16 mg/dL (5-40) 07/10/18 Diagnostics Stress Test Nuclear Medicine 01/20/16 07/24/18 1610 <Electronically signed by Tyorne Hi MD> Date Tyrone Hi MD Cosigner Signature: Date (if applicable) CC: Shelby Andrew Start: 07-23-2017 End: 07-23-2017 Cardiology Visit Report Comments: See Note; NOTES: [facility] [address] [place] [address]. [address] [place] [address] OFFICE VISIT Date of Service: 07/23/17 MR#: [id number] Acct: [id number] Name: DIMPLE LOPEZ Rep #: [id number] : 1960 Provider: Tyrone Hi MD Age/Sex: 56/M Location: [facility] Status: Signed HPI HPI Chief Complaint: Follow-up visit. Details: DIMPLE LOPEZ, is a 56 M who presents to the office today for a follow-up visit. He is a gentleman with a history of coronary disease status post Josefina a one-step history o plasty and stenting of the circumflex artery remotely in 2006. He is done well since then he denies any chest pain or shortness of breath or paroxysmal nocturnal dyspnea pedal edema he has had no neck arm or jaw discomfort suggest angina. 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 He did have a lot of stress testing 2015 where he exercised to 13.4 met equivalents without any chest pain. His physical exam today demonstrates clear lung camejo regular rate and rhythm and no pedal edema. Intake Vital Signs07/23/17 Height 5 ft 11 in 07/23/17 Weight: 170 lb 07/23/17 Body Mass Index (BMI) 23.7 07/23/17 Blood Pressure 110/60 Intake Visit Reasons: 1 Y FU Allergies No Known Allergies Allergy (Unverified 07/22/17 19:12) Medications aspirin 81 mg tablet,delayed release 81 mg PO .q day tab 07/22/17 [History Confirmed 07/23/17] atorvastatin 80 mg tablet 80 mg PO QDAY 07/22/17 [History Confirmed 07/23/17] clopidogrel 75 mg tablet 150 mg PO QDAY 07/22/17 [History Confirmed 07/23/17] metoprolol tartrate 25 mg tablet 25 mg PO BID 07/22/17 [History Confirmed 07/23/17] nitroglycerin 0.4 mg sublingual tablet 0.4 mg SUBLINGUAL Q5-15M PRN 07/22/17 [History Confirmed 07/23/17] ramipril 1.25 mg capsule 1.25 mg PO QDAY 07/22/17 [History Confirmed 07/23/17] Ejection fraction %: 65 to 70 PFSH Medical History Palpitations (Chronic) Hypertension (Chronic) Hyperlipidemia (Chronic) Atherosclerotic heart disease of [place] coronary artery without angina pectoris (Chronic) Surgical History Stented coronary artery (Chronic) History of left heart catheterization (Chronic) History of arthroplasty (Chronic) History of dental surgery (Chronic) History of right inguinal hernia repair (Chronic) History of vasectomy (Chronic) Family History Father Mitral valve regurgitation Congestive heart failure Social History Smoking Status: Former smoker pack-years: 20 ROS Const Const: Negative for fatigue, weakness, body ache, fever(s), headache(s), chills, frequent falls, night sweats, daytime sleepiness, difficulty sleeping, excessive sweating, weight gain, weight loss, increased appetite, poor appetite, anorexia or other Eyes Eyes: Negative for blind spots, loss of peripheral vision, transient loss of vision, blurry vision, change in vision, double vision, floaters, tunnel vision or other ENT ENT: Negative for headache(s), balance problems, tongue swelling or lip swelling Cardio Chest Pain: No Resp Respiratory: Positive for other (Has had a cough and congestion, fever 2 days ago.); negative for SOB with activity, SOB at rest, SOB orthopnea\SOB lying down, Coughing up blood/hemoptysis, chest congestion, pain on inspiration, snoring, stridor, wheezing, crackles or paroxysmal nocturnal dyspnea GI GI: Negative nausea, vomiting, heartburn, constipation, belching, bloating, cramping, vomiting blood/hematemesis, bright, red blood in stools, black,tarry stools, loose stools, Difficulty Swallowing or other : Negative for hematuria, frequent nighttime urination/ nocturia, erectile dysfunction or abnormal vaginal bleeding Musc Musc: Negative for muscle aches/ myalgia, muscle weakness, joint pain or balance problems Skin Skin: Negative redness, non-healing lesions, rash, unusual bruising, skin ulcer, wounds, jaundice or other Neuro Neuro: Negative for weakness, headache(s), frequent falls, blurry vision or double vision Eusebio Hematologic/Lymphatic: Negative for easy bleeding, easy bruising, enlarged lymph nodes or other Endo Endo: Negative for fatigue or excessive sweating Psych Psych: Negative for anxiety, depression, thoughts of harming anyone, thoughts of harming yourself, visual hallucinations, panic attacks or audible hallucinations Allergy Allergy/Immunology: Negative for rash, Negative for throat swelling, Negative for tongue swelling, Negative for hives, Negative for lip swelling Cardiology Exam Const Appearance: cooperative, healthy appearing, well developed, well groomed and no acute distress Nutritional Appearance: well nourished and average body habitus Orientation: alert, awake and oriented x3 Head Head: normal to inspection, normocephalic and atraumatic Ears: hearing grossly normal bilaterally and external ears normal Nose: external nose normal, nasal mucous membranes and turbinates normal, nares normal, septum normal, no nasal discharge Face and Sinus: face symmetric Mouth: oral mucosae normal, tongue normal, oropharynx normal and moist mucous membranes Teeth and gingiva: dentition normal Throat: posterior oropharynx normal, tonsils normal and uvula midline Eyes General: appearance normal, both eyes and all related structures Eyelids: eyelids normal Conjunctivae: conjunctivae normal Pupils: PERRL, normal by confrontation and accommodation normal EOM: EOM intact bilaterally Neck Neck: normal visual inspection, trachea midline and no JVD JVD: +5 Carotids: normal carotid upstroke and bounding pulses Chest Chest inspection: normal inspection of the chest, symmetric chest movement and normal respiratory effort Auscultation: Bilateral: Clear to Auscultation Cardio Palpation: normal PMI Rate: regular rate Rhythm: regular rhythm Heart sounds: S1 normal, S2 normal and normal, physiologic split S2; negative rub, gallop or murmur GI GI: normal to inspection, soft, no hepatosplenomegaly and bowel sounds present Neuro General: alert, awake, oriented x3, no focal sensory deficit, gait normal and moves all extremities Skin Skin: no rashes or lesions noted Extremities Pulses: Normal: Right Femoral Pulse, Left Femoral Pulse, Right Dorsalis Pedis Pulse, Left Dorsalis Pedis Pulse, Right Posterior Tibial Pulse, Left Posterior Tibial Pulse, Right Radial Pulse, Left Radial Pulse Lower Extremity Edema: None: Bilateral Musculoskel Musculoskeletal: No joint tenderness Psych Psychological: normal affect Assessment AND Plan 1. Stented coronary artery Z95.5 PTCA with ANSHU to mid CFX and AV groove of CFX 10/2006 Plan He continues to do remarkably well on the current medical therapy and my recommendation is for him to remain on his aspirin beta christen as well as Plavix. I would not suggest that we make any changes. 2. Essential hypertension I10 Plan He remains on the beta-christen as well as a low-dose JEET inhibitor. His blood pressure has been under excellent control and once again I would not recommend that we make any changes. His gated ejection fraction by gated SPECT was noted to be 67%. 3. Pure hypercholesterolemia E78.00; E78.0 Plan His most recent lipid profile was excellent on his current high intensity statin his total cholesterol 120 HDL 49 and LDL 54. Triglycerides were normal. No changes were made I will like to see him again in approximately a year. Thank you for allowing me to participate in his care. 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 He will give us a call to notify us. 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) Coding Level of Care Code Off vis,est,level 3 Diagnoses Stented coronary artery Z95.5 Essential hypertension I10 Hypertension type: essential hypertension Pure hypercholesterolemia E78.00; E78.0 Hyperlipidemia type: pure hypercholesterolemia Coding Level of Care Code Off vis,est,level 3 Diagnoses Stented coronary artery Z95.5 Essential hypertension I10 Hypertension type: essential hypertension Pure hypercholesterolemia E78.00; E78.0 Hyperlipidemia type: pure hypercholesterolemia 07/23/17 1624 <Electronically signed by Tyrone Hi MD> Date Tyrone Hi MD Cosigner Signature: Date (if applicable) CC: Shelby Arce DO Shelby Arce Start: 12-31-2016 End: 07-12-2017 *Hepatic Function Panel Tyrone Hi MD Start: 12-31-2016 End: 07-15-2017 Lipid panel [AGGREGATE] Tyrone Hi MD Start: 07-20-2016 End: 07-20-2016 COLOR LABORATORY TECHNICIAN Tyrone Hi MD Start: 07-20-2016 End: 07-20-2016 Follow Up Appt 1 year Tyrone Hi MD Start: 06-29-2016 End: 07-03-2016 *Hepatic Function Panel Tyrone Hi MD Start: 06-29-2016 End: 07-03-2016 Lipid panel [AGGREGATE] Tyrone Hi MD Start: 01-20-2016 End: 01-21-2016 Nuclear Stress Test - Treadmil Comments: See Note; NOTES: [facility] [address] [place] [address] Verdana 4d Nuclear Stress Test - Treadmil MR#: [id number] Acct: [id number] Name: DIMPLE LOPEZ Yaw Rep #: [id number] : 1960 55 From: Tyrone Hi MD Primary Care: Yazmin DEWITTShelby Status: REG CLI Ordering Dr: Aziza Armijo Sex: M C DATE OF SERVICE: PREEMPLOYMENT STRESS TEST: A 55-year-old man with a history of coronary artery disease. MEDICATIONS: Atorvastatin, Plavix, ramipril, metoprolol and aspirin. Resting EKG demonstrates sinus bradycardia with a rate of 51 beats per minute. Normal intervals are noted. Resting blood pressure was 102/60. STRESS TEST: The patient exercised according to a regular Dawit protocol for a total duration of 11 minutes, completing 2 minutes into stage 4 of the Dawit protocol. The maximum heart rate attained was 150 beats per minute, which was 89% of maximum predicted heart rate and maximum workload attained was 13.4 METS. At rest, there were no ST or T-wave changes noted to suggest ischemia. At peak exercise, upsloping ST changes were noted, which did not meet the criteria for ischemia. No clinical angina was noted. The test was terminated due to completion of exercise. Resting blood pressure was 102/060. Peak blood pressure was 156/72. Rate pressure product was 23,400. MYOCARDIAL PERFUSION PROTOCOL: 10.0 mCi of sestamibi was injected at rest. The patient exercised according to a regular Dawit protocol for 11 minutes, attaining 89% of maximum predicted heart rate and workload of 13.4 METS. At peak exercise, 35.0 mCi of sestamibi was injected. Stress images were obtained. Stress and rest images were reconstructed and compared in the short axis, vertical long and horizontal long axes. Gated images were also obtained. PERFUSION SPECT ANALYSIS: Review of the images demonstrate normal uptake of tracer noted in all areas of the myocardium. The resting images similarly demonstrated normal uptake of tracer noted in all areas of the myocardium. No areas of reversibility are noted to suggest ischemia. GATED SPECT ANALYSIS: The gated ejection fraction is noted to be 67%. CONCLUSION: 1. Normal exercise myocardial perfusion stress test at a high workload. 2. Preserved ejection fraction. 3. Excellent functional work capacity. Tyrone Hi MD T: NTS JOB: [id number] 01/21/16 0932 <Electronically signed by Tyrone Hi MD> Date Tyrone Hi MD CC: Shelby Armijo Date Dictated: 01/20/169 Date Transcribed: 01/20/161118 Link Fabric Machine Operator: Signed Shelby Arce Start: 01-10-2016 End: 01-20-2016 Nuclear stress test -exercise Aziza Armijo PA-C Work Phone: Start: 12-23-2015 End: 12-28-2015 *Hepatic Function Panel Tyrone Hi MD Start: 12-23-2015 End: 12-28-2015 Lipid panel [AGGREGATE] Tyrone Hi MD Start: 07-08-2015 End: 07-08-2015 SVEN Hi MD Start: 07-08-2015 End: 07-08-2015 Follow Up Appt 1 year Tyrone Hi MD Start: 06-13-2015 End: 06-24-2015 *Hepatic Function Panel Tyrone Hi MD Start: 06-13-2015 End: 06-24-2015 Lipid panel [AGGREGATE] Tyrone Hi MD Start: 06-29-2014 End: 06-29-2014 SVEN Hi MD Start: 06-29-2014 End: 06-30-2014 Documentation of current medications Tyrone Hi MD Start: 06-29-2014 End: 06-29-2014 Follow Up Appt 1 year Tyrone Hi MD Start: 11-10-2013 End: 06-23-2014 *Hepatic Function Panel Tyrone Hi MD Start: 11-10-2013 End: 06-23-2014 Lipid panel [AGGREGATE] Tyrone Hi MD Start: 07-03-2013 End: 07-15-2013 Nuclear stress test -exercise Tyrone Hi MD Start: 10-11-2012 End: 05-26-2013 *Hepatic Function Panel Tal Dixon MD Start: 10-11-2012 End: 05-26-2013 Lipid panel [AGGREGATE] Tal Dixon MD Start: 03-13-2012 End: 04-30-2012 *Hepatic Function Panel Tal Dixon MD Start: 03-13-2012 End: 04-30-2012 Lipid panel [AGGREGATE] Tal Dixon MD Start: 09-10-2011 End: 09-24-2011 *Hepatic Function Panel Tal Dixon MD Start: 09-10-2011 End: 09-24-2011 Lipid panel [AGGREGATE] Tal Dixon MD Start: 06-27-2011 End: 06-27-2011 Follow Up Appt 6 months Tal Dixon MD Cardiac sx Bishnu Maria Cardiac sx Juanisprudence Goncalves PN Vasectomy Bishnu Maria Vasectomy Juanis Goncalves PN Plan of Treatment Date Care Activity Detail Author Start: 11-14-2021 Culture bct isol&prsmptv id isolate ea urine URINE DENISE CULTURE-IDENTIFICATN (46609) [facility]; [facility] Work Phone: Start: 11-06-2021 Urnls dip stick/tablet rgnt non-auto w/o micrscp Urinalysis, Office (45553) [facility]; [facility] Work Phone: Start: 07-06-2021 Provider Instructions for Treatment [facility]; [facility] Work Phone: Start: 03-22-2021 Procedure Education Eprescribed prescriptions (G8553) [facility]; [facility] Work Phone: Start: 03-22-2021 Provider Instructions for Treatment [facility]; [facility] Work Phone: Start: 07-18-2020 Procedure Education Eprescribed prescriptions (G8553) [facility]; [facility] Work Phone: Start: 07-18-2020 Provider Instructions for Treatment Follow up if no improvement or if symptoms worsen [facility]; [facility] Work Phone: Start: 04-17-2019 Procedure Education Eprescribed prescriptions (G8553) [facility]; [facility] Work Phone: Start: 04-17-2019 Provider Instructions for Treatment [facility]; [facility] Work Phone: Start: 04-17-2019 Lipoprotein blood roxie numbers & subclasses NMR Profile (30995) [facility]; [facility] Work Phone: Start: 04-17-2019 Assay of thyroid stimulating hormone tsh TSH (51921) [facility]; [facility] Work Phone: Start: 04-17-2019 TSH Qn TSH (04174) [facility]; [facility] Work Phone: Start: 04-17-2019 Urine albumin quantitative MICROALBUMIN: CREATININE RATIO (82059) AND (66885) [facility]; [facility] Work Phone: Start: 04-17-2019 Comprehensive metabolic panel METABOLIC PANEL, COMPREHENSIVE (15517) [facility]; [facility] Work Phone: Start: 04-17-2019 Blood count complete auto&auto difrntl wbc CBC W/AUTO DIFF WBC (87212) [facility]; [facility] Work Phone: Start: 04-17-2019 Assay of prostate specific antigen total PSA (PROSTATE SPECIFIC ANTIGEN) (V76.44) [facility]; [facility] Work Phone: Start: 07-23-2017 End: 07-23-2017 Appointment Appointment [facility] Work Phone: Start: 12-31-2016 End: 07-12-2017 *Hepatic Function Panel *Hepatic Function Panel Harman Hear t [facility] Work Phone: Start: 12-31-2016 End: 07-15-2017 Lipid panel [AGGREGATE] *Lipid Profile CC PCP [facility] Work Phone: Start: 07-20-2016 End: 07-20-2016 COLOR LABORATORY TECHNICIAN COLOR LABORATORY TECHNICIAN [facility] Work Phone: Start: 07-20-2016 End: 07-20-2016 Follow Up Appt 1 year Follow Up Appt 1 year [facility] Work Phone: Start: 06-29-2016 End: 07-03-2016 *Hepatic Function Panel *Hepatic Function Panel [facility] Work Phone: Start: 06-29-2016 End: 07-03-2016 Lipid panel [AGGREGATE] *Lipid Profile CC PCP [facility] Work Phone: Start: 01-12-2016 Provider Instructions for Treatment [facility] Work Phone: Start: 01-10-2016 End: 01-11-2016 Nuclear stress test -exercise Nuclear stress test -exercise [facility] Work Phone: Start: 12-23-2015 End: 12-28-2015 *Hepatic Function Panel *Hepatic Function Panel [facility] Work Phone: Start: 12-23-2015 End: 12-28-2015 Lipid panel [AGGREGATE] *Lipid Profile CC PCP [facility] Work Phone: Start: 07-08-2015 End: 07-08-2015 COLOR LABORATORY TECHNICIAN COLOR LABORATORY TECHNICIAN [facility] Work Phone: Start: 07-08-2015 End: 07-08-2015 Follow Up Appt 1 year Follow Up Appt 1 year [facility] Work Phone: Start: 06-13-2015 End: 06-24-2015 *Hepatic Function Panel *Hepatic Function Panel [facility] Work Phone: Start: 06-13-2015 End: 06-24-2015 Lipid panel [AGGREGATE] *Lipid Profile CC PCP [facility] Work Phone: Start: 06-29-2014 End: 06-29-2014 COLOR LABORATORY TECHNICIAN COLOR LABORATORY TECHNICIAN [facility] Work Phone: Start: 06-29-2014 End: 06-29-2014 Follow Up Appt 1 year Follow Up Appt 1 year [facility] Work Phone: Start: 11-10-2013 End: 06-23-2014 *Hepatic Function Panel *Hepatic Function Panel [facility] Work Phone: Start: 11-10-2013 End: 06-23-2014 Lipid panel [AGGREGATE] *Lipid Profile CC PCP [facility] Work Phone: Start: 07-03-2013 End: 07-03-2013 Follow Up Appt 6 months Follow Up Appt 6 months [facility] Work Phone: Start: 07-03-2013 End: 07-03-2013 MMM MMM [facility] Work Phone: Start: 07-03-2013 End: 07-06-2013 Nuclear stress test -exercise Nuclear stress test -exercise [facility] Work Phone: Start: 10-11-2012 End: 05-26-2013 *Hepatic Function Panel *Hepatic Function Panel [facility] Work Phone: Start: 10-11-2012 End: 05-26-2013 Lipid panel [AGGREGATE] *Lipid Profile [facility] Work Phone: Start: 03-13-2012 End: 04-30-2012 *Hepatic Function Panel *Hepatic Function Panel [facility] Work Phone: Start: 03-13-2012 End: 04-30-2012 Lipid panel [AGGREGATE] *Lipid Profile [facility] Work Phone: Start: 09-10-2011 End: 09-24-2011 *Hepatic Function Panel *Hepatic Function Panel [facility] Work Phone: Start: 09-10-2011 End: 09-24-2011 Lipid panel [AGGREGATE] *Lipid Profile [facility] Work Phone: Start: 06-27-2011 End: 06-27-2011 Follow Up Appt 6 months Follow Up Appt 6 months [facility] Work Phone: Patient Education HYPERLIPIDEMIA , HYPERTENSION, CHEST%20PAIN, LIPID%20PROFILE [facility] Work Phone: [facility] Work Phone: [facility] Work Phone: [facility] Work Phone: [facility] Work Phone: Payers Date Payer Category Payer Policy ID Unknown [employer]/BS Social History Date Type Detail Facility Alcohol Use: Alcohol Use: [facility] Work Phone: Clinical Notes Note Date & Type Note Facility [facility] Work Phone: Instructions* Name Dates Details Patient Instructions Indication:Non-smoker Start:22-Mar-2021 Instruction Type:Provider Instructions for Treatment How to Access Health Informa tion Online using Patient Portal and [employer] Apps Indication:Non-smoker Start:22-Mar-2021 Instruction Type:Patient Education Patient Instructions Indication:BMI 25.0-25.9,adult Start:18-Jul-2020 Instruction Type:Provider Instructions for Treatment How to Access Health Informa tion Online using Patient Portal and [employer] Apps Indication:BMI 25.0-25.9,adult Start:18-Jul-2020 Instruction Type:Patient Education How to access health informa tion online Indication:Non-smoker Start:17-Apr-2019 Instruction Type:Patient Education How to access health informa tion online - Detail Indication:Non-smoker Start:17-Apr-2019 Instruction Type:Patient Education Patient Instructions Indication:Non-smoker Start:17-Apr-2019 Instruction Type:Provider Instructions for Treatment [facility] Work Phone: Instructions* Name Dates Details Patient Instructions Indication:Non-smoker Start:22-Mar-2021 Instruction Type:Provider Instructions for Treatment How to Access Health Informa tion Online using Patient Portal and [employer]rd [employer] Apps Indication:Non-smoker Start:22-Mar-2021 Instruction Type:Patient Education Patient Instructions Indication:BMI 25.0-25.9,adult Start:18-Jul-2020 Instruction Type:Provider Instructions for Treatment How to Access Health Informa tion Online using Patient Portal and [employer]rd [employer] Apps Indication:BMI 25.0-25.9,adult Start:18-Jul-2020 Instruction Type:Patient Education How to access health informa tion online Indication:Non-smoker Start:17-Apr-2019 Instruction Type:Patient Education How to access health informa tion online - Detail Indication:Non-smoker Start:17-Apr-2019 Instruction Type:Patient Education Patient Instructions Indication:Non-smoker Start:17-Apr-2019 Instruction Type:Provider Instructions for Treatment [facility]; [facility] Work Phone: instructions* Name Dates Details Patient Instructions Indication:Non-smoker Start:22-Mar-2021 Instruction Type:Provider Instructions for Treatment How to Access Health Informa tion Online using Patient Portal and [employer]rd [employer] Apps Indication:Non-smoker Start:22-Mar-2021 Instruction Type:Patient Education Patient Instructions Indication:BMI 25.0-25.9,adult Start:18-Jul-2020 Instruction Type:Provider Instructions for Treatment How to Access Health Informa tion Online using Patient Portal and [employer]rd [employer] Apps Indication:BMI 25.0-25.9,adult Start:18-Jul-2020 Instruction Type:Patient Education How to access health informa tion online Indication:Non-smoker Start:17-Apr-2019 Instruction Type:Patient Education How to access health informa tion online - Detail Indication:Non-smoker Start:17-Apr-2019 Instruction Type:Patient Education Patient Instructions Indication:Non-smoker Start:17-Apr-2019 Instruction Type:Provider Instructions for Treatment [facility]; [facility] Work Phone: instructions* Name Dates Details Patient Instructions Indication:Non-smoker Start:22-Mar-2021 Instruction Type:Provider Instructions for Treatment How to Access Health Informa tion Online using Patient Portal and [employer]rd [employer] Apps Indication:Non-smoker Start:22-Mar-2021 Instruction Type:Patient Education Patient Instructions Indication:BMI 25.0-25.9,adult Start:18-Jul-2020 Instruction Type:Provider Instructions for Treatment How to Access Health Informa tion Online using Patient Portal and [employer]rd [employer] Apps Indication:BMI 25.0-25.9,adult Start:18-Jul-2020 Instruction Type:Patient Education How to access health informa tion online Indication:Non-smoker Start:17-Apr-2019 Instruction Type:Patient Education How to access health informa tion online - Detail Indication:Non-smoker Start:17-Apr-2019 Instruction Type:Patient Education Patient Instructions Indication:Non-smoker Start:17-Apr-2019 Instruction Type:Provider Instructions for Treatment [facility]; [facility] Work Phone: instructions* Name Dates Details Patient Instructions Indication:Non-smoker Start:22-Mar-2021 Instruction Type:Provider Instructions for Treatment How to Access Health Informa tion Online using Patient Portal and [employer]rd [employer] Apps Indication:Non-smoker Start:22-Mar-2021 Instruction Type:Patient Education Patient Instructions Indication:BMI 25.0-25.9,adult Start:18-Jul-2020 Instruction Type:Provider Instructions for Treatment How to Access Health Informa tion Online using Patient Portal and [employer]rd [employer] Apps Indication:BMI 25.0-25.9,adult Start:18-Jul-2020 Instruction Type:Patient Education How to access health informa tion online Indication:Non-smoker Start:17-Apr-2019 Instruction Type:Patient Education How to access health informa tion online - Detail Indication:Non-smoker Start:17-Apr-2019 Instruction Type:Patient Education Patient Instructions Indication:Non-smoker Start:17-Apr-2019 Instruction Type:Provider Instructions for Treatment [facility]; [facility] Work Phone: instructions* Name Dates Details Patient Instructions Indication:Non-smoker Start:22-Mar-2021 Instruction Type:Provider Instructions for Treatment How to Access Health Informa tion Online using Patient Portal and [employer]rd [employer] Apps Indication:Non-smoker Start:22-Mar-2021 Instruction Type:Patient Education Patient Instructions Indication:BMI 25.0-25.9,adult Start:18-Jul-2020 Instruction Type:Provider Instructions for Treatment How to Access Health Informa tion Online using Patient Portal and [employer]rd [employer] Apps Indication:BMI 25.0-25.9,adult Start:18-Jul-2020 Instruction Type:Patient Education How to access health informa tion online Indication:Non-smoker Start:17-Apr-2019 Instruction Type:Patient Education How to access health informa tion online - Detail Indication:Non-smoker Start:17-Apr-2019 Instruction Type:Patient Education Patient Instructions Indication:Non-smoker Start:17-Apr-2019 Instruction Type:Provider Instructions for Treatment [facility]; [facility] Work Phone: instructions* Name Dates Details Patient Instructions Indication:Non-smoker Start:22-Mar-2021 Instruction Type:Provider Instructions for Treatment How to Access Health Informa tion Online using Patient Portal and [employer]rd [employer] Apps Indication:Non-smoker Start:22-Mar-2021 Instruction Type:Patient Education Patient Instructions Indication:BMI 25.0-25.9,adult Start:18-Jul-2020 Instruction Type:Provider Instructions for Treatment How to Access Health Informa tion Online using Patient Portal and [employer]rd [employer] Apps Indication:BMI 25.0-25.9,adult Start:18-Jul-2020 Instruction Type:Patient Education How to access health informa tion online Indication:Non-smoker Start:17-Apr-2019 Instruction Type:Patient Education How to access health informa tion online - Detail Indication:Non-smoker Start:17-Apr-2019 Instruction Type:Patient Education Patient Instructions Indication:Non-smoker Start:17-Apr-2019 Instruction Type:Provider Instructions for Treatment [facility]; [facility] Work Phone: instructions* Name Dates Details Patient Instructions Indication:Non-smoker Start:22-Mar-2021 Instruction Type:Provider Instructions for Treatment How to Access Health Informa tion Online using Patient Portal and [employer]rd [employer] Apps Indication:Non-smoker Start:22-Mar-2021 Instruction Type:Patient Education Patient Instructions Indication:BMI 25.0-25.9,adult Start:18-Jul-2020 Instruction Type:Provider Instructions for Treatment How to Access Health Informa tion Online using Patient Portal and [employer]rd [employer] Apps Indication:BMI 25.0-25.9,adult Start:18-Jul-2020 Instruction Type:Patient Education How to access health informa tion online Indication:Non-smoker Start:17-Apr-2019 Instruction Type:Patient Education How to access health informa tion online - Detail Indication:Non-smoker Start:17-Apr-2019 Instruction Type:Patient Education Patient Instructions Indication:Non-smoker Start:17-Apr-2019 Instruction Type:Provider Instructions for Treatment [facility]; [facility] Work Phone: instructions* Name Dates Details Patient Instructions Indication:Non-smoker Start:22-Mar-2021 Instruction Type:Provider Instructions for Treatment How to Access Health Informa tion Online using Patient Portal and [employer]rd [employer] Apps Indication:Non-smoker Start:22-Mar-2021 Instruction Type:Patient Education Patient Instructions Indication:BMI 25.0-25.9,adult Start:18-Jul-2020 Instruction Type:Provider Instructions for Treatment How to Access Health Informa tion Online using Patient Portal and [employer]rd [employer] Apps Indication:BMI 25.0-25.9,adult Start:18-Jul-2020 Instruction Type:Patient Education How to access health informa tion online Indication:Non-smoker Start:17-Apr-2019 Instruction Type:Patient Education How to access health informa tion online - Detail Indication:Non-smoker Start:17-Apr-2019 Instruction Type:Patient Education Patient Instructions Indication:Non-smoker Start:17-Apr-2019 Instruction Type:Provider Instructions for Treatment [facility]; [facility] Work Phone: [employer]* Name Dates Details Patient Instructions Indication:Non-smoker Start:22-Mar-2021 Instruction Type:Provider Instructions for Treatment How to Access Health Informa tion Online using Patient Portal and [employer]rd [employer] Apps Indication:Non-smoker Start:22-Mar-2021 Instruction Type:Patient Education Patient Instructions Indication:BMI 25.0-25.9,adult Start:18-Jul-2020 Instruction Type:Provider Instructions for Treatment How to Access Health Informa tion Online using Patient Portal and [employer]rd [employer] Apps Indication:BMI 25.0-25.9,adult Start:18-Jul-2020 Instruction Type:Patient Education How to access health informa tion online Indication:Non-smoker Start:17-Apr-2019 Instruction Type:Patient Education How to access health informa tion online - Detail Indication:Non-smoker Start:17-Apr-2019 Instruction Type:Patient Education Patient Instructions Indication:Non-smoker Start:17-Apr-2019 Instruction Type:Provider Instructions for Treatment [facility]; [facility] Work Phone: instructions* Name Dates Details Patient Instructions Indication:Non-smoker Start:22-Mar-2021 Instruction Type:Provider Instructions for Treatment How to Access Health Informa tion Online using Patient Portal and [employer]rd [employer] Apps Indication:Non-smoker Start:22-Mar-2021 Instruction Type:Patient Education Patient Instructions Indication:BMI 25.0-25.9,adult Start:18-Jul-2020 Instruction Type:Provider Instructions for Treatment How to Access Health Informa tion Online using Patient Portal and [employer]rd [employer] Apps Indication:BMI 25.0-25.9,adult Start:18-Jul-2020 Instruction Type:Patient Education How to access health informa tion online Indication:Non-smoker Start:17-Apr-2019 Instruction Type:Patient Education How to access health informa tion online - Detail Indication:Non-smoker Start:17-Apr-2019 Instruction Type:Patient Education Patient Instructions Indication:Non-smoker Start:17-Apr-2019 Instruction Type:Provider Instructions for Treatment [facility]; [facility] Work Phone: instructions* Name Dates Details Patient Instructions Indication:Non-smoker Start:22-Mar-2021 Instruction Type:Provider Instructions for Treatment How to Access Health Informa tion Online using Patient Portal and [employer] Apps Indication:Non-smoker Start:22-Mar-2021 Instruction Type:Patient Education Patient Instructions Indication:BMI 25.0-25.9,adult Start:18-Jul-2020 Instruction Type:Provider Instructions for Treatment How to Access Health Informa tion Online using Patient Portal and [employer]rd [employer] Apps Indication:BMI 25.0-25.9,adult Start:18-Jul-2020 Instruction Type:Patient Education How to access health informa tion online Indication:Non-smoker Start:17-Apr-2019 Instruction Type:Patient Education How to access health informa tion online - Detail Indication:Non-smoker Start:17-Apr-2019 Instruction Type:Patient Education Patient Instructions Indication:Non-smoker Start:17-Apr-2019 Instruction Type:Provider Instructions for Treatment [facility]; [facility] Work Phone: instructions* Name Dates Details Patient Instructions Indication:Non-smoker Start:22-Mar-2021 Instruction Type:Provider Instructions for Treatment How to Access Health Informa tion Online using Patient Portal and [employer] Apps Indication:Non-smoker Start:22-Mar-2021 Instruction Type:Patient Education Patient Instructions Indication:BMI 25.0-25.9,adult Start:18-Jul-2020 Instruction Type:Provider Instructions for Treatment How to Access Health Informa tion Online using Patient Portal and [employer]rd [employer] Apps Indication:BMI 25.0-25.9,adult Start:18-Jul-2020 Instruction Type:Patient Education How to access health informa tion online Indication:Non-smoker Start:17-Apr-2019 Instruction Type:Patient Education How to access health informa tion online - Detail Indication:Non-smoker Start:17-Apr-2019 Instruction Type:Patient Education Patient Instructions Indication:Non-smoker Start:17-Apr-2019 Instruction Type:Provider Instructions for Treatment [facility]; [facility] Work Phone: instructions* Name Dates Details Patient Instructions Indication:Non-smoker Start:22-Mar-2021 Instruction Type:Provider Instructions for Treatment How to Access Health Informa tion Online using Patient Portal and [employer] Apps Indication:Non-smoker Start:22-Mar-2021 Instruction Type:Patient Education Patient Instructions Indication:BMI 25.0-25.9,adult Start:18-Jul-2020 Instruction Type:Provider Instructions for Treatment How to Access Health Informa tion Online using Patient Portal and [employer]rd [employer] Apps Indication:BMI 25.0-25.9,adult Start:18-Jul-2020 Instruction Type:Patient Education How to access health informa tion online Indication:Non-smoker Start:17-Apr-2019 Instruction Type:Patient Education How to access health informa tion online - Detail Indication:Non-smoker Start:17-Apr-2019 Instruction Type:Patient Education Patient Instructions Indication:Non-smoker Start:17-Apr-2019 Instruction Type:Provider Instructions for Treatment [facility]; [facility] Work Phone: instructions* Name Dates Details Patient Instructions Indication:Non-smoker Start:22-Mar-2021 Instruction Type:Provider Instructions for Treatment How to Access Health Informa tion Online using Patient Portal and [employer]rd [employer] Apps Indication:Non-smoker Start:22-Mar-2021 Instruction Type:Patient Education Patient Instructions Indication:BMI 25.0-25.9,adult Start:18-Jul-2020 Instruction Type:Provider Instructions for Treatment How to Access Health Informa tion Online using Patient Portal and [employer]rd [employer] Apps Indication:BMI 25.0-25.9,adult Start:18-Jul-2020 Instruction Type:Patient Education How to access health informa tion online Indication:Non-smoker Start:17-Apr-2019 Instruction Type:Patient Education How to access health informa tion online - Detail Indication:Non-smoker Start:17-Apr-2019 Instruction Type:Patient Education Patient Instructions Indication:Non-smoker Start:17-Apr-2019 Instruction Type:Provider Instructions for Treatment [facility]; [facility] Work Phone: Instructions* Name Dates Details Patient Instructions Indication:Non-smoker Start:22-Mar-2021 Instruction Type:Provider Instructions for Treatment How to Access Health Informa tion Online using Patient Portal and [employer] Apps Indication:Non-smoker Start:22-Mar-2021 Instruction Type:Patient Education Patient Instructions Indication:BMI 25.0-25.9,adult Start:18-Jul-2020 Instruction Type:Provider Instructions for Treatment How to Access Health Informa tion Online using Patient Portal and [employer] Apps Indication:BMI 25.0-25.9,adult Start:18-Jul-2020 Instruction Type:Patient Education How to access health informa tion online Indication:Non-smoker Start:17-Apr-2019 Instruction Type:Patient Education How to access health informa tion online - Detail Indication:Non-smoker Start:17-Apr-2019 Instruction Type:Patient Education Patient Instructions Indication:Non-smoker Start:17-Apr-2019 Instruction Type:Provider Instructions for Treatment [facility]; [facility] Work Phone: Family History Unknown Family Member Name Dates Details Heart Disease Comments:Maternal Grandmothe r. Status:Active Hypercholesterolemia Comments:Mother. Status:Active Unknown Family Member Name Dates Details Heart Disease Comments:Maternal Grandmothe r. Status:Active Hypercholesterolemia Comments:Mother. Status:Active Unknown Family Member Name Dates Details Heart Disease Comments:Maternal Grandmothe r. Status:Active Hypercholesterolemia Comments:Mother. Status:Active Unknown Family Member Name Dates Details Heart Disease Comments:Maternal Grandmothe r. Status:Active Hypercholesterolemia Comments:Mother. Status:Active Unknown Family Member Name Dates Details Heart Disease Comments:Maternal Grandmothe r. Status:Active Hypercholesterolemia Comments:Mother. Status:Active Unknown Family Member Name Dates Details Heart Disease Comments:Maternal Grandmothe r. Status:Active Hypercholesterolemia Comments:Mother. Status:Active Unknown Family Member Name Dates Details Heart Disease Comments:Maternal Grandmothe r. Status:Active Hypercholesterolemia Comments:Mother. Status:Active Unknown Family Member Name Dates Details Heart Disease Comments:Maternal Grandmothe r. Status:Active Hypercholesterolemia Comments:Mother. Status:Active Unknown Family Member Name Dates Details Heart Disease Comments:Maternal Grandmothe r. Status:Active Hypercholesterolemia Comments:Mother. Status:Active Unknown Family Member Name Dates Details Heart Disease Comments:Maternal Grandmothe r. Status:Active Hypercholesterolemia Comments:Mother. Status:Active Unknown Family Member Name Dates Details Heart Disease Comments:Maternal Grandmothe r. Status:Active Hypercholesterolemia Comments:Mother. Status:Active Unknown Family Member Name Dates Details Heart Disease Comments:Maternal Grandmothe r. Status:Active Hypercholesterolemia Comments:Mother. Status:Active Unknown Family Member Name Dates Details Heart Disease Comments:Maternal Grandmothe r. Status:Active Hypercholesterolemia Comments:Mother. Status:Active Unknown Family Member Name Dates Details Heart Disease Comments:Maternal Grandmothe r. Status:Active Hypercholesterolemia Comments:Mother. Status:Active Unknown Family Member Name Dates Details Heart Disease Comments:Maternal Grandmothe r. Status:Active Hypercholesterolemia Comments:Mother. Status:Active Unknown Family Member Name Dates Details Heart Disease Comments:Maternal Grandmothe r. Status:Active Hypercholesterolemia Comments:Mother. Status:Active Unknown Family Member Name Dates Details Heart Disease Comments:Maternal Grandmothe r. Status:Active Hypercholesterolemia Comments:Mother. Status:Active Unknown Family Member Name Dates Details Heart Disease Comments:Maternal Grandmothe r. Status:Active Hypercholesterolemia Comments:Mother. Status:Active Instructions Name Dates Details Patient Instructions Indication:BMI 25.0-25.9,adult Start:18-Jul-2020 Instruction Type:Provider Instructions for Treatment How to Access Health Informa tion Online using Patient Portal and [employer] Apps Indication:BMI 25.0-25.9,adult Start:18-Jul-2020 Instruction Type:Patient Edu cation How to access health informa tion online Indication:Non-smoker Start:17-Apr-2019 Instruction Type:Patient Edu cation How to access health informa tion online - Detail Indication:Non-smoker Start:17-Apr-2019 Instruction Type:Patient Edu cation Patient Instructions Indication:Non-smoker Start:17-Apr-2019 Instruction Type:Provider Instructions for Treatment Additional Source Comments FOR RECORDS PERTAINING TO PATIENTS WHO ARE OR HAVE BEEN ENROLLED IN A CHEMICAL DEPENDENCY/SUBSTANCEABUSE PROGRAM, SOME INFORMATION MAY BE OMITTED. This clinical summary was aggregated from multiple sources. Caution should be exercised in using it in the provision of clinical care. This summary normalizes information from multiple sources, and as a consequence, information in this document may materially change the coding, format and clinical context of patient data. In addition, data may be omitted in some cases. CLINICAL DECISIONS SHOULD BE BASED ON THE PRIMARY CLINICAL RECORDS. [employer] provides no warranty or guarantee of the accuracy or completeness of information in this document.
[2023-05-23 09:40] LABS: PSA,Total- Diagnostic < 0.01 ng/mL (0.0-4.0)
== END | disposition home or self-care (01) ==
LOC: LAB 08:22
PROVIDERS: PCP Internal Medicine; Referring Provider Nurse Practitioner; Visit Provider Nurse Practitioner
DX: C61 Malignant neoplasm of prostate (principal)
CPT/HCPCS: 36415; 84153

== ENCOUNTER 2023-05-29 23:53 | Emergency (ER) | payer BC, SELFPAY ==
[2023-05-29 23:56] VITALS: BP 174/81; PULSE 78; RESP 18; TEMP 36.6; O2SAT 95; BMI 26.7
[2023-05-30] VITALS (16 sets, daily range): BP systolic 124–153; BP diastolic 63–82; PULSE 70–81; RESP 16–28; O2SAT 92–96
--- NOTE | 2023-05-30 00:07 | EKG12_ITS ---
Test Reason : CHEST OTHER Blood Pressure : / mmHG Vent. Rate : 071 BPM Atrial Rate : 071 BPM P-R Int : 188 ms QRS Dur : 078 ms QT Int : 364 ms P-R-T Axes : 032 002 -04 degrees QTc Int : 395 ms Normal sinus rhythm Normal ECG Confirmed by RACHEL JIMENEZ, SHREE ([id number]), video tape editor PRANAY ESCOBAR ([id number]) on 05/31/2023 9:49:39 AM Referred By: Confirmed By:SHREE RAMOS MD
--- NOTE | 2023-05-30 00:07 | EX.ED.DYSGE1 ---
HPI History of Present Illness Chief Complaint: Chest Other Informant: patient Narrative Narrative: 62-year-old male presented to the emergency room with COVID-19 and dyspnea. The patient reports that last week he developed body aches feeling rundown and then later fever. He tested positive for COVID-19 held his Plavix and started Paxlovid. He states that yesterday was his last day of Paxlovid. Today he states he feels some shortness of breath and feels some discomfort in the lower mid axillary posterior ribs when he breathes. No discomfort when he moves around. Feels little bit more rundown. He has had some nasal congestion/rhinorrhea over the past 3 weeks as has his . No vomiting or diarrhea. Patient denies any significant cough but does note some. He is not oxygen dependent. He has a history of coronary artery disease and had his had a DVT postoperatively in August 01. He is subsequently off anticoagulants. He notes a additional history of hypertension hyperlipidemia and prostate cancer. [facility] Medical History Atherosclerotic heart disease of [place] coronary artery without angina pectoris Cancer Chest pain Deep vein thrombophlebitis of right leg (07/21/21) Essential (primary) hypertension History of heart attack History of stress test Hyperlipidemia Hypertension Palpitations Prostate disease Wears glasses Home Medications aspirin 81 mg tablet,delayed release (Adult Aspirin Regimen) 81 mg PO DAILY 08/02/21 [History Last Taken Unknown] atorvastatin 80 mg tablet See Rx Instructions .Route .COMPLEX #90 tabs 10/01/22 [Rx Last Taken Unknown] metoprolol tartrate 25 mg tablet See Rx Instructions .Route .COMPLEX #180 tabs 10/01/22 [Rx Last Taken Unknown] apixaban 5 mg (74 tabs) tablets in a dose pack (Eliquis DVT-PE Treat 30D Start) 5 mg PO BID #74 tabs 05/30/23 [Rx Last Taken Unknown] clopidogrel 75 mg tablet 75 mg PO DAILY 05/30/23 [History Last Taken Unknown] oxycodone-acetaminophen 5 mg-325 mg tablet 1 tab PO Q6H PRN PRN Pain 3 days #12 TABLETS 05/30/23 [Rx Last Taken Unknown] Allergy/AdvReac Type Severity Reaction Status Date / Time No Known Allergies Allergy Verified 05/29/23 23:55 Family History Father Mitral valve regurgitation Congestive heart failure Surgical History History of coronary artery stent placement (10/2006) History of dental surgery History of left heart catheterization (05/21/07) History of right inguinal hernia repair History of vasectomy Hx of prostatectomy (06/23/21) Social History household members: spouse Smoking Status: Former smoker pack-years: 20 substance use type: does not use ROS ROS ED Constitutional Constitutional ED: Reports fever(s); Denies chills or weight loss Eyes Eyes: Denies change in vision or diplopia ENT ENT ED: Reports rhinorrhea; Denies ear pain or sore throat Cardiovascular Cardiovascular: Reports chest pain; Denies orthopnea, palpitations or racing heartbeat Respiratory/Chest Respiratory/Chest: Reports cough and dyspnea; Denies orthopnea Gastrointestinal Gastrointestinal: Denies abdominal pain, diarrhea, nausea or vomiting Genitourinary Genitourinary ED: Denies dysuria, hematuria or urinary frequency Musculoskeletal Musculoskeletal: Reports myalgias; Denies arthralgias Integumentary Denies abscess or rash Neurologic Neurologic: Denies headache(s) or weakness Psychiatric Psychiatric: Denies anxiety, depression, suicidal ideation or suicidal thoughts Endocrine Endocrinology: Denies polydipsia, polyphagia or polyuria Allergic/Immunologic Allergic/Immunologic ED: Denies mouth swelling, tongue swelling or urticaria EXAM Physical Exam Const Vital Signs: 05/29/23 23:56 05/30/23 00:02 05/30/23 00:17 Temperature 97.8 F Temperature Source Temporal Pulse Rate 78 73 Respiratory Rate 18 16 Respiratory Effort Short of Breath Respiratory Pattern Normal Blood Pressure 174/81 H 135/76 H Blood Pressure Mean 112 95 Pulse Ox 95 95 Oxygen Delivery Method Room Air Room Air 05/30/23 01:02 05/30/23 01:14 05/30/23 01:15 Temperature Temperature Source Pulse Rate 73 73 Respiratory Rate 22 H 27 H Respiratory Effort Respiratory Pattern Blood Pressure 124/63 H 153/82 H Blood Pressure Mean 80 103 Pulse Ox 95 96 Oxygen Delivery Method 05/30/23 01:20 05/30/23 01:30 05/30/23 01:40 Temperature Temperature Source Pulse Rate 73 70 74 Respiratory Rate 22 H 27 H 20 H Respiratory Effort Respiratory Pattern Blood Pressure 135/81 H Blood Pressure Mean 97 Pulse Ox 95 92 96 Oxygen Delivery Method Room Air 05/30/23 01:45 05/30/23 01:50 05/30/23 02:00 Temperature Temperature Source Pulse Rate 71 73 73 Respiratory Rate 28 H 28 H 26 H Respiratory Effort Respiratory Pattern Blood Pressure 137/74 H 136/81 H Blood Pressure Mean 92 96 Pulse Ox 94 93 94 Oxygen Delivery Method 05/30/23 02:10 05/30/23 02:15 05/30/23 02:20 Temperature Temperature Source Pulse Rate 76 74 81 Respiratory Rate 21 H 24 H 22 H Respiratory Effort Respiratory Pattern Blood Pressure 135/77 H Blood Pressure Mean 95 Pulse Ox 92 92 Oxygen Delivery Method Room Air Positive well nourished and well developed General Appearance ED: well developed HEENT Reports normocephalic, head/scalp atraumatic and moist mucous membranes HEENT Narrative: Nasal congestion noted Eyes PERRL and EOMs intact bilaterally Neck no lymphadenopathy, supple and no JVD Chest Wall Chest Narrative: Mild tenderness to palpation along the lower posterior mid axillary ribs on the right. No rash noted. Resp normal respiratory effort and clear to auscultation bilaterally Cardio regular rate, regular rhythm and no murmurs GI normal to inspection, nondistended, normoactive bowel sounds and non-tender Palpation: soft Back/Spine no CVA tenderness and normal ROM Extremity normal to inspection General Extremety ED: Negative for edema General Extremity: Negative for edema Neuro oriented x3 and CN's II-XII intact bilaterally Sensorium / Orientation: alert Motor Exam: strength 5/5 throughout Psych mental status grossly normal Mood & Affect: Negative for depressed or tearful Skin no rashes or lesions noted and no wounds MDM MDM MDM Narrative Medical decision making narrative: Basic blood work shows a white count 9.3 with hemoglobin 14.4. INR 0.9 PTT 49.5. D-dimer significantly elevated 1.81 is not age-adjusted. BMP glucose of 119. Liver enzymes negative. Troponin is 10. EKG is nonischemic. My independent interpretation of the chest x-ray is bibasilar atelectasis possible right lower lobe infiltrate. Because of the elevated D-dimer and the recent COVID-19 diagnosis and the pleuritic pain when he breathes a CTA of the chest was obtained. This is indeed positive for bilateral pulmonary embolism. Please see radiologist read. Patient is not tachycardic. He is 95% at rest. Patient ambulates with a pulse ox of 92%. We did write for him to have pain medication. We are also going to place him on Eliquis. He was on this before. Because he had DVT following surgery and now pulmonary embolism with COVID-19 I advised him to have a discussion with his doctor as to whether or not lifelong anticoagulation would be necessary for him. History & Record Review Discussion w/independent historian: Patient Additional record(s) reviewed:: Prior outpatient record, Prior ED visit and Prior labs Lab Data Attestation: I reviewed the patient's lab results. Labs: Laboratory Results - last 24 hr 05/30/23 05/30/23 00:15 00:19 WBC 9.3 RBC 4.58 L Hgb 14.4 Hct 42.9 MCV 93.7 MCH 31.4 MCHC 33.6 RDW Std Deviation 43.3 RDW Coeff of Neha 12.5 Plt Count 152 MPV 9.4 Immature Gran % (Auto) 1.400 H Neut % (Auto) 71.3 H Lymph % (Auto) 16.5 L Jackson % (Auto) 8.5 Eos % (Auto) 2.0 Baso % (Auto) 0.3 Absolute Neuts (auto) 6.7 Absolute Lymphs (auto) 1.54 Nucleated RBC % 0 PT 12.4 INR 0.9 APTT 49.5 H D-Dimer Quant (PE/DVT) 1.81 H* Sodium 134 L Potassium 4.2 Chloride 102 Carbon Dioxide 27.0 Anion Gap 5 BUN 18 Creatinine 1.10 Estim Creat Clear Calc 76.06 Est GFR (MDRD) Af Amer 88 Est GFR (MDRD) Non-Af 72 BUN/Creatinine Ratio 16.4 Glucose 119 H Calcium 8.6 Total Bilirubin 0.30 Direct Bilirubin 0.11 AST 18 ALT 35 Alkaline Phosphatase 80 Troponin I High Sens 10 Total Protein 7.2 Albumin 3.1 L Globulin 4.1 Radiography Diagnostic Testing: Clinical Impression(s) from Imaging Studies Chest X-Ray 05/30/23 00:15 IMPRESSION: Bibasilar atelectasis versus infiltrate. Electronically Signed: Noe Genao MD at 0:58 EST , Chest CTA 05/30/23 00:42 IMPRESSION: 1. Small moderate burden bilateral pulmonary emboli with no evidence of right-sided heart strain 2. Patchy ground glass infiltration throughout the posterior right lung base, likely inflammatory in etiology with potential associated ischemic change. 3. Shotty mediastinal, hilar and axillary lymph nodes, likely reactive in nature. Electronically Signed: Noe Genao MD at 2:11 EST , EKG Initial EKG: Attestation: I personally reviewed and interpreted this EKG as follows: Interpretation: Sinus Rhythm Comments: Normal sinus rhythm ventricular rate of 71 bpm. No concerning features of ACS noted. Discharge Plan Triage Chief Complaint: Chest Other Other Complaint: Back ED Provider: Omari Larsen Dx/Rx/DC Orders Clinical Impression: COVID-19, Essential (primary) hypertension, Atherosclerotic heart disease of [place] coronary artery without angina pectoris, Pulmonary embolism Instructions: Pulmonary Embolism Prescriptions: New Eliquis DVT-PE Treat 30D Start 5 mg (74 tabs) tablets,dose pack 5 mg PO BID Qty: 74 0RF Rx Instructions: 10 mg p.o. twice daily x 7 days then 5 mg p.o. twice daily after that oxycodone-acetaminophen [oxycodone-acetaminophen] 5-325 mg tablet 1 tab PO Q6H PRN PRN (Reason: Pain) 3 Days Qty: 12 0RF No Action clopidogrel 75 mg tablet 75 mg PO DAILY aspirin [Adult Aspirin Regimen] 81 mg tablet,delayed release (DR/EC) 81 mg PO DAILY atorvastatin 80 mg tablet See Rx Instructions .ROUTE .COMPLEX Qty: 90 3RF Dose Instruction: TAKE 1 TABLET DAILY Rx Instructions: TAKE 1 TABLET DAILY metoprolol tartrate 25 mg tablet See Rx Instructions .ROUTE .COMPLEX Qty: 180 3RF Dose Instruction: TAKE 1 TABLET TWICE A DAY Rx Instructions: TAKE 1 TABLET TWICE A DAY Primary Care Provider: Shelby Arce Referrals: Shelby Arce, DO [Primary Care Provider] - As soon as possible Disposition Disposition: Home, Self Care Capacity Legal Manager Mobile Reflex Medical hold order details:: IF a medical hold is selected below, a suggested order for a MEDICAL HOLD will reflex upon signing the document. Next of kin: [place] law dictates a PRIORITY LIST for identifying legal decision-maker/legal next of kin in the following order (LNOK): 1st: The patient?s legal guardian, if any 2nd: The patient's spouse (if status is questionable, consult Risk Management) 3rd: The patient?s adult child(mary) (majority, if multiple children) 4th: The patient?s parents 5th: The patient?s adult siblings (majority, if multiple children siblings)
--- NOTE | 2023-05-30 00:15 | RAD_ITS ---
EXAM: XR Chest 1 View INDICATION: Male, 62 years old. covid 19 dyspnea TECHNIQUE: Single AP view COMPARISON: None FINDINGS: DEVICES: None LUNGS: Patchy airspace opacities at bilateral lung bases. No concerning pulmonary nodule. No pleural effusion or pneumothorax. MEDIASTINUM: Cardiac and mediastinal silhouettes are within normal limits. No central pulmonary vascular congestion. . SKELETAL STRUCTURES: No acute skeletal abnormality. UPPER ABDOMEN: Unremarkable RAD/Chest 1 View (Portable) IMPRESSION: Bibasilar atelectasis versus infiltrate. Electronically Signed: Noe Genao MD at 0:58 EST ,
--- OUTSIDE RECORDS SUMMARY | 2023-05-30 00:31 | XMS RPT_ITS | CCD ---
Author Name Unknown Address [address] [place] [address] Organization [facility] Care Team Providers Care Cardiopulmonary Specialist Name Role Phone Jessica Melendrez RN Unavailable Unavailable Jessica Melendrez RN Unavailable Unavailable Shelby Arce Unavailable Lencho Betancur Unavailable Omari Powell Unavailable Bishnu Maria Unavailable Unavailable Hilaria Guadarrama Unavailable Unavailable Unavailable Shelby Arce DO Unavailable Yaw Castaneda MD Unavailable Dr. Lencho Betancur Unavailable Omari Powell MD Unavailable Saray GANG RIPSAW OPERATOR, Juanis Unavailable Unavailable Inna Rider MA Unavailable Unavailable Unavailable Unavailable Slarb GANG RIPSAW OPERATOR, Steffany Unavailable Unavailable Shelby Arce DO Unavailable Burt FLY WORKER, Kayela Unavailable Unavailable Gravius FLY WORKER, Aparna Unavailable Unavailable Unavailable Unavailable Juan Anthony [...] disease (20 sources) Atherosclerotic heart disease of false pass coronary artery without angina pectoris; Translations: [Acute [...] 09-12-2010 Episodic Other aftercare (2 sources) Other oysterman (current) drug therapy; Translations: [Other oysterman (current) drug therapy] Onset: 09-12-2010 09-12-2010 Episodic [...] Start: 04-16-2022 End: 04-16-2022 Phone Encounter Shelby Yazmin DO Work Phone: [...] Visit Report Procedure Note: See Note; NOTES: [facility] [address] [place] [address] OFFICE VISIT Date of Service: 09/06/22 MR#: [id number] Acct: [id number] Name: DIMPLE LOPEZ Rep #: [id number] : 1960 Provider: Dr. Tyrone Hi MD Age/Sex: 62/M Location: [facility] Status: Signed HPI HPI History of Present [...] Monitor Intake Visit Reasons: 1 Y FU Graphics Artist Required: No Accompanied by: None Is patient [...] PFSH Medical History Atherosclerotic heart disease of false pass coronary artery without angina pectoris Cancer Chest [...] Visit Report Procedure Note: See Note; NOTES: [facility] [address] [address] OFFICE VISIT Date of Service: 04/24/22 1455 MR#: [id number] Acct: [id number] Name: DIMPLE LOPEZ Rep #: [id number] : 1960 From: Juan Anthony MD Age/Sex: 61/M Location[place] [facility] Status: Signed HPI Subjective Date of [...] to know when he can stop Eliquis. [facility] Medical History Atherosclerotic heart disease of false pass coronary artery without angina pectoris Cancer Chest [...] 98 Oxygen Delivery Method room air Intake Graphics Artist Required: No Accompanied by: Self Is patient [...] vessels of right lower extremity, Z79.01 - moth exterminator (current) use of anticoagulants D-Dimer Quantitative (DVT/PE) Today I80.201 - Phlebitis and thrombophlebitis of unspecified deep vessels of right lower extremity, Z79.01 - moth exterminator (current) use of anticoagulants Prothrombin Time w/INR Today I80.201 - Phlebitis and thrombophlebitis of unspecified deep vessels of right lower extremity, Z79.01 - moth exterminator (current) use of anticoagulants CBC W/Diff, Automated Today I80.201 - Phlebitis and thrombophlebitis of unspecified deep vessels of right lower extremity, Z79.01 - longterm (current) use of anticoagulants Plan Details Follow Up: 3 Months 04/24/22 3758 <Electronically signed by Juan Anthony MD> Date Juan Anthony MD Cosigner Signature: Date (if applicable) CC: DO Shelby Saez DO Work Phone: Start: 04-16-2022 End: 04-16-2022 Venous Duplex US - Gordon Extrem Procedure Note: See Note; NOTES: [facility] Cardiovascular Services [address] [place] [address] Venous Duplex US - Gordon Extrem 04/16/22 0949 MR#: [id number] Acct: [id number] Name: DIMPLE LOPEZ Rep #: [id number] : 1960 61 From: Kris Leblanc MD [...] Date Dictated: 04/16/22 0949 Date Transcribed: 04/16/221131 Professional Volleyball Player: Clarke Arce DO Work Phone: Start: 12-22-2021 End: 08-12-2022 Venous Duplex US - Gordon Extrem Comments: See Note; NOTES: [facility] Cardiovascular Services [address] [place] [address] Venous Duplex US - Gordon Extrem 12/22/21 0956 MR#: [id number] Acct: [id number] Name: DIMPLE LOPEZ Rep #: [id number] : 1960 61 From: Kris Leblanc MD [...] Date Dictated: 12/22/21955 Date Transcribed: 12/22/21 132 Professional Volleyball Player: Clarke Arce DO Work Phone: Start: 10-31-2021 End: 10-31-2021 Urgent Care Visit Report Comments: See Note; NOTES: [facility] [address] [place] [address] OFFICE VISIT Date of Service: 10/31/21 MR#: [id number] Acct: [id number] Name: DIMPLE LOPEZ Rep #: [id number] : 1960 Provider: APRIL Salmon Age/Sex: 61/M Location: [facility] Status: Signed Intake Vital Signs 10/31/21 14:54 [...] BID #180 tabs 10/04/21 [Rx Confirmed 10/31/21] [facility] Medical History Atherosclerotic heart disease of false pass coronary artery without angina pectoris Cancer Chest [...] Exam Const General: cooperative and well developed [facility] Head: normal to inspection and atraumatic Ears: [...] 09-12-2021 Stress Report Comments: See Note; NOTES: [facility] Cardiovascular Services [address] [place] [address] MR#: [id number] Acct: [id number] Name: DIMPLE LOPEZ Rep #: [id number] : 1960 61 From: Tyrone Hi MD [...] DO Date Dictated: 09/12/211832 Date Transcribed: 09/12/211832 Professional Volleyball Player: [place] Signed Shelby Arce DO Work Phone: Start: 09-12-2021 End: 09-12-2021 Echo Complete Comments: See Note; NOTES: [facility] Cardiovascular Services [address] [place] [address] Echo Complete 09/12/21811 MR#: [id number] Acct: [id number] Name: DIMPLE LOPEZ Rep #: [id number] : 1960 61 From: Tyrone Hi MD Attending Dr: Dr. Tyrone Hi MD Status: REG Reed DILLON Ordering Dr: Tyrone Hi MD Date: 09/12/21 Location: [facility] Sex: M C Admitted: Reason For Study: [...] DO Date Dictated: 09/12/21811 Date Transcribed: 09/12/21951 Professional Volleyball Player: Signed Shelby Arce DO Work Phone: Start: 08-01-2021 End: 09-01-2021 Cardiology Visit Report Comments: See Note; NOTES: [facility] [place], [place] [address] OFFICE VISIT Date of Service: 08/01/21 MR#: [id number] Acct: [id number] Name: DIMPLE LOPEZ Rep #: [id number] : 1960 Provider: Dr. Tyrone Hi MD Age/Sex: 60/M [place] [facility]: Signed [facility] History of Present Illness Details: DIMPLE LOPEZ, [...] QDAY #90 cap 08/01/21 [Rx Confirmed 08/01/21] [facility] Medical History Atherosclerotic heart disease of false pass coronary artery without angina pectoris Cancer Chest [...] updated, as necessary. 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 Shelby Arce DO Date Dictated: 07/21/21 1512 Date Transcribed: 07/21/21 6286 Professional Volleyball Player: Signed Shelby Arce DO Work Phone: Start: 07-04-2021 End: 07-04-2021 Emergency Department Summary Comments: See Note; NOTES: [facility] Medical Records Department [address] [place] [address] Emergency Department Summary 07/04/21 MR#: [id number] Acct: [id number] Name: DIMPLE LOPEZ Rep #: [id number] : 1960 60 From: Javon Franco MD [...] Prior similar symptoms: No Recent Illness/Hospitalization: [facility] Medical History Atherosclerotic heart disease of false pass coronary artery without angina pectoris Cancer Chest [...] Primary Care Provider: Shelby Arce Referrals: Shelby Acre DO [Primary Care Provider] - 3-5 Days if not improving Disposition Disposition: Home, Self Care What to do if you have Problems For any increased pain, shortness of breath, bleeding, nausea or vomiting, chest pain, or any unexpected problems, contact your Primary Care Provider. Call [facility] ([phone]) or report to the closest Emergency Room. Call 911 if necessary. 07/04/21 2340 <Electronically signed by Javon Franco MD> Cosigner Signature (if applicable): CC: Dr. Shelby Arce DO Signed Shelby Arce DO Work Phone: Start: 07-04-2021 End: 07-04-2021 CTA Chest W/WO Contrast Comments: See Note; NOTES: [facility] Imaging Services [address] [place] [address] CTA Chest W/WO Contrast MR#: [id number] Acct: [id number] Name: DIMPLE LOPEZ Rep #: [id number] : 1960 M 60 From: Randolph Gray DO PCP: Dr. Shelby Arce DO Status: REG ER Study: CTA Chest W/WO Contrast Date of Exam: 07/04/21 Exam# [id number] Ordering Dr: Javon Franco MD STUDY: CTA [...] 23:27 EST Reading Location ID and State: [address] [place] [address] Tel [phone], Service support , CC: Dr. Shelby Arce DO; Dr. Javon Franco MD Professional Volleyball Player: Signed Shelby Arce DO Work Phone: Start: 06-23-2021 End: 06-23-2021 Operative Report Comments: See Note; NOTES: [facility] Medical Records Department [address] [place] [address] Operative Report 06/23/21 1151 MR#: [id number] Acct: [id number] Name: DIMPLE LOPEZ Rep #: [id number] : 1960 60 From: Sushil Monroy MD PCP: Dr. Shelby Arce, DO Status:REG [facility] Location: [place]3 [id number] Report of Operation Date of Procedure: 06/23/21 [...] as the penis and testicles. A 16 Tongan catheter was placed into the bladder with [...] obturator nerve and then also below the hot die press operator nerve all the lymph nodes were [...] nerve and the left side beyond the hot die press operator nerve down further behind it cleaning [...] over to the right and left needle bookmobile driver and suture ligated the dorsal vein [...] new catheter into the bladder, an 18 Tongan belkofski tip catheter flushed the bladder and there [...] minimal and the drain was a 18 Tongan Jordan catheter. No other surgical drain was [...] 06-23-2021 Discharge Instruction Comments: See Note; NOTES: [facility] Medical Records Department [address] [place] [address] Instructions for Home/Discharge Instructions 06/23/21 0744 MR#: [id number] Acct: [id number] Name: DIMPLE LOPEZ Rep #: [id number] : 1960 60 From: Sushil Monroy MD PCP: Dr. Shelby Arce, DO Status:REG [facility] Discharge Instructions Diet Discharge Diet: Light diet [...] bag and Jordan to large bag Drain: Glen Follow Up Care Please Follow Up With: Sushil Monroy MD When: Call [phone] for an appointment Test Results: Test results [...] and Physical Exam Comments: See Note; NOTES: [facility] Medical Records Department [address] [place] [address] History Physical Exam 06/23/21 0743 MR#: [id number] Acct: [id number] Name: DIMPLE LOPEZ Rep #: [id number] : 1960 60 From: Sushil Monroy MD PCP: Dr. 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 [facility] Medical History (Updated 06/23/21 @ 07:[address] Sushil Monroy MD) Atherosclerotic heart disease of false pass coronary artery without angina pectoris Cancer Chest [...] 12 Lead EKG Comments: See Note; NOTES: [facility] Cardiovascular Services [address] [place] [address] 12 Lead EKG 06/20/21 0815 MR#: [id number] Acct: [id number] Name: DIMPLE LOPEZ Rep #: [id number] : 1960 60 From: Christopher Rajan MD Attending Dr: Dr. Sushil Monroy MD Status: PRE [facility] Ordering Dr: Sushil Monroy MD Date: 06/20/21 Location: [facility] Sex: M C Admitted: Test Reason : PREOP Blood Pressure : / mmHG Vent. Rate : 051 BPM Atrial Rate : 051 BPM P-R Int : 190 ms QRS Dur : 074 ms QT Int : 408 ms P-R-T Axes : 039 035 034 degrees QTc Int : 376 ms Sinus bradycardia Otherwise normal ECG Confirmed by SATINDER JIMENEZ, CHRISTOPHER ([id number]), fan mail editor PRANAY ESCOBAR ([id number]) on 06/21/2021 9:38:46 AM Referred By: Sushil Monroy Confirmed By:CHRISTOPHER RAJAN MD 06/21/21 0938 Date Christopher Rajan MD CC: Dr. Sushil Monroy MD; Dr. Shelby Arce, DO Signed Shelby Arce DO Work Phone: Start: 06-02-2021 End: 06-03-2021 Bone Scan Whole Body Comments: See Note; NOTES: [facility] Imaging Services [address] [place] [address] Bone Scan Whole Body MR#: [id number] Acct: [id number] Name: DIMPLE LOPEZ Rep #: [id number] : 1960 M 60 From: Dc Camacho PCP: Dr. Shelby Arce DO Status: REG CLI Study: Bone Scan Whole Body Date of Exam: 06/02/21 Exam# [id number] Ordering Dr: Sushil Monroy MD CLINICAL: 60-year-old [...] Sushil Monroy MD; Dr. Shelby Arce DO Professional Volleyball Player: Signed Shelby Arce DO Work Phone: Start: 05-30-2021 End: 05-31-2021 Pelvis W/WO Contrast Comments: See Note; NOTES: [facility] Imaging Services [address] [place] [address] Pelvis W/WO Contrast MR#: [id number] Acct: [id number] Name: DIMPLE LOPEZ Rep #: [id number] : 1960 M 60 From: Capo Henderson MD PCP: Dr. Shelby Arce DO Status: REG CLI Study: Pelvis W/WO Contrast Date of Exam: 05/30/21 Exam# [id number] Ordering Dr: Sushil Monroy MD STUDY: MR [...] 2. Mild bilateral inguinal adenopathy. Electronically Signed: Cpao Henderson MD (Brooks) at 8:59 EST , Service support , CC: Dr. Sushil Monroy MD; Dr. Shelby Arce DO Professional Volleyball Player: Signed Shelby Arce DO Work Phone: Start: 07-28-2020 End: 07-28-2020 Cardiology Visit Report Comments: See Note; NOTES: [facility] [address] [place], [place] [address] OFFICE VISIT Date of Service: 07/28/20 MR#: [id number] Acct: [id number] Name: DIMPLE LOPEZ Rep #: [id number] : 1960 Provider: Dr. Tyrone Hi MD Age/Sex: 59/M Location: [facility] Status: Signed HPI HPI History of Present [...] History Palpitations (Chronic) Atherosclerotic heart disease of false pass coronary artery without angina pectoris (Chronic) Essential [...] care. 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 [address] [place] [address] OFFICE VISIT Date of Service: 07/30/19 MR#: [id number] Acct: [id number] Name: DIMPLE LOPEZ Rep #: [id number] : 1960 Provider: Tyrone Hi MD Age/Sex: 58/M Location: [facility] Status: Signed HPI HPI History of Present [...] Monitor Intake Visit Reasons: 1 Y FU Graphics Artist Required: No Accompanied by: None Is patient [...] AND Plan 1. Atherosclerotic heart disease of false pass coronary artery without angina pectoris I25.10 PTCA [...] care. 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) Coding Level of Care Code Off vis,est,level 3 Diagnoses Atherosclerotic heart disease of false pass coronary artery without angina pectoris I25.10 Pure hypercholesterolemia E78.00 Hyperlipidemia type: pure hypercholesterolemia Essential hypertension I10 Hypertension type: essential hypertension Coding Level of Care Code Off vis,est,level 3 Diagnoses Atherosclerotic heart disease of false pass coronary artery without angina pectoris I25.10 Pure [...] 11-03-2018 Stress Report Comments: See Note; NOTES: [facility] Cardiovascular Services [address] [place] [address] MR#: [id number] Acct: [id number] Name: DIMPLE LOPEZ Rep #: [id number] : 1960 58 From: Tyrone Hi MD [...] DO Date Dictated: 11/03/181732 Date Transcribed: 11/03/181732 Professional Volleyball Player: [place] Signed Shelby Arce Start: 07-24-2018 End: 07-24-2018 Cardiology Visit Report Comments: See Note; NOTES: [facility] 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 [address] [place] [address] OFFICE VISIT Date of Service: 07/23/17 MR#: [id number] Acct: [id number] Name: DIMPLE LOPEZ Rep #: [id number] : 1960 Provider: Tyrone Hi MD Age/Sex: 56/M Location: [facility] Status: Signed HPI HPI Chief Complaint: Follow-up [...] (Chronic) Hyperlipidemia (Chronic) Atherosclerotic heart disease of false pass coronary artery without angina pectoris (Chronic) Surgical [...] us. 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) Coding Level of Care Code Off vis,est,level [...] Tyrone Hi MD Start: 07-20-2016 End: 07-20-2016 PRACTICE REPRESENTATIVE Tyrone Hi MD Start: 07-20-2016 End: 07-20-2016 Follow Up Appt 1 year Tyrone Hi MD Start: 06-29-2016 End: 07-03-2016 *Hepatic Function Panel Tyrone Hi MD Start: 06-29-2016 End: 07-03-2016 Lipid panel [AGGREGATE] Tyrone Hi MD Start: 01-20-2016 End: 01-21-2016 Nuclear Stress Test - Treadmil Comments: See Note; NOTES: [facility] Imaging Services [address] [place] [address] Verdana 4d Nuclear Stress Test - Treadmil MR#: [id number] Acct: [id number] Name: DIMPLE LOPEZ Yaw Rep #: [id number] : 1960 55 From: Tyrone Hi MD [...] capacity. Tyrone Hi MD T: NTS JOB: [id number] 01/21/16 0932 <Electronically signed by Tyrone Hi MD> Date Tyrone Hi MD CC: Shelby Armijo Date Dictated: 01/20/169 Date Transcribed: 01/20/161118 Professional Volleyball Player: Signed Shelby Arce Start: 01-10-2016 End: 01-20-2016 [...] id isolate ea urine URINE DENISE CULTURE-IDENTIFICATN (69402) [facility]; [facility] Work Phone: Start: 11-06-2021 Urnls dip stick/tablet rgnt non-auto w/o micrscp Urinalysis, Office (12306) [facility]; [facility] Work [...] blood roxie numbers & subclasses NMR Profile (39133) [facility]; [facility] Work Phone: Start: 04-17-2019 Assay of thyroid stimulating hormone tsh TSH (43188) [facility]; [facility] Work Phone: Start: 04-17-2019 TSH Qn TSH (71126) [facility]; [facility] Work Phone: Start: 04-17-2019 Urine albumin quantitative MICROALBUMIN: CREATININE RATIO (19977) AND (20560) [facility]; [facility] Work Phone: Start: 04-17-2019 Comprehensive metabolic panel METABOLIC PANEL, COMPREHENSIVE (63078) [facility]; [facility] Work Phone: Start: 04-17-2019 Blood count complete auto&auto difrntl wbc CBC W/AUTO DIFF WBC (86842) [facility]; [facility] Work Phone: Start: 04-17-2019 Assay of prostate specific antigen total PSA (PROSTATE SPECIFIC ANTIGEN) (V76.44) [facility]; [facility] Work Phone: Start: 07-23-2017 End: 07-23-2017 Appointment Appointment [facility] Work Phone: Start: 12-31-2016 End: 07-12-2017 *Hepatic Function Panel *Hepatic Function Panel [facility] Work Phone: Start: 12-31-2016 End: 07-15-2017 Lipid panel [AGGREGATE] *Lipid Profile CC PCP [facility] Work Phone: Start: 07-20-2016 End: 07-20-2016 PRACTICE REPRESENTATIVE PRACTICE REPRESENTATIVE [facility] Work Phone: Start: 07-20-2016 End: 07-20-2016 Follow Up Appt 1 year Follow Up Appt 1 year [facility] Work Phone: Start: 06-29-2016 End: 07-03-2016 *Hepatic Function Panel *Hepatic Function Panel [facility] Work Phone: Start: 06-29-2016 End: 07-03-2016 Lipid panel [AGGREGATE] *Lipid Profile CC PCP [facility] Work Phone: Start: 01-12-2016 Provider Instructions for Treatment [facility]; [facility] Work Phone: Start: 01-10-2016 End: 01-11-2016 Nuclear stress test -exercise Nuclear stress test -exercise [facility] Work Phone: Start: 12-23-2015 End: 12-28-2015 *Hepatic Function Panel *Hepatic Function Panel [facility] Work Phone: Start: 12-23-2015 End: 12-28-2015 Lipid panel [AGGREGATE] *Lipid Profile CC PCP [facility] Work Phone: Start: 07-08-2015 End: 07-08-2015 PRACTICE REPRESENTATIVE PRACTICE REPRESENTATIVE [facility] Work Phone: Start: 07-08-2015 End: 07-08-2015 Follow Up Appt 1 year Follow Up Appt 1 year [facility] Work Phone: Start: 06-13-2015 End: 06-24-2015 *Hepatic Function Panel *Hepatic Function Panel [facility] Work Phone: Start: 06-13-2015 End: 06-24-2015 Lipid panel [AGGREGATE] *Lipid Profile CC PCP [facility] Work Phone: Start: 06-29-2014 End: 06-29-2014 PRACTICE REPRESENTATIVE PRACTICE REPRESENTATIVE [facility] Work Phone: Start: 06-29-2014 End: 06-29-2014 Follow Up Appt 1 year Follow Up Appt 1 year [facility] Work Phone: Start: 11-10-2013 End: 06-23-2014 *Hepatic Function Panel *Hepatic Function Panel [facility] Work Phone: Start: 11-10-2013 End: 06-23-2014 Lipid panel [AGGREGATE] *Lipid Profile CC PCP [facility] Work Phone: Start: 07-03-2013 End: 07-03-2013 Follow Up Appt 6 months Follow Up Appt 6 months [facility] Work Phone: Start: 07-03-2013 End: 07-03-2013 MMM MMM [facility] Work Phone: Start: 07-03-2013 End: 07-06-2013 Nuclear stress test -exercise Nuclear stress test -exercise [facility] Work Phone: Start: 10-11-2012 End: 05-26-2013 *Hepatic Function Panel *Hepatic Function Panel [facility] Work Phone: Start: 10-11-2012 End: 05-26-2013 Lipid panel [AGGREGATE] *Lipid Profile [facility] Work Phone: Start: 03-13-2012 End: 04-30-2012 *Hepatic Function Panel *Hepatic Function Panel [facility] Work Phone: Start: 03-13-2012 End: 04-30-2012 Lipid panel [AGGREGATE] *Lipid Profile [facility] Work Phone: Start: 09-10-2011 End: 09-24-2011 *Hepatic Function Panel *Hepatic Function Panel [facility] Work Phone: Start: 09-10-2011 End: 09-24-2011 Lipid panel [AGGREGATE] *Lipid Profile [facility] Work Phone: Start: 06-27-2011 End: 06-27-2011 Follow Up Appt 6 months Follow Up Appt 6 months [facility] Work Phone: Patient Education HYPERLIPIDEMIA , HYPERTENSION, CHEST%20PAIN, LIPID%20PROFILE [facility] Work Phone: Comprehensive I nternal [...] Informa tion Online using Patient Portal and [employer] Indication:Non-smoker Start:22-Mar-2021 Instruction Type:Patient Education Patient Instructions Indication:BMI 25.0-25.9,adult Start:18-Jul-2020 Instruction Type:Provider Instructions for Treatment How to Access Health Informa tion Online using Patient Portal and [employer] Indication:BMI 25.0-25.9,adult Start:18-Jul-2020 Instruction Type:Patient Education [...] tion Online using Patient Portal and [employer] Indication:Non-smoker Start:22-Mar-2021 Instruction Type:Patient Education Patient Instructions Indication:BMI 25.0-25.9,adult Start:18-Jul-2020 Instruction Type:Provider Instructions for Treatment How to Access Health Informa tion Online using Patient Portal and [employer] Apps Indication:BMI 25.0-25.9,adult Start:18-Jul-2020 Instruction Type:Patient Education [...] tion Online using Patient Portal and [employer] Apps Indication:Non-smoker Start:22-Mar-2021 Instruction Type:Patient Education Patient Instructions Indication:BMI 25.0-25.9,adult Start:18-Jul-2020 Instruction Type:Provider Instructions for Treatment How to Access Health Informa tion Online using Patient Portal and [employer] Apps Indication:BMI 25.0-25.9,adult Start:18-Jul-2020 Instruction Type:Patient Education [...] tion Online using Patient Portal and [employer] Apps Indication:Non-smoker Start:22-Mar-2021 Instruction Type:Patient Education Patient Instructions Indication:BMI 25.0-25.9,adult Start:18-Jul-2020 Instruction Type:Provider Instructions for Treatment How to Access Health Informa tion Online using Patient Portal and [employer] Apps Indication:BMI 25.0-25.9,adult Start:18-Jul-2020 Instruction Type:Patient Education [...] tion Online using Patient Portal and [employer] Apps Indication:Non-smoker Start:22-Mar-2021 Instruction Type:Patient Education Patient Instructions Indication:BMI 25.0-25.9,adult Start:18-Jul-2020 Instruction Type:Provider Instructions for Treatment How to Access Health Informa tion Online using Patient Portal and [employer] Apps Indication:BMI 25.0-25.9,adult Start:18-Jul-2020 Instruction Type:Patient Education [...] tion Online using Patient Portal and [employer] Apps Indication:Non-smoker Start:22-Mar-2021 Instruction Type:Patient Education Patient Instructions Indication:BMI 25.0-25.9,adult Start:18-Jul-2020 Instruction Type:Provider Instructions for Treatment How to Access Health Informa tion Online using Patient Portal and [employer] Apps Indication:BMI 25.0-25.9,adult Start:18-Jul-2020 Instruction Type:Patient Education [...] tion Online using Patient Portal and [employer] Apps Indication:Non-smoker Start:22-Mar-2021 Instruction Type:Patient Education Patient Instructions Indication:BMI 25.0-25.9,adult Start:18-Jul-2020 Instruction Type:Provider Instructions for Treatment How to Access Health Informa tion Online using Patient Portal and [employer] Apps Indication:BMI 25.0-25.9,adult Start:18-Jul-2020 Instruction Type:Patient Education [...] tion Online using Patient Portal and [employer] Apps Indication:Non-smoker Start:22-Mar-2021 Instruction Type:Patient Education Patient Instructions Indication:BMI 25.0-25.9,adult Start:18-Jul-2020 Instruction Type:Provider Instructions for Treatment How to Access Health Informa tion Online using Patient Portal and [employer] Apps Indication:BMI 25.0-25.9,adult Start:18-Jul-2020 Instruction Type:Patient Education [...] tion Online using Patient Portal and [employer] Apps Indication:Non-smoker Start:22-Mar-2021 Instruction Type:Patient Education Patient Instructions Indication:BMI 25.0-25.9,adult Start:18-Jul-2020 Instruction Type:Provider Instructions for Treatment How to Access Health Informa tion Online using Patient Portal and [employer] Apps Indication:BMI 25.0-25.9,adult Start:18-Jul-2020 Instruction Type:Patient Education How to access health informa tion online Indication:Non-smoker Start:17-Apr-2019 Instruction Type:Patient Education How to access health informa tion online - Detail Indication:Non-smoker Start:17-Apr-2019 Instruction Type:Patient Education Patient Instructions Indication:Non-smoker Start:17-Apr-2019 Instruction Type:Provider Instructions for Treatment [facility]; [facility] Work Phone: [facility]* Name Dates Details Patient Instructions Indication:Non-smoker Start:22-Mar-2021 Instruction Type:Provider Instructions for Treatment How to Access Health Informa tion Online using Patient Portal and [employer] Apps Indication:Non-smoker Start:22-Mar-2021 Instruction Type:Patient Education Patient Instructions Indication:BMI 25.0-25.9,adult Start:18-Jul-2020 Instruction Type:Provider Instructions for Treatment How to Access Health Informa tion Online using Patient Portal and [employer] Apps Indication:BMI 25.0-25.9,adult Start:18-Jul-2020 Instruction Type:Patient Education [...] tion Online using Patient Portal and [employer] Apps Indication:Non-smoker Start:22-Mar-2021 Instruction Type:Patient Education Patient Instructions Indication:BMI 25.0-25.9,adult Start:18-Jul-2020 Instruction Type:Provider Instructions for Treatment How to Access Health Informa tion Online using Patient Portal and [employer] Indication:BMI 25.0-25.9,adult Start:18-Jul-2020 Instruction Type:Patient Education [...] tion Online using Patient Portal and [employer] Apps Indication:Non-smoker Start:22-Mar-2021 Instruction Type:Patient Education Patient Instructions Indication:BMI 25.0-25.9,adult Start:18-Jul-2020 Instruction Type:Provider Instructions for Treatment How to Access Health Informa tion Online using Patient Portal and [employer] Apps Indication:BMI 25.0-25.9,adult Start:18-Jul-2020 Instruction Type:Patient Education [...] tion Online using Patient Portal and [employer] Apps Indication:Non-smoker Start:22-Mar-2021 Instruction Type:Patient Education Patient Instructions Indication:BMI 25.0-25.9,adult Start:18-Jul-2020 Instruction Type:Provider Instructions for Treatment How to Access Health Informa tion Online using Patient Portal and [employer] Apps Indication:BMI 25.0-25.9,adult Start:18-Jul-2020 Instruction Type:Patient Education [...] tion Online using Patient Portal and [employer] Apps Indication:Non-smoker Start:22-Mar-2021 Instruction Type:Patient Education Patient Instructions Indication:BMI 25.0-25.9,adult Start:18-Jul-2020 Instruction Type:Provider Instructions for Treatment How to Access Health Informa tion Online using Patient Portal and [employer] Apps Indication:BMI 25.0-25.9,adult Start:18-Jul-2020 Instruction Type:Patient Education [...] tion Online using Patient Portal and [employer] Apps Indication:Non-smoker Start:22-Mar-2021 Instruction Type:Patient Education Patient Instructions Indication:BMI 25.0-25.9,adult Start:18-Jul-2020 Instruction Type:Provider Instructions for Treatment How to Access Health Informa tion Online using Patient Portal and [employer] Apps Indication:BMI 25.0-25.9,adult Start:18-Jul-2020 Instruction Type:Patient Education [...] tion Online using Patient Portal and [employer] Apps Indication:Non-smoker Start:22-Mar-2021 Instruction Type:Patient Education Patient Instructions Indication:BMI 25.0-25.9,adult Start:18-Jul-2020 Instruction Type:Provider Instructions for Treatment How to Access Health Informa tion Online using Patient Portal and [employer] Apps Indication:BMI 25.0-25.9,adult Start:18-Jul-2020 Instruction Type:Patient Education [...] tion Online using Patient Portal and [employer] Apps Indication:BMI 25.0-25.9,adult Start:18-Jul-2020 Instruction Type:Patient Edu [...] BE BASED ON THE PRIMARY CLINICAL RECORDS. [employer] provides no warranty or guarantee of the accuracy or completeness of information in this document.
[2023-05-30 00:33] LABS: Absolute Lymphocyte Count 1.54 X10^3/uL (0.83-4.51); Absolute Neutrophil Count 6.7 X10^3/uL (2.0-7.7); Basophil# 0.03 X10^3/uL; Basophil% 0.3 % (0-1); Eosinophil# 0.19 X10^3/uL; Hematocrit 42.9 % (40-54); Hemoglobin 14.4 g/dL (13.0-16.5); Lymphocyte # 1.54 X10^3/ul (0.83-4.51); Lymphocyte % 16.5 % (19-41); Mean Corp Hgb Conc 33.6 g/dL (32-36); Mean Corpuscular Hgb 31.4 pg (27.0-32.0); Mean Corpuscular Volume 93.7 fL (80-94); Mean Platelet Vol. 9.4 fl (6.2-12.0); Monocyte# 0.79 X10^3/uL; Monocyte% 8.5 % (0-10); NRBC Flagged by Analyzer 0 % (0-5); Neutrophil # 6.66 X10^3/uL (2.7-7.7); Neutrophil % 71.3 % (47-70); Platelet Count 152 K/mm3 (150-450); RBC Distribution Width CV 12.5 % (11.6-14.6); RBC Distribution Width SD 43.3 fl (35.1-43.9); Red Blood Count 4.58 M/mm3 (4.6-6.2); White Blood Count 9.3 K/mm3 (4.4-11.0)
[2023-05-30 00:39] LABS: D-Dimer Quantitative (DVT/PE) 1.81 FEU/ug/m (0.27-0.49)
[2023-05-30 00:40] LABS: Anion Gap 5 (5-15); BUN 18 mg/dL (7-18); BUN/Creat Ratio 16.4 RATIO (10-20); Calcium,Total 8.6 mg/dL (8.5-10.1); Chloride 102 mmol/L (98-107); EST Glomerular Filtration Rate 72 mL/min (>60); Est Glom Filt Rate - Afr Amer 88 mL/min (>60); Estimated Creatinine Clearance 76.06 ml/min; Glucose 119 mg/dL (74-106); Potassium 4.2 mmol/L (3.5-5.1); Sodium Level 134 mmol/L (136-145); Troponin-I HS 10 pg/mL (3.0-78.0)
--- NOTE | 2023-05-30 00:42 | CT_ITS ---
STUDY: CTA CHEST REASON FOR EXAM: Male, 62 years old. Chest pain and shortness of breath RADIATION DOSAGE (If Supplied By Facility): CTDIvol = ( 28.85 ) mGy, DLP = ( 503.15 ) mGycm TECHNIQUE: The examination was performed with the intravenous administration of IV 100mL Isovue-370. Post-processing of the angiographic images was performed, with multiplanar reformation and 3D reconstruction. Individualized dose optimization techniques were used for this CT. COMPARISON: FINDINGS: Intraluminal filling defects are noted within the posterior basilar segmental and subsegmental branches of the right lower lobe. Additional intraluminal filling defect noted within the anterior segmental pulmonary artery of the left upper lobe Thoracic aorta demonstrates no unusual dilatation or dissection. Heart is normal in size. There is no evidence of right ventricular dilatation. Normal pericardium. Shotty mediastinal and hilar lymph nodes. Shotty bilateral axillary lymph nodes. Tracheal bronchial tree and esophagus are normal. Patchy groundglass opacification throughout the right posterior lower lobe, with associated bilateral dependent atelectasis. No pleural effusion or pneumothorax. Normal chest wall structures. Normal osseous structures. Normal visualized upper abdomen. CT/CTA Chest W/WO Contrast IMPRESSION: 1. Small moderate burden bilateral pulmonary emboli with no evidence of right-sided heart strain 2. Patchy ground glass infiltration throughout the posterior right lung base, likely inflammatory in etiology with potential associated ischemic change. 3. Shotty mediastinal, hilar and axillary lymph nodes, likely reactive in nature. Electronically Signed: Noe Genao MD at 2:11 EST ,
[2023-05-30 01:19] LABS: International Normalized Ratio 0.9; Prothrombin Time (Protime)PT. 12.4 SECONDS (11.7-14.9)
[2023-05-30 01:21] LABS: Partial Thromboplast Time 49.5 Seconds (24.1-36.2)
[2023-05-30 01:28] LABS: AST(SGOT) 18 U/L (15-37); Alanine Aminotransfer ALT/SGPT 35 U/L (16-61); Albumin, Serum 3.1 g/dL (3.2-5.0); Alkaline Phosphatase 80 U/L (45-117); Bilirubin, Direct 0.11 mg/dL (0.00-0.30); Globulin 4.1 g/dL (2.2-4.2); Protein, Total 7.2 g/dL (6.4-8.2)
[2023-05-30] MEDS: APIXABAN 5 MG TABLET 10 MG PO (02:41)
== END 2023-05-30 03:05 | disposition home or self-care (01) ==
PROVIDERS: Emergency Provider Emergency Medicine; PCP Internal Medicine; Visit Provider Emergency Medicine
DX: U07.1 COVID-19 (principal); I26.99 Other pulmonary embolism without acute cor pulmonale; J98.11 Atelectasis; I10 Essential (primary) hypertension; Z87.891 Personal history of nicotine dependence; I25.10 Atherosclerotic heart disease of native coronary artery without angina pectoris; E78.5 Hyperlipidemia, unspecified; Z86.718 Personal history of other venous thrombosis and embolism; Z79.01 Long term (current) use of anticoagulants
CPT/HCPCS: 71045; 71275; 80048; 80076; 84484; 85025; 85379; 85610; 85730; 93005; 99285; Q9967; A4216

== ENCOUNTER → 2023-06-13 | Outpatient (CLI) | payer BC, SELFPAY ==
--- NOTE | 2023-06-13 14:06 | VDUE_ITS ---
Reason For Study: Left arm swelling Left Proximal Left jugular vein is spontaneous, widely patent, phasic, with no intraluminal echogenicity noted. Left subclavian vein is spontaneous, widely patent, phasic, with no intraluminal echogenicity noted. Left Arm Left axillary vein is spontaneous, patent, phasic, competent, compressible and demonstrates augmentation. Left brachial vein is compressible. Left cephalic vein is compressible. Basilic vein is partially compressible with bright intraluminal echoes consistent with Chronic SVT. Recent IV. Left Lower Arm Left radial vein is compressible. Left ulnar vein is compressible. Patient Safety Preliminary report faxed to Dr. Arce. 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 There is no evidence of deep vein thrombosis. Ordering Physician: Shelby Arce Referring Physician: Shelby Arce Performed By: Mary Durand RVT ???
--- OUTSIDE RECORDS SUMMARY | 2023-06-13 18:06 | XMS RPT_ITS | CCD ---
Author Name Unknown Address [address] [place] [address] Organization [facility] Care Team Providers Care Manager Practice Name Role Phone Jessica Melendrez RN Unavailable Unavailable Jessica Melendrez RN Unavailable Unavailable Shelby Arce Unavailable Lencho Betancur Unavailable Omari Powell Unavailable Bishnu Maria Unavailable Unavailable Hilaria Guadarrama Unavailable Unavailable Unavailable Shelby Arce DO Unavailable Yaw Castaneda MD Unavailable Dr. 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 [place] [address] OFFICE VISIT Date of Service: 09/06/22 MR#: [id number] Acct: [id number] Name: DIMPLE LOPEZ Rep #: [id number] : 1960 Provider: Dr. 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 anticoagulants Prothrombin Time w/INR Today I80.201 - Phlebitis and thrombophlebitis of unspecified deep vessels of right lower extremity, 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 [address] Venous Duplex US - Gordon Extrem 04/16/22 0949 MR#: [id number] Acct: [id number] Name: DIMPLE LOPEZ Rep #: [id number] : 1960 61 From: Kris Leblanc MD [...] Date Dictated: 04/16/22 0949 Date Transcribed: 04/16/221131 Seasoning Sprayer: Clarke Arce DO Work Phone: Start: 12-22-2021 End: 08-12-2022 Venous Duplex US - Gordon Extrem Comments: See Note; NOTES: [facility] [address] [place] [address] Venous Duplex US - Gordon Extrem 12/22/21 0956 MR#: [id number] Acct: [id number] Name: DIMPLE LOPEZ Rep #: [id number] : 1960 61 From: Kris Leblanc MD [...] Date Dictated: 12/22/21955 Date Transcribed: 12/22/21 132 Seasoning Sprayer: Clarke Arce DO Work Phone: Start: 10-31-2021 End: 10-31-2021 Urgent Care Visit Report Comments: See Note; NOTES: [facility] [address] [place] [address] OFFICE VISIT Date of Service: 10/31/21 MR#: [id number] Acct: [id number] Name: DIMPLE LOPEZ Rep #: [id number] : 1960 Provider: APRIL Salmon Age/Sex: 61/M Location: [facility] [place] [facility] [place] Status: Signed Intake Vital Signs 10/31/21 [...] BID #180 tabs 10/04/21 [Rx Confirmed 10/31/21] 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 Head: normal to inspection and atraumatic [...] 09-12-2021 Stress Report Comments: See Note; NOTES: [facility] [address] [place] [address] MR#: [id number] Acct: [id number] Name: DIMPLE LOPEZ Rep #: [id number] : 1960 61 From: Tyrone Hi MD Primary Care: Dr. Shelby Arce DO Status: REG CLI Referring Dr: Tyrone iH MD Sex: M C Stress Test Report [...] DO Date Dictated: 09/12/211832 Date Transcribed: 09/12/211832 Seasoning Sprayer: CO Signed Shelby Arce DO Work Phone: Start: 09-12-2021 End: 09-12-2021 Echo Complete Comments: See Note; NOTES: [facility] [address] [place] [address] Echo Complete 09/12/21811 MR#: [id number] Acct: [id number] Name: DIMPLE LOPEZ Rep #: [id number] : 1960 61 From: Tyrone Hi MD Attending Dr: Dr. Tyrone Hi MD Status: REG Reed DILLON Ordering Dr: Tyrone Hi MD Date: 09/12/21 Location: [facility] Sex: M C Admitted: Reason For [...] DO Date Dictated: 09/12/21811 Date Transcribed: 09/12/21951 Seasoning Sprayer: Signed Shelby Arce DO Work Phone: Start: 08-01-2021 End: 09-01-2021 Cardiology Visit Report Comments: See Note; NOTES: [facility] [address] [place], [place] [address] OFFICE VISIT Date of Service: 08/01/21 MR#: [id number] Acct: [id number] Name: DIMPLE LOPEZ Rep #: [id number] : 1960 Provider: Dr. 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 Call [facility] ([phone]) or report to the closest Emergency Room. Call 911 if necessary. 07/04/21 2340 <Electronically signed by Javon Franco MD> Cosigner Signature (if applicable): CC: Dr. Shelby Arce DO Signed Shelby Arce DO Work Phone: Start: 07-04-2021 End: 07-04-2021 CTA Chest W/WO Contrast Comments: See Note; NOTES: [facility] Imaging Services [address] [place] [address] CTA Chest W/WO Contrast MR#: [id number] Acct: [id number] Name: DIMPLE LOPEZ Rep #: [id number] : 1960 M 60 From: Randolph Gray DO PCP: Dr. Shelby Arce DO Status: REG ER Study: CTA Chest W/WO Contrast Date of Exam: 07/04/21 Exam# [id number] Ordering Dr: Javon Franco MD STUDY: CTA [...] 23:27 EST Reading Location ID and State: [address] [place] [address] Tel [phone], Service support , CC: Dr. Shelby Arce DO; Dr. Javon Franco MD Seasoning Sprayer: Signed Shelby Arce DO Work Phone: Start: 06-23-2021 End: 06-23-2021 Operative Report Comments: See Note; NOTES: [facility] Records Department [address] [place] [address] Operative Report 06/23/21 1151 MR#: [id number] Acct: [id number] Name: DIMPLE LOPEZ Rep #: [id number] : 1960 60 From: Sushil Monroy MD PCP: Dr. Shelby Arce, DO Status:REG [facility] [place] Location: NM3 [id number] Report of Operation Date of Procedure: 06/23/21 [...] as the penis and testicles. A 16 Chinese catheter was placed into the bladder with [...] obturator nerve and then also below the blender machine operator nerve all the lymph nodes were [...] nerve and the left side beyond the blender machine operator nerve down further behind it cleaning [...] over to the right and left needle sprinkler truck driver and suture ligated the dorsal [...] new catheter into the bladder, an 18 Chinese [place] tip catheter flushed the bladder and there [...] minimal and the drain was a 18 Chinese Jordan catheter. No other surgical drain was [...] 06-23-2021 Discharge Instruction Comments: See Note; NOTES: [facility] Records Department [address] [place] [address] Instructions for Home/Discharge Instructions 06/23/21 0744 MR#: [id number] Acct: [id number] Name: DIMPLE LOPEZ Rep #: [id number] : 1960 60 From: Sushil Monroy MD PCP: Dr. Shelby Arce, DO Status:REG [facility] [place] Discharge Instructions Diet Discharge Diet: Light diet [...] bag and Jordan to large bag Drain: Romance Follow Up Care Please Follow Up With: Sushil Monroy MD When: Call [phone] for an appointment Test Results: Test results [...] and Physical Exam Comments: See Note; NOTES: [facility] Department [address] [place] [address] History Physical Exam 06/23/21 0743 MR#: [id number] Acct: [id number] Name: DIMPLE LOPEZ Rep #: [id number] : 1960 60 From: Sushil Monroy MD PCP: Dr. 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 [facility] Medical History (Updated 06/23/21 @ 07:[address] 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 Sushil Monroy MD Status: PRE [facility] [place] Ordering Dr: Sushil Monroy MD Date: 06/20/21 Location: [facility] [place] Sex: M C Admitted: Test Reason : PREOP Blood Pressure : / mmHG Vent. Rate : 051 BPM Atrial Rate : 051 BPM P-R Int : 190 ms QRS Dur : 074 ms QT Int : 408 ms P-R-T Axes : 039 035 034 degrees QTc Int : 376 ms Sinus bradycardia Otherwise normal ECG Confirmed by SATINDER JIMENEZ, CHRISTOPHER ([id number]), features editor PRANAY ESCOBAR ([id number]) on 06/21/2021 9:38:46 AM Referred By: Sushil Monroy Confirmed By:CHRISTOPHER RAJAN MD 06/21/21 0938 Date Christopher Rajan MD CC: Dr. Sushil Monroy MD; Dr. Shelby Arce, DO Signed Shelby Arce DO Work Phone: Start: 06-02-2021 End: 06-03-2021 Bone Scan Whole Body Comments: See Note; NOTES: [facility] Imaging Services [address] [place] [address] Bone Scan Whole Body MR#: [id number] Acct: [id number] Name: DIMPLE LOPEZ Rep #: [id number] : 1960 M 60 From: Dc Camacho PCP: Dr. Shelby Arce DO Status: REG CLI Study: Bone Scan Whole Body Date of Exam: 06/02/21 Exam# [id number] Ordering Dr: Sushil Monroy MD CLINICAL: 60-year-old [...] Sushil Monroy MD; Dr. Shelby Arce DO Seasoning Sprayer: Signed Shelby Arce DO Work Phone: Start: 05-30-2021 End: 05-31-2021 Pelvis W/WO Contrast Comments: See Note; NOTES: [facility] Imaging Services [address] [place] [address] Pelvis W/WO Contrast MR#: [id number] Acct: [id number] Name: DIMPLE LOPEZ Rep #: [id number] : 1960 M 60 From: Capo Henderson MD PCP: Dr. Shelby Arce DO Status: REG CLI Study: Pelvis W/WO Contrast Date of Exam: 05/30/21 Exam# [id number] Ordering Dr: Sushil Monroy MD STUDY: MR [...] Sushil Monroy MD; Dr. Shelby Arce DO Seasoning Sprayer: Signed Shelby Arce DO Work Phone: Start: 07-28-2020 End: 07-28-2020 Cardiology Visit Report Comments: See Note; NOTES: [facility] [address] [place], [place] [address] OFFICE VISIT Date of Service: 07/28/20 MR#: [id number] Acct: [id number] Name: DIMPLE LOPEZ Rep #: [id number] : 1960 Provider: Dr. 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 [place] [address] OFFICE VISIT Date of Service: 07/30/19 MR#: [id number] Acct: [id number] Name: DIMPLE LOPEZ Rep #: [id number] : 1960 Provider: Tyrone Hi MD Age/Sex: 58/M Location: [facility] [place] [facility] [place] Status: Signed HPI HPI History of [...] Monitor Intake Visit Reasons: 1 Y FU Water Gas Operator Required: No Accompanied by: None Is patient [...] AND Plan 1. 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) Coding Level of Care Code Off vis,est,level [...] Tyrone Hi MD Start: 07-20-2016 End: 07-20-2016 GLOBAL ENGINEERING MANAGER Tyrone Hi MD Start: 07-20-2016 End: 07-20-2016 Follow Up Appt 1 year Tyrone Hi MD Start: 06-29-2016 End: 07-03-2016 *Hepatic Function Panel Tyrone Hi MD Start: 06-29-2016 End: 07-03-2016 Lipid panel [AGGREGATE] Tyrone Hi MD Start: 01-20-2016 End: 01-21-2016 Nuclear Stress Test - Treadmil Comments: See Note; NOTES: [facility] Imaging Services [address] [place] [address] Verdana 4d Nuclear Stress Test - Treadmil MR#: [id number] Acct: [id number] Name: DIMPLE LOPEZ Yaw Rep #: [id number] : 1960 55 From: Tyrone Hi MD [...] capacity. Tyrone Hi MD T: NTS JOB: [id number] 01/21/16 0932 <Electronically signed by Tyrone Hi MD> Date Tyrone Hi MD CC: Shelby Armijo Date Dictated: 01/20/169 Date Transcribed: 01/20/161118 Seasoning Sprayer: Signed Shelby Arce Start: 01-10-2016 End: 01-20-2016 [...] id isolate ea urine URINE DENISE CULTURE-IDENTIFICATN (13556) [facility]; [facility] Work Phone: Start: 11-06-2021 Urnls dip stick/tablet rgnt non-auto w/o micrscp Urinalysis, Office (67935) [facility]; [facility] Work [...] blood roxie numbers & subclasses NMR Profile (93618) [facility]; [facility] Work Phone: Start: 04-17-2019 Assay of thyroid stimulating hormone tsh TSH (68416) [facility]; [facility] Work Phone: Start: 04-17-2019 TSH Qn TSH (96125) [facility]; [facility] Work Phone: Start: 04-17-2019 Urine albumin quantitative MICROALBUMIN: CREATININE RATIO (42161) AND (59424) [facility]; [facility] Work Phone: Start: 04-17-2019 Comprehensive metabolic panel METABOLIC PANEL, COMPREHENSIVE (66150) [facility]; [facility] Work Phone: Start: 04-17-2019 Blood count complete auto&auto difrntl wbc CBC W/AUTO DIFF WBC (91345) [facility]; [facility] Work Phone: Start: 04-17-2019 Assay of prostate specific antigen total PSA (PROSTATE SPECIFIC ANTIGEN) (V76.44) [facility]; [facility] Work Phone: Start: 07-23-2017 End: 07-23-2017 Appointment Appointment [facility] Work Phone: Start: 12-31-2016 End: 07-12-2017 *Hepatic Function Panel *Hepatic Function Panel [facility] Work Phone: Start: 12-31-2016 End: 07-15-2017 Lipid panel [AGGREGATE] *Lipid Profile CC PCP [facility] Work Phone: Start: 07-20-2016 End: 07-20-2016 GLOBAL ENGINEERING MANAGER GLOBAL ENGINEERING MANAGER [facility] Work Phone: Start: 07-20-2016 End: 07-20-2016 Follow Up Appt 1 year Follow Up Appt 1 year [facility] Work Phone: Start: 06-29-2016 End: 07-03-2016 *Hepatic Function Panel *Hepatic Function Panel [facility] Work Phone: Start: 06-29-2016 End: 07-03-2016 Lipid panel [AGGREGATE] *Lipid Profile CC PCP [facility] Work Phone: Start: 01-12-2016 Provider Instructions for Treatment [facility]; [facility] Work Phone: Start: 01-10-2016 End: 01-11-2016 Nuclear stress test -exercise Nuclear stress test -exercise [facility] Work Phone: Start: 12-23-2015 End: 12-28-2015 *Hepatic Function Panel *Hepatic Function Panel [facility] Work Phone: Start: 12-23-2015 End: 12-28-2015 Lipid panel [AGGREGATE] *Lipid Profile CC PCP [facility] Work Phone: Start: 07-08-2015 End: 07-08-2015 GLOBAL ENGINEERING MANAGER GLOBAL ENGINEERING MANAGER [facility] Work Phone: Start: 07-08-2015 End: 07-08-2015 Follow Up Appt 1 year Follow Up Appt 1 year [facility] Work Phone: Start: 06-13-2015 End: 06-24-2015 *Hepatic Function Panel *Hepatic Function Panel [facility] Work Phone: Start: 06-13-2015 End: 06-24-2015 Lipid panel [AGGREGATE] *Lipid Profile CC PCP [facility] Work Phone: Start: 06-29-2014 End: 06-29-2014 GLOBAL ENGINEERING MANAGER GLOBAL ENGINEERING MANAGER [facility] Work Phone: Start: 06-29-2014 End: 06-29-2014 Follow Up Appt 1 year Follow Up Appt 1 year [facility] Work Phone: Start: 11-10-2013 End: 06-23-2014 *Hepatic Function Panel *Hepatic Function Panel [facility] Work Phone: Start: 11-10-2013 End: 06-23-2014 Lipid panel [AGGREGATE] *Lipid Profile CC PCP [facility] Work Phone: Start: 07-03-2013 End: 07-03-2013 Follow Up Appt 6 months Follow Up Appt 6 months [facility] Work Phone: Start: 07-03-2013 End: 07-03-2013 MMM MMM [facility] Work Phone: Start: 07-03-2013 End: 07-06-2013 Nuclear stress test -exercise Nuclear stress test -exercise [facility] Work Phone: Start: 10-11-2012 End: 05-26-2013 *Hepatic Function Panel *Hepatic Function Panel [facility] Work Phone: Start: 10-11-2012 End: 05-26-2013 Lipid panel [AGGREGATE] *Lipid Profile [facility] Work Phone: Start: 03-13-2012 End: 04-30-2012 *Hepatic Function Panel *Hepatic Function Panel [facility] Work Phone: Start: 03-13-2012 End: 04-30-2012 Lipid panel [AGGREGATE] *Lipid Profile [facility] Work Phone: Start: 09-10-2011 End: 09-24-2011 *Hepatic Function Panel *Hepatic Function Panel [facility] Work Phone: Start: 09-10-2011 End: 09-24-2011 Lipid panel [AGGREGATE] *Lipid Profile [facility] Work Phone: Start: 06-27-2011 End: 06-27-2011 Follow Up Appt 6 months Follow Up Appt 6 months [facility] Work Phone: Patient Education HYPERLIPIDEMIA , HYPERTENSION, CHEST%20PAIN, LIPID%20PROFILE [facility] Work Phone: Comprehensive I nternal [...] Informa tion Online using Patient Portal and [employer] Indication:Non-smoker Start:22-Mar-2021 Instruction Type:Patient Education Patient Instructions Indication:BMI 25.0-25.9,adult Start:18-Jul-2020 Instruction Type:Provider Instructions for Treatment How to Access Health Informa tion Online using Patient Portal and [employer] Indication:BMI 25.0-25.9,adult Start:18-Jul-2020 Instruction Type:Patient Education [...] tion Online using Patient Portal and 3rd [employer] Apps Indication:Non-smoker Start:22-Mar-2021 Instruction Type:Patient Education Patient Instructions Indication:BMI 25.0-25.9,adult Start:18-Jul-2020 Instruction Type:Provider Instructions for Treatment How to Access Health Informa tion Online using Patient Portal and [employer]rd [employer] Apps Indication:BMI 25.0-25.9,adult Start:18-Jul-2020 Instruction Type:Patient Education [...] tion Online using Patient Portal and 3rd Libertarian Apps Indication:Non-smoker Start:22-Mar-2021 Instruction Type:Patient Education Patient Instructions Indication:BMI 25.0-25.9,adult Start:18-Jul-2020 Instruction Type:Provider Instructions for Treatment How to Access Health Informa tion Online using Patient Portal and [employer]rd [employer] Apps Indication:BMI 25.0-25.9,adult Start:18-Jul-2020 Instruction Type:Patient Education [...] tion Online using Patient Portal and [employer] Apps Indication:Non-smoker Start:22-Mar-2021 Instruction Type:Patient Education Patient Instructions Indication:BMI 25.0-25.9,adult Start:18-Jul-2020 Instruction Type:Provider Instructions for Treatment How to Access Health Informa tion Online using Patient Portal and [employer]rd [employer] Apps Indication:BMI 25.0-25.9,adult Start:18-Jul-2020 Instruction Type:Patient Education [...] tion Online using Patient Portal and [employer] Apps Indication:Non-smoker Start:22-Mar-2021 Instruction Type:Patient Education Patient Instructions Indication:BMI 25.0-25.9,adult Start:18-Jul-2020 Instruction Type:Provider Instructions for Treatment How to Access Health Informa tion Online using Patient Portal and [employer] Apps Indication:BMI 25.0-25.9,adult Start:18-Jul-2020 Instruction Type:Patient Education [...] tion Online using Patient Portal and [employer] Apps Indication:Non-smoker Start:22-Mar-2021 Instruction Type:Patient Education Patient Instructions Indication:BMI 25.0-25.9,adult Start:18-Jul-2020 Instruction Type:Provider Instructions for Treatment How to Access Health Informa tion Online using Patient Portal and [employer]rd [employer] Apps Indication:BMI 25.0-25.9,adult Start:18-Jul-2020 Instruction Type:Patient Education [...] tion Online using Patient Portal and [employer] Apps Indication:Non-smoker Start:22-Mar-2021 Instruction Type:Patient Education Patient Instructions Indication:BMI 25.0-25.9,adult Start:18-Jul-2020 Instruction Type:Provider Instructions for Treatment How to Access Health Informa tion Online using Patient Portal and [employer]rd [employer] Apps Indication:BMI 25.0-25.9,adult Start:18-Jul-2020 Instruction Type:Patient Education [...] tion Online using Patient Portal and [employer] Apps Indication:Non-smoker Start:22-Mar-2021 Instruction Type:Patient Education Patient Instructions Indication:BMI 25.0-25.9,adult Start:18-Jul-2020 Instruction Type:Provider Instructions for Treatment How to Access Health Informa tion Online using Patient Portal and [employer] Apps Indication:BMI 25.0-25.9,adult Start:18-Jul-2020 Instruction Type:Patient Education [...] tion Online using Patient Portal and [employer] Apps Indication:Non-smoker Start:22-Mar-2021 Instruction Type:Patient Education Patient Instructions Indication:BMI 25.0-25.9,adult Start:18-Jul-2020 Instruction Type:Provider Instructions for Treatment How to Access Health Informa tion Online using Patient Portal and [employer]rd [employer] Apps Indication:BMI 25.0-25.9,adult Start:18-Jul-2020 Instruction Type:Patient Education How to access health informa tion online Indication:Non-smoker Start:17-Apr-2019 Instruction Type:Patient Education How to access health informa tion online - Detail Indication:Non-smoker Start:17-Apr-2019 Instruction Type:Patient Education Patient Instructions Indication:Non-smoker Start:17-Apr-2019 Instruction Type:Provider Instructions for Treatment [facility]; [facility] Work Phone: [facility] Name Dates Details Patient Instructions Indication:Non-smoker Start:22-Mar-2021 Instruction Type:Provider Instructions for Treatment How to Access Health Informa tion Online using Patient Portal and [employer]rd [employer] Apps Indication:Non-smoker Start:22-Mar-2021 Instruction Type:Patient Education Patient Instructions Indication:BMI 25.0-25.9,adult Start:18-Jul-2020 Instruction Type:Provider Instructions for Treatment How to Access Health Informa tion Online using Patient Portal and [employer]rd [employer] Apps Indication:BMI 25.0-25.9,adult Start:18-Jul-2020 Instruction Type:Patient Education [...] tion Online using Patient Portal and [employer] Apps Indication:Non-smoker Start:22-Mar-2021 Instruction Type:Patient Education Patient Instructions Indication:BMI 25.0-25.9,adult Start:18-Jul-2020 Instruction Type:Provider Instructions for Treatment How to Access Health Informa tion Online using Patient Portal and [employer]rd [employer] Apps Indication:BMI 25.0-25.9,adult Start:18-Jul-2020 Instruction Type:Patient Education [...] tion Online using Patient Portal and [employer]rd [employer] Apps Indication:Non-smoker Start:22-Mar-2021 Instruction Type:Patient Education Patient Instructions Indication:BMI 25.0-25.9,adult Start:18-Jul-2020 Instruction Type:Provider Instructions for Treatment How to Access Health Informa tion Online using Patient Portal and [employer]rd [employer] Apps Indication:BMI 25.0-25.9,adult Start:18-Jul-2020 Instruction Type:Patient Education [...] tion Online using Patient Portal and [employer]rd [employer] Apps Indication:Non-smoker Start:22-Mar-2021 Instruction Type:Patient Education Patient Instructions Indication:BMI 25.0-25.9,adult Start:18-Jul-2020 Instruction Type:Provider Instructions for Treatment How to Access Health Informa tion Online using Patient Portal and 3rd [employer] Apps Indication:BMI 25.0-25.9,adult Start:18-Jul-2020 Instruction Type:Patient Education [...] tion Online using Patient Portal and [employer]rd [employer] Apps Indication:Non-smoker Start:22-Mar-2021 Instruction Type:Patient Education Patient Instructions Indication:BMI 25.0-25.9,adult Start:18-Jul-2020 Instruction Type:Provider Instructions for Treatment How to Access Health Informa tion Online using Patient Portal and [employer]rd [employer] Apps Indication:BMI 25.0-25.9,adult Start:18-Jul-2020 Instruction Type:Patient Education [...] tion Online using Patient Portal and [employer] Apps Indication:Non-smoker Start:22-Mar-2021 Instruction Type:Patient Education Patient Instructions Indication:BMI 25.0-25.9,adult Start:18-Jul-2020 Instruction Type:Provider Instructions for Treatment How to Access Health Informa tion Online using Patient Portal and [employer]rd [employer] Apps Indication:BMI 25.0-25.9,adult Start:18-Jul-2020 Instruction Type:Patient Education [...] tion Online using Patient Portal and [employer]rd [employer] Apps Indication:Non-smoker Start:22-Mar-2021 Instruction Type:Patient Education Patient Instructions Indication:BMI 25.0-25.9,adult Start:18-Jul-2020 Instruction Type:Provider Instructions for Treatment How to Access Health Informa tion Online using Patient Portal and [employer] Apps Indication:BMI 25.0-25.9,adult Start:18-Jul-2020 Instruction Type:Patient Education [...] tion Online using Patient Portal and [employer]rd [employer] Apps Indication:BMI 25.0-25.9,adult Start:18-Jul-2020 Instruction Type:Patient Edu [...] BE BASED ON THE PRIMARY CLINICAL RECORDS. [facility] [place] provides no warranty or guarantee of the accuracy or completeness of information in this document.
== END | disposition home or self-care (01) ==
LOC: CVS 14:05
PROVIDERS: PCP Internal Medicine; Referring Provider Internal Medicine; Visit Provider Internal Medicine
DX: M79.89 Other specified soft tissue disorders (principal)
CPT/HCPCS: 93971

== ENCOUNTER → 2023-08-26 | Outpatient (CLI) | payer BC, SELFPAY ==
--- NOTE | 2023-08-26 14:45 | CT_ITS ---
We are attempting to reach an attending provider to discuss findings. An addendum with communication details will be sent when the communication is complete. STUDY: CTA CHEST REASON FOR EXAM: Male, 62 years old. pulmonary emboli RADIATION DOSAGE (If Supplied By Facility): CTDIvol = ( 13.66 ) mGy, DLP = ( 410.81 ) mGycm TECHNIQUE: The examination was performed with the intravenous administration of IV 100mL Isovue-370. Post-processing of the angiographic images was performed, with multiplanar reformation and 3D reconstruction. Individualized dose optimization techniques were used for this CT. COMPARISON: None. FINDINGS: Normal enhancement of the main pulmonary artery and right and left pulmonary arteries. There are tiny intraluminal clots within the subsegmental vessels of the right lower lobe . Normal thoracic aorta and visualized great vessels. There is no demonstrated aortic dissection. Heart size normal. There is multivessel coronary artery calcification Normal mediastinum. Normal hilar regions. Normal visualized trachea and bronchi. The lungs are well expanded. Minor atelectasis within the dependent portion of the lungs. There is more pronounced atelectasis or infiltrate within the superior segment of the right lower lobe and posterior segment of the right lower lobe.. Normal pleura. Multiple small subcentimeter bilateral axillary nodes likely benign. Dorsal spine demonstrates mild spondylosis. Normal visualized upper abdomen. CT/CTA Chest W/WO Contrast IMPRESSION: Pulmonary emboli within the subsegmental branches of the right lower lobe associated with right basilar atelectasis. Electronically Signed: Temo Dunne MD at 17:01 EDT ,
[2023-08-26 15:23] LABS: EGFR FINGERSTICK > 60.0000 mL/min (>60)
== END | disposition home or self-care (01) ==
LOC: CT 14:44
PROVIDERS: PCP Internal Medicine; Referring Provider Internal Medicine; Visit Provider Internal Medicine
DX: I26.99 Other pulmonary embolism without acute cor pulmonale (principal)
CPT/HCPCS: 71275; Q9967

== ENCOUNTER → 2023-09-02 | Outpatient (CLI) | payer BC, SELFPAY ==
[2023-09-02 07:50] LABS: Bacteria 0 SEEN /hpf (None Seen); Mucous, Urine 0 SEEN /hpf (<or=2+); White Blood Cells 0 SEEN /hpf (0-5)
[2023-09-02 08:39] LABS: Absolute Lymphocyte Count 1.57 X10^3/uL (0.83-4.51); Absolute Neutrophil Count 3.3 X10^3/uL (2.0-7.7); Basophil# 0.03 X10^3/uL; Basophil% 0.5 % (0-1); Eosinophils% 3.6 % (0-5); Hematocrit 44.5 % (40-54); Hemoglobin 14.8 g/dL (13.0-16.5); Lymphocyte # 1.57 X10^3/ul (0.83-4.51); Lymphocyte % 28.2 % (19-41); Mean Corp Hgb Conc 33.3 g/dL (32-36); Mean Corpuscular Volume 93.1 fL (80-94); Mean Platelet Vol. 9.9 fl (6.2-12.0); Monocyte# 0.43 X10^3/uL; Monocyte% 7.7 % (0-10); NRBC Flagged by Analyzer 0 % (0-5); Neutrophil # 3.32 X10^3/uL (2.7-7.7); Neutrophil % 59.6 % (47-70); Platelet Count 266 K/mm3 (150-450); RBC Distribution Width CV 13.2 % (11.6-14.6); RBC Distribution Width SD 45.1 fl (35.1-43.9); Red Blood Count 4.78 M/mm3 (4.6-6.2); White Blood Count 5.6 K/mm3 (4.4-11.0)
[2023-09-02 08:46] LABS: Color, Urine Yellow (Yellow); Glucose, Dipstick Normal (Normal); Ketone-Dipstick Negative (Negative); Leukocyte Esterase-Dipstick Negative /ul (Negative); Nitrite-Dipstick Negative (Negative); Occult Blood-Urine 50 /ul (Negative); Protein-Dipstick 15 mg/dl (Negative); Specific Gravity, Urine 1.015 (1.002-1.030); Urine Bilirubin Dipstick Negative (Negative); Urine Clarity Clear (Clear); Urine Urobilinogen Normal (Normal)
[2023-09-02 08:54] LABS: Red Blood Cells-Urine 0-5 SEEN /hpf (0-5); Squamous Epithelial Cells - UA 0-5 SEEN /hpf (0-5)
[2023-09-02 09:11] LABS: Vitamin D,25 Hydroxy 25.6 ng/mL
[2023-09-02 09:17] LABS: ALB/GLOB Ratio 0.8 RATIO (0.9-2.4); AST(SGOT) 24 U/L (15-37); Alanine Aminotransfer ALT/SGPT 46 U/L (16-61); Albumin, Serum 3.2 g/dL (3.2-5.0); Alkaline Phosphatase 80 U/L (45-117); Anion Gap 4 (5-15); BUN 15 mg/dL (7-18); BUN/Creat Ratio 17.7 RATIO (10-20); Bilirubin, Direct 0.18 mg/dL (0.00-0.30); Calcium,Total 8.2 mg/dL (8.5-10.1); Chloride 108 mmol/L (98-107); Cholesterol 133 mg/dL (200); Creatinine, Serum 0.85 mg/dL (0.70-1.30); EST Glomerular Filtration Rate 98 mL/min (>60); Est Glom Filt Rate - Afr Amer 119 mL/min (>60); Glucose 102 mg/dL (74-106); High Density Lipoprotein 48 mg/dL; Potassium 4.3 mmol/L (3.5-5.1); Protein, Total 7.2 g/dL (6.4-8.2); Sodium Level 138 mmol/L (136-145); Triglycerides 126 mg/dL; Very Low Density Lipoprotein 25 mg/dL (5-40)
[2023-09-02 11:13] LABS: Microalbumin,Random Urine 21.3 mg/L (NO RANGE EST.)
== END | disposition home or self-care (01) ==
LOC: LAB 07:47
PROVIDERS: PCP Internal Medicine; Visit Provider Internal Medicine
DX: I10 Essential (primary) hypertension (principal); E78.00 Pure hypercholesterolemia, unspecified; E55.9 Vitamin D deficiency, unspecified
CPT/HCPCS: 36415; 80053; 80061; 81001; 82043; 82248; 82306; 82570; 84443; 85025

== ENCOUNTER → 2024-01-16 | Outpatient (CLI) | payer BC, SELFPAY ==
--- NOTE | 2024-01-16 14:42 | CT_ITS ---
STUDY: CTA CHEST REASON FOR EXAM: Male, 63 years old. CTA CHEST W/W/O CONTRAST -- Pulmonary emboli RADIATION DOSAGE (If Supplied By Facility): CTDIvol = ( 12.91 ) mGy, DLP = ( 452.61 ) mGycm TECHNIQUE: The examination was performed with the intravenous administration of IV 100mL Isovue-370. Post-processing of the angiographic images was performed, with multiplanar reformation and 3D reconstruction. Individualized dose optimization techniques were used for this CT. COMPARISON: CTA of the chest dated August 26, 2023 FINDINGS: Previously seen chronic fibrotic consolidation and groundglass edema of the right lower lobe is redemonstrated. Mild groundglass edema and interstitial thickening is redemonstrated in the left lower lobe. No visualized pneumonic consolidation. No infiltrates. No visualized nodules or masses or spiculated lesions. The upper lung camejo are clear. Normal enhancement of the main pulmonary artery and right and left pulmonary arteries. Normal enhancement of the bilateral peripheral pulmonary arteries. There is no demonstrated pulmonary embolism. There is atherosclerotic calcification of the aortic arch with tortuosity. There is no demonstrated aortic dissection. Normal heart and pericardium. There are calcifications of the coronary arteries. There are visualized mediastinal lymph nodes, which are within normal size limits, and with normal morphology. Normal hilar regions. Normal visualized trachea and bronchi. The lungs are well expanded. Normal chest wall structures. There are degenerative changes of thoracic spine. Unremarkable and stable visualized upper abdomen. CT/CTA Chest W/WO Contrast IMPRESSION: 1. Previously seen chronic fibrotic consolidation and groundglass edema of the right lower lobe is redemonstrated. 2. Mild groundglass edema and interstitial thickening is redemonstrated in the left lower lobe. No visualized pneumonic consolidation. No infiltrates. No visualized nodules or masses or spiculated lesions. The upper lung camejo are clear. 3. No demonstrated pulmonary embolism or arterial dissection. 4. Previously described tiny subsegmental pulmonary arterial clots of the right lower lobe are no longer present Electronically Signed: Alexi Ramesh MD at 15:52 EDT ,
[2024-01-16 15:16] LABS: CREATININE FINGERSTICK < 1.0 mg/dL (0.70-1.30); EGFR FINGERSTICK > 60.0000 mL/min (>60)
== END | disposition home or self-care (01) ==
LOC: CT 14:41
PROVIDERS: PCP Internal Medicine; Referring Provider Internal Medicine; Visit Provider Internal Medicine
DX: Z01.812 Encounter for preprocedural laboratory examination (principal); I26.99 Other pulmonary embolism without acute cor pulmonale
CPT/HCPCS: 71275; Q9967

== ENCOUNTER → 2024-02-28 | Outpatient (CLI) | payer BC, SELFPAY | END | disposition home or self-care (01) | PROVIDERS: PCP Internal Medicine; Referring Provider Internal Medicine; Visit Provider Internal Medicine | DX: I26.99 Other pulmonary embolism without acute cor pulmonale (principal) | CPT/HCPCS: 36415 ==

== ENCOUNTER → 2024-06-10 | Outpatient (CLI) | payer BC, SELFPAY ==
[2024-06-10 07:55] LABS: PSA,Total- Diagnostic < 0.01 ng/mL (0.0-4.0)
== END | disposition home or self-care (01) ==
LOC: LAB 06:45
PROVIDERS: PCP Internal Medicine; Referring Provider Internal Medicine; Visit Provider Nurse Practitioner
DX: C61 Malignant neoplasm of prostate (principal)
CPT/HCPCS: 36415; 84153

== ENCOUNTER → 2024-06-22 | Outpatient (CLI) | payer BC, SELFPAY ==
[2024-06-22 07:46] LABS: Glucose, Dipstick Normal (Normal); Ketone-Dipstick Negative (Negative); Leukocyte Esterase-Dipstick Negative /ul (Negative); Nitrite-Dipstick Negative (Negative); Occult Blood-Urine 25 /ul (Negative); Protein-Dipstick 15 mg/dl (Negative); Specific Gravity, Urine 1.025 (1.002-1.030); Urine Bilirubin Dipstick Negative (Negative); Urine Urobilinogen 1 mg/dl (Normal)
[2024-06-22 07:47] LABS: Absolute Lymphocyte Count 2.06 X10^3/uL (0.83-4.51); Absolute Neutrophil Count 3.4 X10^3/uL (2.0-7.7); Basophil# 0.06 X10^3/uL; Eosinophil# 0.19 X10^3/uL; Hemoglobin 15.1 g/dL (13.0-16.5); Lymphocyte # 2.06 X10^3/ul (0.83-4.51); Lymphocyte % 32.8 % (19-41); Mean Corp Hgb Conc 33.6 g/dL (32-36); Mean Corpuscular Hgb 31.2 pg (27.0-32.0); Monocyte# 0.58 X10^3/uL; Monocyte% 9.2 % (0-10); NRBC Flagged by Analyzer 0 % (0-5); Neutrophil # 3.35 X10^3/uL (2.7-7.7); Neutrophil % 53.2 % (47-70); Platelet Count 259 K/mm3 (150-450); RBC Distribution Width CV 12.6 % (11.6-14.6); Red Blood Count 4.84 M/mm3 (4.6-6.2); White Blood Count 6.3 K/mm3 (4.4-11.0)
[2024-06-22 07:52] LABS: Color, Urine Yellow (Yellow); Urine Clarity Clear (Clear)
[2024-06-22 08:30] LABS: ALB/GLOB Ratio 0.8 RATIO (0.9-2.4); AST(SGOT) 25 U/L (15-37); Alanine Aminotransfer ALT/SGPT 45 U/L (16-61); Albumin, Serum 3.2 g/dL (3.2-5.0); Alkaline Phosphatase 83 U/L (45-117); Anion Gap 5 (5-15); BUN 16 mg/dL (7-18); BUN/Creat Ratio 20.4 RATIO (10-20); Calcium,Total 8.6 mg/dL (8.5-10.1); Chloride 107 mmol/L (98-107); Creatinine, Serum 0.79 mg/dL (0.70-1.30); EST Glomerular Filtration Rate 106 mL/min (>60); Est Glom Filt Rate - Afr Amer 129 mL/min (>60); Globulin 3.8 g/dL (2.2-4.2); Glucose 107 mg/dL (74-106); PSA,Total- Diagnostic < 0.01 ng/mL (0.0-4.0); Potassium 4.5 mmol/L (3.5-5.1); Sodium Level 139 mmol/L (136-145)
[2024-06-22 09:39] LABS: Vitamin D,25 Hydroxy 9.6 ng/mL
== END | disposition home or self-care (01) ==
LOC: LAB 06:54
PROVIDERS: PCP Internal Medicine; Referring Provider Internal Medicine; Visit Provider Internal Medicine
DX: Z13.29 Encounter for screening for other suspected endocrine disorder (principal); C61 Malignant neoplasm of prostate; E55.9 Vitamin D deficiency, unspecified; E78.00 Pure hypercholesterolemia, unspecified
CPT/HCPCS: 36415; 80053; 81002; 82306; 84153; 84443; 85025

== ENCOUNTER → 2024-10-02 | Outpatient (CLI) | payer BC, SELFPAY ==
[2024-10-02 18:19] LABS: ALB/GLOB Ratio 1.3 RATIO (0.9-2.4); AST(SGOT) 31 U/L (<=37); Absolute Neutrophil Count 5.9 X10^3/uL (2.0-7.7); Alanine Aminotransfer ALT/SGPT 34 U/L (<=46); Albumin, Serum 4.1 g/dL (3.4-4.8); Alkaline Phosphatase 87 U/L (40-129); Anion Gap 12 (5-15); BUN 15 mg/dL (4-19); BUN/Creat Ratio 15.3 RATIO (10-20); Basophil# 0.05 X10^3/uL; Basophil% 0.6 % (0-1); Calcium,Total 9.4 mg/dL (7.6-11.0); Carbon Dioxide 21.8 mmol/L (21.0-32.0); Chloride 103 mmol/L (98-108); Creatinine, Serum 0.97 mg/dL (0.70-1.20); EST Glomerular Filtration Rate 89 (>60); Eosinophils% 2.3 % (0-5); Globulin 3.2 g/dL (2.2-4.2); Glucose 95 mg/dL (70-99); Hematocrit 46.1 % (40-54); Hemoglobin 15.8 g/dL (13.0-16.5); Lymphocyte % 20.9 % (19-41); Mean Corp Hgb Conc 34.3 g/dL (32-36); Mean Corpuscular Hgb 31.9 pg (27.0-32.0); Mean Corpuscular Volume 92.9 fL (80-94); Mean Platelet Vol. 10.4 fl (6.2-12.0); Monocyte# 0.67 X10^3/uL; Monocyte% 7.8 % (0-10); NRBC Flagged by Analyzer 0 % (0-5); Neutrophil # 5.85 X10^3/uL (2.7-7.7); Neutrophil % 67.8 % (47-70); Platelet Count 245 K/mm3 (150-450); Potassium 4.4 mmol/L (3.3-5.1); Protein, Total 7.4 g/dL (5.9-8.4); RBC Distribution Width CV 12.5 % (11.6-14.6); RBC Distribution Width SD 42.6 fl (35.1-43.9); Red Blood Count 4.96 M/mm3 (4.6-6.2); Sodium Level 137 mmol/L (133-145); Total Bilirubin 0.65 mg/dL (0.00-1.30); White Blood Count 8.6 K/mm3 (4.4-11.0)
[2024-10-02 18:26] LABS: Prothrombin Time (Protime)PT. 13.5 SECONDS (11.7-14.9)
[2024-10-02 18:27] LABS: Partial Thromboplast Time 52.3 Seconds (24.1-36.2)
== END | disposition home or self-care (01) ==
LOC: MTLAB 15:19
PROVIDERS: PCP Internal Medicine; Referring Provider Internal Medicine; Visit Provider Internal Medicine
DX: Z01.818 Encounter for other preprocedural examination (principal); I25.10 Atherosclerotic heart disease of native coronary artery without angina pectoris
CPT/HCPCS: 36415; 80053; 84443; 85025; 85610; 85730

== ENCOUNTER → 2024-11-11 | Outpatient (CLI) | payer BC, SELFPAY ==
--- NOTE | 2024-11-11 09:36 | VDLE_ITS ---
Reason For Study Reason For Study: Right leg pain RIGHT LEFT GSV is normal. CFV is compressible, spontaneous, phasic, competent, CFV is compressible, spontaneous, phasic, competent and demonstrates normal augmentation. and demonstrates normal augmentation. FV prox is partially compressible with bright intraluminal echoes consistent with Chronic DVT. Continuous venous flow noted. Acute deep vein thrombosis is noted in the right FV mid-distal, ProfundaV, PopV, T/P Trunk and GastrocV. It is NONCOMPRESSIBLE and dilated. PTV is compressible. RT PerV is compressible. Procedure This is a venous duplex using B-mode, color flow and spectral Doppler. Exam performed in department. A preliminary report was called and/or faxed to [place], affirmative action officer. VL/Venous Duplex US, Unilateral Interpretation Summary Acute deep vein thrombosis noted in the right femoral vein, profunda vein, popl iteal vein, tibioperoneal trunk vein, gastrocnemius vein. Chronic deep vein thrombosis noted in the right femoral vein. Ordering Physician: Joana Navarro Referring Physician: Shelby Arce M.D. Performed By: Mary Durand RVT
== END | disposition home or self-care (01) ==
LOC: CVS 09:35
PROVIDERS: PCP Internal Medicine; Referring Provider Podiatrist; Visit Provider Podiatrist
DX: M79.604 Pain in right leg (principal); R60.0 Localized edema
CPT/HCPCS: 93971

== ENCOUNTER → 2025-01-08 | Outpatient (CLI) | payer BC, SELFPAY ==
[2025-01-08 08:59] LABS: Mucous, Urine 0 SEEN /hpf (<or=2+)
[2025-01-08 10:05] LABS: Hematocrit 44.8 % (40-54); Hemoglobin 15.4 g/dL (13.0-16.5); Immature Granulocytes Count 0.030 X10^3/uL (0.0-0.0); Mean Corp Hgb Conc 34.4 g/dL (32-36); Mean Corpuscular Volume 92.8 fL (80-94); Mean Platelet Vol. 10.1 fl (6.2-12.0); NRBC Flagged by Analyzer 0 % (0-5); Platelet Count 252 K/mm3 (150-450); RBC Distribution Width CV 12.9 % (11.6-14.6); RBC Distribution Width SD 43.9 fl (35.1-43.9); Red Blood Count 4.83 M/mm3 (4.6-6.2); White Blood Count 6.4 K/mm3 (4.4-11.0)
[2025-01-08 10:07] LABS: Color, Urine Yellow (Yellow); Glucose, Dipstick Normal (Normal); Ketone-Dipstick Negative (Negative); Leukocyte Esterase-Dipstick Negative /ul (Negative); Nitrite-Dipstick Negative (Negative); Occult Blood-Urine 10 /ul (Negative); Protein-Dipstick 30 mg/dl (Negative); Specific Gravity, Urine 1.010 (1.002-1.030); Urine Bilirubin Dipstick Negative (Negative)
[2025-01-08 10:35] LABS: Creatinine, Urine (random) 146.00 mg/dL (39.00-259.00); Microalbumin,Random Urine < 12.0 mg/L (<20 mg/L)
[2025-01-08 10:57] LABS: Red Blood Cells-Urine 0-5 SEEN /hpf (0-5); Squamous Epithelial Cells - UA 0-5 SEEN /hpf (0-5)
[2025-01-08 14:43] LABS: AST(SGOT) 29 U/L (<=37); Alanine Aminotransfer ALT/SGPT 46 U/L (<=46); Albumin, Serum 3.9 g/dL (3.4-4.8); Alkaline Phosphatase 79 U/L (40-129); Bilirubin, Direct 0.29 mg/dL (0.00-0.30); Chloride 103 mmol/L (98-108); Cholesterol 147 mg/dL (<=200); Low Density Lipoprotein Calc. 74 mg/dL; Potassium 4.8 mmol/L (3.3-5.1); Triglycerides 149 mg/dL; Very Low Density Lipoprotein 30 mg/dL (5-40); cholesterol:hdl ratio screen 3.43
[2025-01-08 15:17] LABS: Anion Gap 12 (5-15); BUN 16 mg/dL (4-19); BUN/Creat Ratio 18.0 RATIO (10-20); Calcium,Total 8.8 mg/dL (7.6-11.0); Carbon Dioxide 23.5 mmol/L (21.0-32.0); Globulin 3.1 g/dL (2.2-4.2); Glucose 106 mg/dL (70-99); Vitamin D,25 Hydroxy 36.1 ng/mL (30-100)
== END | disposition home or self-care (01) ==
PROVIDERS: PCP Internal Medicine; Referring Provider Student in an Organized Health Care Education/Training Program; Visit Provider Student in an Organized Health Care Education/Training Program
DX: I25.10 Atherosclerotic heart disease of native coronary artery without angina pectoris (principal); E78.00 Pure hypercholesterolemia, unspecified; E55.9 Vitamin D deficiency, unspecified; I10 Essential (primary) hypertension
CPT/HCPCS: 36415; 80053; 80061; 81001; 82043; 82248; 82306; 82570; 84443; 85025

== ENCOUNTER → 2025-04-26 | Outpatient (CLI) | payer BC, SELFPAY ==
--- NOTE | 2025-04-26 15:09 | VDLE_ITS ---
Reason For Study : HX RLE DVT RIGHT LEFT GSV is normal. CFV is compressible, spontaneous, phasic, competent, CFV is compressible, spontaneous, phasic, competent and demonstrates normal augmentation. and demonstrates normal augmentation. Femoral Vein is PARTIALLY COMPRESSIBLE with hyperechoic web-like intraluminal echoes. Flow appears spontaneous, phasic and competent with normal augmentation. Finding is consistent with CHRONIC DVT Popliteal Vein is PARTIALLY COMPRESSIBLE with hyperechoic web-like intraluminal echoes. Flow appears spontaneous, phasic and INCOMPETENT with reflux greater than 1 second. Finding is consistent with CHRONIC DVT. The T/P Trunk is PARTIALLY COMPRESSIBLE with hyperechoic web-like intraluminal echoes. . PTV is compressible. RT PerV is compressible. Procedure This is a venous duplex using B-mode, color flow and spectral Doppler. Exam performed in department. The exam was diagnostic. VL/Venous Duplex US, Unilateral Interpretation Summary Chronic post thrombotic changes noted in the right femoral vein, popliteal vein , tibioperoneal trunk vein. Positive for reflux in the right popliteal vein. Ordering Physician: Shelby Arce Referring Physician: Shelby Arce Performed By: Pepe Norris RVT
== END | disposition home or self-care (01) ==
PROVIDERS: PCP Internal Medicine; Referring Provider Internal Medicine; Visit Provider Internal Medicine
DX: I82.402 Acute embolism and thrombosis of unspecified deep veins of left lower extremity (principal)
CPT/HCPCS: 93971